=== PATIENT | male | born 1945 | race Caucasian/White ===

== ENCOUNTER 2016-07-24 11:11 | Inpatient (IN) ==
--- NOTE | 2016-07-24 11:25 | Emergency Department Note ---
Disposition Clinical Impression: Frail elderly, Fall, Blunt injury of chest, Abrasion, Malignancy, Facial injury , Tachycardia, Weakness, Abnormal EKG, Anemia, Lactic acidosis, Pleural effusion , COPD (chronic obstructive pulmonary disease), Gallbladder disease, Sinusitis Disposition: Admitted As Inpatient Referrals: Mady Aparicio MD [Primary Care Provider] - Forms: ED Satisfaction Letter General Adult HPI - General Chief complaint: ED Weakness Stated complaint: Weakness/low bp Time Seen by Provider: 07/24/16 11:23 Source: patient, family Limitations: no limitations - History of Present Illness HPI Narrative: 70-year-old male reports the emergency department multiple complaints. The patient has history of liver malignancy is on chemotherapy. He has home health he is here with multiple family members. They are concerned because the patient has had low blood pressures and has fallen a few times. There is a history of injury to the face, chest, and right upper extremity. The patient remembers the events but reports he is so weak he falls down. There is no history of seizure-like activity. The patient describes anterior chest pain and injury over the sternum. There is no history of coughing up blood or overt shortness of breath. There is no history of left arm and left jaw pain. No left upper or bilateral lower extremity pain. There is no history of difficulty moving the arms or legs independently, no unilateral weakness or numbness. No dysarthria or confusion. The patient denies neck or spinal pain. He has minor right arm pain. Scrapes and abrasions are reported. The patient is not anticoagulated. He reports bilateral rib pain. There is also concern for spreading malignancy, the family consulted with their oncologist reservation sales agent who recommended patient come to the ED and be evaluated for spurring tumors and other issues. The patient has a colostomy. He reportedly had some blackened stool a few days ago. None reported today. The patient is not known to be anticoagulated. There is no history of leg swelling or pain or coughing up blood. No history of fever. Pain Scale: 10 - Related Data Home Medications Medication Instructions Recorded Confirmed Atenolol [Tenormin] 0.5 tab PO DAILY 03/12/16 07/02/16 Lisinopril-HCTZ 20-12.5 [Prinzide 1 tab PO DAILY 03/12/16 07/02/16 20-12.5] Omeprazole [PriLOSEC] 40 mg PO DAILY 03/12/16 07/02/16 Previous Rx's Medication Instructions Recorded Capecitabine [Xeloda] 500 mg PO BID #56 tablet 03/18/16 Ondansetron [Zofran] 4 mg PO Q8HR PRN #90 tablet 04/07/16 Prochlorperazine Maleate 10 mg PO Q8HR PRN #90 tablet 04/07/16 [Compazine] OxyCODONE Immed Rel [Roxicodone 5 10 mg PO Q8HR PRN #90 tablet 07/02/16 MG] Alprazolam [Xanax 0.25 MG Tablet] 0.25 mg PO BID PRN #60 tablet 07/16/16 Allergies Allergy/AdvReac Type Severity Reaction Status Date / Time sulfamethoxazole AdvReac Rash Verified 07/24/16 11:19 trimethoprim AdvReac Rash Verified 07/24/16 11:19 All systems ED: reviewed and negative except as stated. Past Medical History - Past Medical History Medical history: Reports: cancer, COPD, hypertension, other Surgical history: Reports: cancer surgery, colectomy, other Psychiatric history: Reports: depression - Social History Smoking Status: Current every day smoker Smokeless Tobacco Status: No Alcohol use: Reports: occasionally Drug use: Reports: none Physical Exam - General Limitations: no limitations General appearance: alert, in no apparent distress - Head Head exam: other (Abrasions on the nose, no facial or skull deformity otherwise negative.Negative zuniga sign bilaterally. Mandible intact) - Eye Eye exam: Present: normal appearance, PERRL, EOMI, scleral icterus. Absent: conjunctival injection, miosis, mydriasis - ENT ENT exam: normal exam, normal oropharynx, mucous membranes moist, TM's normal bilaterally, normal external ear exam - Neck Neck exam: Present: normal inspection, full ROM, trachea midline. Absent: tenderness, meningismus - Chest Chest inspection: Present: symmetric chest wall rise, tenderness (Abrasions noted over the sternum, tenderness to the bilateral ribs and anterior chest. No crepitance or step-off.) - Respiratory Respiratory exam: Present: prolonged expiratory phase. Absent: respiratory distress, wheezes - Cardiovascular Cardiovascular exam: Present: normal rhythm, tachycardia - Abdominal Exam Abdominal exam: Present: soft, tenderness, normal bowel sounds, other ( Colostomy in place without evidence of black or bloody material in the bag.). Absent: guarding, rebound, rigidity, trauma, pulsatile mass - Extremities Exam Extremities exam: Present: full ROM, normal capillary refill, other (Abrasions right upper extremity. Full range of motion of bilateral upper extremities without evidence of joint or bony defect all 4 extremities are warm and well perfused without cyanosis or edema.). Absent: tenderness, pedal edema, joint swelling, calf tenderness - Expanded Lower Extremity Exam Hip/Pelvis exam: Present: full ROM. Absent: tenderness Upper leg exam: Present: full ROM. Absent: tenderness Knee exam: Present: full ROM. Absent: tenderness Lower leg exam: Present: full ROM. Absent: tenderness Ankle exam: Present: full ROM. Absent: tenderness Foot/toe exam: Present: full ROM. Absent: tenderness Neurovascular/Tendon exam: Present: normal capillary refill. Absent: motor deficit, sensory deficit, tendon deficit, extremity cold to touch, pallor - Back Exam Back exam: Present: normal inspection, full ROM. Absent: tenderness, CVA tenderness (R), CVA tenderness (L), vertebral tenderness - Neurological Exam Neurological exam: Present: alert, oriented X3, CN II-XII intact. Absent: motor sensory deficit - Psychiatric Psychiatric exam: Present: normal affect, normal mood - Skin Skin exam: Present: warm, dry, intact, normal color. Absent: rash, cyanosis, diaphoresis, erythema, pallor, mottled Course Vital Signs Temperature 98.5 F 07/24/16 11:16 Pulse Rate 109 07/24/16 11:16 Respiratory Rate 18 07/24/16 11:16 Blood Pressure 125/69 07/24/16 11:16 O2 Sat by Pulse Oximetry 98 07/24/16 11:16 Temperature 99 F 07/24/16 14:47 Pulse Rate 813 07/24/16 14:47 Respiratory Rate 18 07/24/16 14:47 Blood Pressure 118/71 07/24/16 14:47 O2 Sat by Pulse Oximetry 98 07/24/16 14:47 Oxygen Delivery Oxygen Delivery Room Air Medical Decision Making - MDM Narrative Medical decision making narrative: The patient is elderly, he has a known malignancy, he has had multiple falls, the patient appears to be stable at this time, he is scheduled to have more liver stents per the family, they state Dr. Raf Pratt was going to do more procedures this coming Tuesday. The patient has an elevated CRP, he was initially tachycardic on arrival, IV fluids were given. CT head shows sinusitis , CT chest shows some lymphadenopathy. CT abdomen shows some pericholecystic fluid with concerns for potential acute cholecystitis. I reviewed the case with the family who very very uncomfortable taking the patient home. I spoke with the oncologist on-call Dr. Odell who the family had talked with earlier in the day, the oncologist recommended the patient come to the ED. On review with the oncologist, he recommends hospital admission. I spoke with the hospitalist on-call who has accepted the patient to their care. I also spoke with Dr. Ruiz, general surgeon who will act as travel consultant. An ultrasound of the gallbladder has been ordered. The patient was given Unasyn and fluids. He is currently stable pending admission. Based on the patient's frail elderly status, weakness with multiple falls, abnormal abdominal CT, and associated with malignancy with recent liver stenting, I think could be appropriate to admit the patient to the hospital. He was initially tachycardic but this defervesced status post some fluids. Currently stable. - Lab Data Lab results reviewed: Yes I reviewed the patient's lab results. Result diagrams: 07/24/16 11:34 07/24/16 11:34 Lab Results 07/24/16 07/24/16 07/24/16 Range/Units 11:34 11:34 11:34 WBC 6.8 (4.3-11.1) K/mcL RBC 2.92 L (4.19-5.50) M/mcL Hgb 8.4 L (12.9-16.9) g/dL Hct 26.4 L (37.5-50.1) % MCV 90.4 (83.0-100.0) fL MCH 28.8 (28.0-33.3) pg MCHC 31.8 (31.6-35.5) g/dL RDW 15.7 H (11.5-14.5) % Plt Count 200 (140-400) K/mcL MPV 10.3 (9.4-12.4) fL Immature Gran % 5.1 H (0-4) % Seg Neutrophils % 51.2 % Lymphocytes % 14.8 % Monocytes % 28.3 % Eosinophils % 0.3 % Basophils % 0.3 % Neutrophils # 3.5 (1.6-8.9) K/mcL Lymphocytes # 1.0 (0.6-4.6) K/mcL Monocytes # 1.9 H (0.0-1.3) K/mcL Eosinophils # 0.0 (0.0-0.6) K/mcL Basophils # 0.0 (0.0-0.2) K/mcL Toxic Granulation Present A (Not Present) Platelet Estimate Normal (Normal) Microcytosis Present A (Not Present) PT (9.4-12.1) Seconds INR APTT (26.0-36.0) Seconds Sodium 135 L (136-145) mEq/L Potassium 3.8 (3.5-4.5) mEq/L Chloride 97 L (98-109) mEq/L Carbon Dioxide 30 H (19-29) mEq/L BUN 18 (8-26) mg/dL Creatinine 1.00 (0.72-1.25) mg/dL Est GFR ( Amer) > 60 (> 60) Est GFR (Non-Af Amer) > 60 (> 60) BUN/Creatinine Ratio 18 (6-26) Glucose 168 H (70-99) mg/dL Calculated Osmolality 286 (280-300) Lactic Acid (0.5-2.2) mmol/L Calcium 8.5 L (8.6-10.8) mg/dL Total Bilirubin (0.2-1.2) mg/dL Direct Bilirubin (0.0-0.5) mg/dL Indirect Bilirubin (0.0-1.2) mg/dL AST (5-34) Units/L ALT (0-55) Units/L Alkaline Phosphatase (38-126) Units/L Troponin I 0.01 (0-0.03) ng/mL C-Reactive Protein (Less than 5) mg/L Serum Total Protein (6.0-8.3) g/dL Albumin (3.5-5.0) g/dL Globulin (2.4-3.5) g/dL Albumin/Globulin Ratio (1.1-2.2) Lipase 19 (8-78) Units/L Urine Color (Yellow) Urine Clarity (Clear) Urine pH (5.0-8.0) pH Units Ur Specific [place] (1.010-1.025) Urine Protein (Neg-Trace) mg/dL Urine Glucose (UA) (Normal) mg/dL Urine Ketones (Negative) mg/dL Urine Blood (Negative) Urine Nitrite (Negative) Urine Bilirubin (Negative) Urine Urobilinogen (Normal) mg/dL Ur Leukocyte Esterase (Negative) Urine Microscopic RBC (0-3) per hpf Urine Microscopic WBC (0-3) per hpf Ur Squamous Epith Cells (None-Few) per lpf Urine Bacteria (None-Few) per hpf Hyaline Casts (None-Few) per lpf Ur Culture Indicated? (NO) 07/24/16 07/24/16 07/24/16 Range/Units 11:34 11:34 11:34 WBC (4.3-11.1) K/mcL RBC (4.19-5.50) M/mcL Hgb (12.9-16.9) g/dL Hct (37.5-50.1) % MCV (83.0-100.0) fL MCH (28.0-33.3) pg MCHC (31.6-35.5) g/dL RDW (11.5-14.5) % Plt Count (140-400) K/mcL MPV (9.4-12.4) fL Immature Gran % (0-4) % Seg Neutrophils % % Lymphocytes % % Monocytes % % Eosinophils % % Basophils % % Neutrophils # (1.6-8.9) K/mcL Lymphocytes # (0.6-4.6) K/mcL Monocytes # (0.0-1.3) K/mcL Eosinophils # (0.0-0.6) K/mcL Basophils # (0.0-0.2) K/mcL Toxic Granulation (Not Present) Platelet Estimate (Normal) Microcytosis (Not Present) PT 11.7 (9.4-12.1) Seconds INR 1.1 APTT 31.1 (26.0-36.0) Seconds Sodium (136-145) mEq/L Potassium (3.5-4.5) mEq/L Chloride (98-109) mEq/L Carbon Dioxide (19-29) mEq/L BUN (8-26) mg/dL Creatinine (0.72-1.25) mg/dL Est GFR ( Amer) (> 60) Est GFR (Non-Af Amer) (> 60) BUN/Creatinine Ratio (6-26) Glucose (70-99) mg/dL Calculated Osmolality (280-300) Lactic Acid 2.3 H (0.5-2.2) mmol/L Calcium (8.6-10.8) mg/dL Total Bilirubin 2.7 H (0.2-1.2) mg/dL Direct Bilirubin 1.9 H (0.0-0.5) mg/dL Indirect Bilirubin 0.8 (0.0-1.2) mg/dL AST 66 H (5-34) Units/L ALT 78 H (0-55) Units/L Alkaline Phosphatase 620 H (38-126) Units/L Troponin I (0-0.03) ng/mL C-Reactive Protein (Less than 5) mg/L Serum Total Protein 6.6 (6.0-8.3) g/dL Albumin 1.8 L (3.5-5.0) g/dL Globulin 4.8 H (2.4-3.5) g/dL Albumin/Globulin Ratio 0.4 L (1.1-2.2) Lipase (8-78) Units/L Urine Color (Yellow) Urine Clarity (Clear) Urine pH (5.0-8.0) pH Units Ur Specific [place] (1.010-1.025) Urine Protein (Neg-Trace) mg/dL Urine Glucose (UA) (Normal) mg/dL Urine Ketones (Negative) mg/dL Urine Blood (Negative) Urine Nitrite (Negative) Urine Bilirubin (Negative) Urine Urobilinogen (Normal) mg/dL Ur Leukocyte Esterase (Negative) Urine Microscopic RBC (0-3) per hpf Urine Microscopic WBC (0-3) per hpf Ur Squamous Epith Cells (None-Few) per lpf Urine Bacteria (None-Few) per hpf Hyaline Casts (None-Few) per lpf Ur Culture Indicated? (NO) 07/24/16 07/24/16 Range/Units 11:34 12:14 WBC (4.3-11.1) K/mcL RBC (4.19-5.50) M/mcL Hgb (12.9-16.9) g/dL Hct (37.5-50.1) % MCV (83.0-100.0) fL MCH (28.0-33.3) pg MCHC (31.6-35.5) g/dL RDW (11.5-14.5) % Plt Count (140-400) K/mcL MPV (9.4-12.4) fL Immature Gran % (0-4) % Seg Neutrophils % % Lymphocytes % % Monocytes % % Eosinophils % % Basophils % % Neutrophils # (1.6-8.9) K/mcL Lymphocytes # (0.6-4.6) K/mcL Monocytes # (0.0-1.3) K/mcL Eosinophils # (0.0-0.6) K/mcL Basophils # (0.0-0.2) K/mcL Toxic Granulation (Not Present) Platelet Estimate (Normal) Microcytosis (Not Present) PT (9.4-12.1) Seconds INR APTT (26.0-36.0) Seconds Sodium (136-145) mEq/L Potassium (3.5-4.5) mEq/L Chloride (98-109) mEq/L Carbon Dioxide (19-29) mEq/L BUN (8-26) mg/dL Creatinine (0.72-1.25) mg/dL Est GFR ( Amer) (> 60) Est GFR (Non-Af Amer) (> 60) BUN/Creatinine Ratio (6-26) Glucose (70-99) mg/dL Calculated Osmolality (280-300) Lactic Acid (0.5-2.2) mmol/L Calcium (8.6-10.8) mg/dL Total Bilirubin (0.2-1.2) mg/dL Direct Bilirubin (0.0-0.5) mg/dL Indirect Bilirubin (0.0-1.2) mg/dL AST (5-34) Units/L ALT (0-55) Units/L Alkaline Phosphatase (38-126) Units/L Troponin I (0-0.03) ng/mL C-Reactive Protein 109 H (Less than 5) mg/L Serum Total Protein (6.0-8.3) g/dL Albumin (3.5-5.0) g/dL Globulin (2.4-3.5) g/dL Albumin/Globulin Ratio (1.1-2.2) Lipase (8-78) Units/L Urine Color Dark Yellow (Yellow) Urine Clarity Cloudy A (Clear) Urine pH 6.0 (5.0-8.0) pH Units Ur Specific [place] 1.025 (1.010-1.025) Urine Protein 100 H (Neg-Trace) mg/dL Urine Glucose (UA) Normal (Normal) mg/dL Urine Ketones Negative (Negative) mg/dL Urine Blood Negative (Negative) Urine Nitrite Negative (Negative) Urine Bilirubin Moderate H (Negative) Urine Urobilinogen 4.0 H (Normal) mg/dL Ur Leukocyte Esterase Trace H (Negative) Urine Microscopic RBC 0-3 (0-3) per hpf Urine Microscopic WBC 0-3 (0-3) per hpf Ur Squamous Epith Cells Many H (None-Few) per lpf Urine Bacteria None Seen (None-Few) per hpf Hyaline Casts None Seen (None-Few) per lpf Ur Culture Indicated? YES A (NO) - Radiology Data Radiology results reviewed: Yes I reviewed the patient's radiology results.
[2016-07-24] MEDS ORDERED: 0.9 % Sodium Chloride 1,000 ML IVC ONE (11:27)
[2016-07-24 11:53] LABS: Basophils % 0.3 %; Eosinophils % 0.3 %; Hematocrit 26.4 % (37.5-50.1); Hemoglobin 8.4 g/dL (12.9-16.9); Immature Granulocytes % 5.1 % (0-4); Lymphocytes % 14.8 %; Mean Corpuscular HGB Conc 31.8 g/dL (31.6-35.5); Mean Corpuscular Hemoglobin 28.8 pg (28.0-33.3); Mean Corpuscular Volume 90.4 fL (83.0-100.0); Mean Platelet Volume 10.3 fL (9.4-12.4); Monocytes # 1.9 K/mcL (0.0-1.3); Monocytes % 28.3 %; Neutrophils # 3.5 K/mcL (1.6-8.9); Platelet Count 200 K/mcL (140-400); Red Blood Count 2.92 M/mcL (4.19-5.50); Red Cell Distribution Width 15.7 % (11.5-14.5); Segmented Neutrophils % 51.2 %
[2016-07-24] MEDS ORDERED: Tdap (Boostrix) Vaccine 0.5 ML SYRINGE IM ONE (11:53)
[2016-07-24 11:58] LABS: INR 1.1; Prothrombin Time 11.7 Seconds (9.4-12.1)
[2016-07-24 12:01] LABS: Activated Partial Thrombo Time 31.1 Seconds (26.0-36.0)
[2016-07-24 12:07] LABS: Microcytosis Present (Not Present)
[2016-07-24 12:08] LABS: Albumin/Globulin Ratio 0.4 (1.1-2.2); Bilirubin,Direct 1.9 mg/dL (0.0-0.5); Bilirubin,Indirect 0.8 mg/dL (0.0-1.2); Bilirubin,Total 2.7 mg/dL (0.2-1.2); Globulin 4.8 g/dL (2.4-3.5); Platelet Estimate Normal (Normal); Total Protein 6.6 g/dL (6.0-8.3); Toxic Granulation Present (Not Present)
[2016-07-24 12:09] LABS: BUN/Creatinine Ratio 18 (6-26); Blood Urea Nitrogen 18 mg/dL (8-26); Calcium 8.5 mg/dL (8.6-10.8); Carbon Dioxide 30 mEq/L (19-29); Chloride 97 mEq/L (98-109); Glucose 168 mg/dL (70-99); Osmolality,Calculated 286 (280-300); Potassium 3.8 mEq/L (3.5-4.5); Sodium 135 mEq/L (136-145); eGFR For African Americans > 60 (> 60); eGFR For Non-African Americans > 60 (> 60)
[2016-07-24 12:10] LABS: Albumin 1.8 g/dL (3.5-5.0)
[2016-07-24 12:31] LABS: Bilirubin,Urine Moderate (Negative); Blood,Urine Negative (Negative); Clarity,Urine Cloudy (Clear); Glucose,Urine (UA) Normal (Normal); Ketones,Urine Negative (Negative); Leukocyte Esterase,Urine Trace (Negative); Nitrite,Urine Negative (Negative); Protein,Urine 100 mg/dL (Neg-Trace); Specific Gravity,Urine 1.025 (1.010-1.025)
[2016-07-24 12:33] LABS: Bacteria,Urine None Seen per hpf (None-Few); Hyaline Casts,Urine None Seen per lpf (None-Few); Squamous Epithelial Cell,Urine Many per lpf (None-Few); WBC,Urine 0-3 per hpf (0-3)
[2016-07-24 12:47] LABS: RBC,Urine 0-3 per hpf (0-3)
[2016-07-24 12:48] LABS: Color,Urine Dark Yellow (Yellow)
[2016-07-24] MEDS ORDERED: Ampicillin/Sulbactam 3,000 MG in 0.9 % Sodium Chloride Mini Bag 100 ML IVPB ONE (14:01)
[2016-07-24 14:25] LABS: Lipase 19 Units/L (8-78)
[2016-07-24] MEDS ORDERED: Naloxone 0.4 MG/ML INJ IVP PRN (17:18)
[2016-07-24] MEDS ORDERED: *HR* Morphine 2 MG/ML SYRINGE IVP PRN (17:18)
[2016-07-24] MEDS ORDERED: *HR* OxyCODONE Immed Rel 5 MG TABLET PO PRN (17:23)
[2016-07-24] MEDS ORDERED: ALPRAZolam 0.25 MG TABLET PO PRN (17:23)
--- NOTE | 2016-07-24 17:51 | Internal Med History&Physical ---
Date of Encounter: 07/24/16 Time of Encounter: 17:25 Assessment and Plan (1) Acute cholecystitis Current visit: Yes Status: Suspected Patient presenting with lightheadedness and dizziness and CT findings suggestive of acute cholecystitis. Will place patient in the hospital for observation for further workup. Keep nothing by mouth for now. IV fluids. IV antibiotics. Pain control. Consult surgery. (2) Anemia Current visit: Yes Status: Chronic Hemoglobin 8.4 today. It was 8.7 on 07/16/16. We will monitor blood counts. Denies any active melanotic stools. GI will be consulted. Qualifiers: Anemia type: other cause Other causes of anemia: chronic disease, neoplastic Qualified Code(s): D63.0 - Anemia in neoplastic disease (3) Colon cancer metastasized to liver Current visit: Yes Status: Chronic Patient with colon cancer metastasis to liver status post biliary stents. Patient was scheduled to undergo permanent stent exchange on Tuesday. We will consult GI for their recommendations. (4) Fall Current visit: Yes Status: Acute Due to dizziness and lightheadedness and dehydration. Will hydrate intravenously. Check orthostatic blood pressure. Physical therapy. Qualifiers: Encounter type: initial encounter Qualified Code(s): W19.XXXA - Unspecified fall, initial encounter (5) Blunt injury of chest Current visit: Yes Status: Acute No fractures noted on CT. Will treat symptomatically for pain control. Also give incentive spirometry for atelectasis. Qualifiers: Encounter type: initial encounter Qualified Code(s): S29.8XXA - Other specified injuries of thorax, initial encounter (6) COPD (chronic obstructive pulmonary disease) Current visit: No Status: Chronic We will use bronchodilator nebs as needed and O2 supplementation as needed. Patient is currently in acute exacerbation. Qualifiers: COPD type: emphysema Emphysema type: other Qualified Code(s): J43.8 - Other emphysema (7) DVT prophylaxis Current visit: Yes Status: Acute With SCDs. We will hold off on medical anticoagulation due to possible GI bleed. Internal Medicine - H&P: HPI Chief complaint: Weakness, dizziness, fall and low blood pressure Admitted From: Emergency Dept Plans for Post Hospital Care: Home History of present illness: Mr. 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 He had called his oncologist who advised him to come to the ER. He denies any nausea or diarrhea. He was seen by oncology on the of this month and at that time he had reported some dark colored stools. He says this has since cleared up. Patient is status post colectomy and has colostomy bag in place. He denies any palpitations. Denies any fever or chills or night sweats. No cough or shortness of breath. He does report that he has not been drinking enough water and feels dehydrated. Past Med Surg Social Fam HX - Past Medical History Attestation: Yes The following information was validated with the patient. Source: patient Medical history: cancer, COPD, hypertension, other (Colon cancer with metastases to liver) Psychiatric history: depression - Past Surgical History Surgical History: cancer surgery, colectomy, other - Social History Smoking Status: Current every day smoker Smokeless Tobacco Status: No Alcohol use: occasionally Drug use: none Internal Medicine - H&P: Meds Atenolol [Tenormin] 25 mg PO DAILY 03/12/16 [History] Lisinopril-HCTZ 20-12.5 [Prinzide 20-12.5] 1 tab PO DAILY 03/12/16 [History] Omeprazole [PriLOSEC] 40 mg PO DAILY 03/12/16 [History] Ondansetron [Zofran] 4 mg PO Q8HR PRN #90 tablet 04/07/16 [Rx] Prochlorperazine Maleate [Compazine] 10 mg PO Q8HR PRN #90 tablet 04/07/16 [Rx] OxyCODONE Immed Rel [Roxicodone 5 MG] 10 mg PO Q8HR PRN #90 tablet 07/02/16 [Rx] Alprazolam [Xanax 0.25 MG Tablet] 0.25 mg PO BID PRN #60 tablet 07/16/16 [Rx] Allergies sulfamethoxazole Allergy (Verified 07/24/16 15:57) Rash trimethoprim Allergy (Verified 07/24/16 15:57) Rash All Systems PM: A 10-system review of systems was performed and is negative for pertinent findings except as documented above in the HPI. - Constitutional Constitutional: lethargy, malaise - EENT Eyes: no change in vision, no discharge, no pain, no photophobia Ears: no ear discharge, no ear pain, no tinnitus Nose, mouth and throat: no dysphagia, no nasal discharge, no neck pain, no sore throat - Cardiovascular Cardiovascular ROS IM: no chest pain, no diaphoresis, no dyspnea, no lightheadedness, no palpitations, no syncope - Respiratory Respiratory: no cough, no dyspnea, no wheezing, no excessive phlegm production - Gastrointestinal Gastrointestinal: no abdominal pain, no diarrhea, no hematemesis, no hematochezia, no melena, no nausea, no vomiting - Musculoskeletal Musculoskeletal ROS IM: no numbness, no tingling - Integumentary Integumentary IM: jaundice, no rash, no unusual bruising - Neurological Neurological ROS: no confusion, no convulsions, no focal weakness, no numbness, no tingling, no tremor(s) - Hematologic/Lymphatic Hematologic/Lymphatic: no easy bruising - Constitutional Vitals: Temp Pulse Resp BP Pulse Ox 98.9 F 84 16 124/82 97 07/24/16 17:01 07/24/16 15:54 07/24/16 17:01 07/24/16 17:01 07/24/16 15:54 General appearance: Present: cooperative, mild distress, A&O X 3, answers questions appropriately - Head Head exam: Present: atraumatic, normocephalic - Eye Eye exam: Present: EOMI, PERRL, scleral icterus, conjuntiva pink, sclera anicteric - Neck Neck exam general surgery: Present: supple, trachea midline. Absent: lymphadenopathy - Respiratory Respiratory exam: Present: CTAB. Absent: accessory muscle use, rales, rhonchi, wheezes - Cardiovascular Cardiovascular exam: Present: RRR, +S1, +S2. Absent: diastolic murmur, gallop, rubs, systolic murmur - GI/Abdominal GI/Abdominal exam: Present: normal bowel sounds, soft, no peritoneal signs. Absent: distended, tenderness Additional comments: Colostomy bag in place - Extremities Exam Extremities exam: Present: warm, radial pulses palpable and symetrical. Absent : calf tenderness, cyanotic, pedal edema - Neurological Exam Neurological exam: Present: alert, CN II-XII intact, oriented X3, no focal deficits. Absent: facial droop, speech deficit - Psychiatric Psychiatric exam: Present: flat affect - Skin Skin exam: Present: dry, intact Internal Med - H&P Results - Labs CBC & Chem 7: 07/24/16 11:34 07/24/16 11:34 - Impressions Impressions Chest X-Ray 07/24/16 11:25 IMPRESSION: 1. No acute cardiopulmonary process identified. 2. COPD. D/ / 07/24/2016 12:14:59 Wesley Laws MD / [email or web address] Interpreting Provider: Wesley Laws MD Head CT 07/24/16 11:41 IMPRESSION: No acute intracranial abnormality. Right maxillary and left sphenoid sinusitis. D/ / Bobby Alexis MD / Bobby Alexis MD Interpreting Provider: Bobby Alexis MD Abdomen/Pelvis CT 07/24/16 11:42 IMPRESSION: Gallbladder distension and wall thickening with possible pericholecystic fluid concerning for acute cholecystitis. Interval placement of biliary stents. Degree of intrahepatic biliary ductal dilation is similar to the previous exam. Right hepatic lobe mass mildly increased in size. Small volume ascites increased as well. Central hepatic mass poorly delineated. Abnormal soft tissue fills multiple central bile ducts. Stable left adrenal nodule. Circumferential bladder wall thickening, unchanged. D/ / Yaniv Jiang MD / Yaniv Jiang MD Interpreting Provider: Yaniv Jiang MD Chest CT 07/24/16 11:42 IMPRESSION: Slight increase in size of lymph node anterior to the pericardium, either reactive or metastatic Bandlike opacities at the lung bases, likely subsegmental atelectasis. There is trace pleural fluid Mild emphysema D/ / Paul Higginbotham MD / Paul Higginbotham MD Interpreting Provider: Paul Higginbotham MD Abdomen Ultrasound 07/24/16 14:26 IMPRESSION: Gallbladder sludge/nonshadowing stones with negative Wagner sign. There is mild gallbladder wall thickening and trace pericholecystic/perihepatic fluid. These findings may be reactive. D/ / Yaniv Jiang MD / Yaniv Jiang MD Interpreting Provider: Yaniv Jiang MD - Attending Attestation This document has been at least partially created by [employer] voice recognition technology by Dr. Ragsdale. Errors in grammar, wording or other phrases may exist. If errors are found after the documentation is signed, they will be addressed individually in the addendum section of this document when appropriate.
[2016-07-24] MEDS ORDERED: *HR* Heparin 5,000 UNIT/ML VIAL SQ SCH (18:00)
[2016-07-24] MEDS ORDERED: Ipratropium/Albuterol Neb 3 ML IH PRN (18:02)
--- NOTE | 2016-07-24 18:16 | General Surgery Consult Note ---
<Floyd Ulloa - Last Filed: 07/24/16 18:10> Date of Encounter: 07/24/16 Time of Encounter: 18:10 Assessment and Plan (1) Acute cholecystitis Current Visit: Yes Status: Suspected Pt. initially presented for fall on right side of chest d/t lightheadedness He has a hx of colon cx with liver metastasis s/p biliary stents. Patient was scheduled to undergo permanent stent exchange on Tuesday. RUQ U/S revealed gallbladder sludge/nonshadowing stones with negative Wagner sign. There is mild gallbladder wall thickening and trace pericholecystic/ perihepatic fluid. These findings may be reactive vs. 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 Schultz is his oncologist (3) Fall Current Visit: Yes Status: Acute CT head negative right sided abdominal pain s/p fall Qualifiers: Encounter type: initial encounter Qualified Code(s): W19.XXXA - Unspecified fall, initial encounter History of Present Illness Consult date: 07/24/16 Reason for consult: other (abnormal gallbladder findings on CT) Requesting physician: Fred Stringer History of present illness: Mr. 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 He had called his oncologist who advised him to come to the ER. He denies any nausea or diarrhea. He was seen by oncology on the 10th of this month and at that time he had reported some dark colored stools. He says this has since cleared up. Patient is status post colectomy and has colostomy bag in place. Abd/Pel CT revealed gallbladder distention and wall thickening with possible pericholecystic fluid concerning for acute cholecystitis. U/S revealed gallbladder sludge/nonshadowing stones with negative Wagner sign. There is mild gallbladder wall thickening and trace pericholecystic/perihepatic fluid. He denies any abdominal pain at this time or any nausea/vomiting. There is some tenderness in the RUQ but wagner sign is absent. Past Med Surg Social Fam HX - Past Medical History Medical history: cancer, COPD, hypertension, other (Colon cancer with metastases to liver) Psychiatric history: depression - Past Surgical History Surgical History: cancer surgery, colectomy, other - Social History Smoking Status: Current every day smoker Smokeless Tobacco Status: No Alcohol use: occasionally Drug use: none Medications and Allergies Atenolol [Tenormin] 25 mg PO DAILY 03/12/16 [History] Lisinopril-HCTZ 20-12.5 [Prinzide 20-12.5] 1 tab PO DAILY 03/12/16 [History] Omeprazole [PriLOSEC] 40 mg PO DAILY 03/12/16 [History] Ondansetron [Zofran] 4 mg PO Q8HR PRN #90 tablet 04/07/16 [Rx] Prochlorperazine Maleate [Compazine] 10 mg PO Q8HR PRN #90 tablet 04/07/16 [Rx] OxyCODONE Immed Rel [Roxicodone 5 MG] 10 mg PO Q8HR PRN #90 tablet 07/02/16 [Rx] Alprazolam [Xanax 0.25 MG Tablet] 0.25 mg PO BID PRN #60 tablet 07/16/16 [Rx] Allergies sulfamethoxazole Allergy (Verified 07/24/16 15:57) Rash trimethoprim Allergy (Verified 07/24/16 15:57) Rash Review of Systems All systems PM: reviewed and no additional remarkable complaints except as stated All systems PM: A 10-system review of systems was performed and is negative for pertinent findings except as documented above in the HPI. - Constitutional as per HPI - Cardiovascular no chest pain - Gastrointestinal no abdominal pain, no constipation, no diarrhea General Surgery Exam Initial Vital Signs Temp Pulse Resp BP Pulse Ox 98.5 F 109 18 125/69 98 07/24/16 11:16 18 11:16 07/24/16 11:16 07/24/16 11:16 07/24/16 11:16 - General physical appearance no distress, cachectic, chronically ill - Eyes icteric - Neck trachea midline - Respiratory negative: clear to auscultation wheezing: bilateral - Cardiovascular Cardiovascular exam: Present: RRR, no murmurs/rubs/gallops - Abdomen Abdomen general surgery: Present: bowel sounds present, tender, guarding ( possible involuntary guarding, but there is no abdominal pain.). Absent: rebound Abdominal Tenderness: Present: RUQ - Integumentary Integumentary general surgery: Present: warm and dry - Neurologic Present: CN 2-12 grossly intact, normal sensation - Psychiatric Psychiatric general surgery: Present: A&Ox3 Exam Initial Vital Signs Temp Pulse Resp BP Pulse Ox 98.5 F 109 18 125/69 98 07/24/16 11:16 07/24/16 11:16 07/24/16 11:16 07/24/16 11:16 07/24/16 11:16 Results - Labs 07/24/16 11:34 07/24/16 11:34 Abnormal lab results RBC 2.92 M/mcL (4.19-5.50) L 07/24/16 11:34 Hgb 8.4 g/dL (12.9-16.9) L 07/24/16 11:34 Hct 26.4 % (37.5-50.1) L 07/24/16 11:34 RDW 15.7 % (11.5-14.5) H 07/24/16 11:34 Immature Gran % 5.1 % (0-4) H 07/24/16 11:34 Monocytes # 1.9 K/mcL (0.0-1.3) H 07/24/16 11:34 Toxic Granulation Present (Not Present) A 07/24/16 11:34 Microcytosis Present (Not Present) A 07/24/16 11:34 Sodium 135 mEq/L (136-145) L 07/24/16 11:34 Chloride 97 mEq/L (98-109) L 07/24/16 11:34 Carbon Dioxide 30 mEq/L (19-29) H 07/24/16 11:34 Glucose 168 mg/dL (70-99) H 07/24/16 11:34 Lactic Acid 2.3 mmol/L (0.5-2.2) H 07/24/16 11:34 Calcium 8.5 mg/dL (8.6-10.8) L 07/24/16 11:34 Total Bilirubin 2.7 mg/dL (0.2-1.2) H 07/24/16 11:34 Direct Bilirubin 1.9 mg/dL (0.0-0.5) H 07/24/16 11:34 AST 66 Units/L (5-34) H 07/24/16 11:34 ALT 78 Units/L (0-55) H 07/24/16 11:34 Alkaline Phosphatase 620 Units/L (38-126) H 07/24/16 11:34 C-Reactive Protein 109 mg/L (Less than 5) H 07/24/16 11:34 Albumin 1.8 g/dL (3.5-5.0) L 07/24/16 11:34 Globulin 4.8 g/dL (2.4-3.5) H 07/24/16 11:34 Albumin/Globulin Ratio 0.4 (1.1-2.2) L 07/24/16 11:34 Urine Clarity Cloudy (Clear) A 07/24/16 12:14 Urine Protein 100 mg/dL (Neg-Trace) H 07/24/16 12:14 Urine Bilirubin Moderate (Negative) H 07/24/16 12:14 Urine Urobilinogen 4.0 mg/dL (Normal) H 07/24/16 12:14 Ur Leukocyte Esterase Trace (Negative) H 07/24/16 12:14 Ur Squamous Epith Cells Many per lpf (None-Few) H 07/24/16 12:14 Ur Culture Indicated? YES (NO) A 07/24/16 12:14 All other labs normal. Consult Discharge Plan - Plan Referrals: Mady Aparicio MD [Primary Care Provider] - <Isra Ruiz - Last Filed: 07/25/16 13:20> Date of Encounter: 07/24/16 Review of Systems All systems PM: A 10-system review of systems was performed and is negative for pertinent findings except as documented above in the HPI. General Surgery Exam Initial Vital Signs Temp Pulse Resp BP Pulse Ox 98.5 F 109 18 125/69 98 07/24/16 11:16 07/24/16 11:16 07/24/16 11:16 07/24/16 11:16 07/24/16 11:16 Exam Initial Vital Signs Temp Pulse Resp BP Pulse Ox 98.5 F 109 18 125/69 98 07/24/16 11:16 07/24/16 11:16 07/24/16 11:16 07/24/16 11:16 07/24/16 11:16 Results - Labs 07/25/16 06:00 07/25/16 06:15 Abnormal lab results RBC 2.66 M/mcL (4.19-5.50) L 07/25/16 06:00 Hgb 7.5 g/dL (12.9-16.9) L 07/25/16 06:00 Hct 24.1 % (37.5-50.1) L 07/25/16 06:00 MCHC 31.1 g/dL (31.6-35.5) L 07/25/16 06:00 RDW 15.8 % (11.5-14.5) H 07/25/16 06:00 Immature Gran % 5.1 % (0-4) H 07/24/16 11:34 Reactive Lymphocytes Present (Not Present) A 07/25/16 06:00 Toxic Granulation Present (Not Present) A 07/24/16 11:34 Large Platelets Present (Not Present) A 07/25/16 06:00 Polychromasia 1+ (Not Present) A 07/25/16 06:00 Anisocytosis 1+ (Not Present) A 07/25/16 06:00 Microcytosis Present (Not Present) A 07/24/16 11:34 Lactic Acid 2.3 mmol/L (0.5-2.2) H 07/24/16 11:34 Calcium 8.0 mg/dL (8.6-10.8) L 07/25/16 06:15 Total Bilirubin 3.5 mg/dL (0.2-1.2) H 07/25/16 06:15 Direct Bilirubin 1.9 mg/dL (0.0-0.5) H 07/24/16 11:34 AST 77 Units/L (5-34) H 07/25/16 06:15 ALT 76 Units/L (0-55) H 07/25/16 06:15 Alkaline Phosphatase 606 Units/L (38-126) H 07/25/16 06:15 C-Reactive Protein 109 mg/L (Less than 5) H 07/24/16 11:34 Serum Total Protein 5.8 g/dL (6.0-8.3) L 07/25/16 06:15 Albumin 1.5 g/dL (3.5-5.0) L 07/25/16 06:15 Globulin 4.3 g/dL (2.4-3.5) H 07/25/16 06:15 Albumin/Globulin Ratio 0.3 (1.1-2.2) L 07/25/16 06:15 Urine Clarity Cloudy (Clear) A 07/24/16 12:14 Urine Protein 100 mg/dL (Neg-Trace) H 07/24/16 12:14 Urine Bilirubin Moderate (Negative) H 07/24/16 12:14 Urine Urobilinogen 4.0 mg/dL (Normal) H 07/24/16 12:14 Ur Leukocyte Esterase Trace (Negative) H 07/24/16 12:14 Ur Squamous Epith Cells Many per lpf (None-Few) H 07/24/16 12:14 Ur Culture Indicated? YES (NO) A 07/24/16 12:14 Diabetes panel 07/25/16 Range/Units 06:15 Sodium 138 (136-145) mEq/L Potassium 3.5 (3.5-4.5) mEq/L Chloride 103 (98-109) mEq/L Carbon Dioxide 28 (19-29) mEq/L BUN 14 (8-26) mg/dL Creatinine 0.83 (0.72-1.25) mg/dL Glucose 75 (70-99) mg/dL Calcium 8.0 L (8.6-10.8) mg/dL AST 77 H (5-34) Units/L ALT 76 H (0-55) Units/L Alkaline Phosphatase 606 H (38-126) Units/L Albumin 1.5 L (3.5-5.0) g/dL Calcium panel 07/25/16 Range/Units 06:15 Calcium 8.0 L (8.6-10.8) mg/dL Albumin 1.5 L (3.5-5.0) g/dL Pituitary panel 07/25/16 Range/Units 06:15 Sodium 138 (136-145) mEq/L Potassium 3.5 (3.5-4.5) mEq/L Chloride 103 (98-109) mEq/L Carbon Dioxide 28 (19-29) mEq/L BUN 14 (8-26) mg/dL Creatinine 0.83 (0.72-1.25) mg/dL Glucose 75 (70-99) mg/dL Calcium 8.0 L (8.6-10.8) mg/dL Adrenal panel 07/25/16 Range/Units 06:15 Sodium 138 (136-145) mEq/L Potassium 3.5 (3.5-4.5) mEq/L Chloride 103 (98-109) mEq/L Carbon Dioxide 28 (19-29) mEq/L BUN 14 (8-26) mg/dL Creatinine 0.83 (0.72-1.25) mg/dL Glucose 75 (70-99) mg/dL Calcium 8.0 L (8.6-10.8) mg/dL Total Bilirubin 3.5 H (0.2-1.2) mg/dL AST 77 H (5-34) Units/L ALT 76 H (0-55) Units/L Alkaline Phosphatase 606 H (38-126) Units/L Albumin 1.5 L (3.5-5.0) g/dL All other labs normal. - Attending Attestation I examined this patient and my medical decision-making was reviewed with the WEIGHER ALLOY/PA/Advanced Practice Nurse/Resident Physician. I agree with the documented findings, disposition and treatment plan as described except to the extent set forth below. The patient has a complex history of rectal carcinoma metastatic to liver. He is recently had biliary stent. He presents with some right sided abdominal pain after a fall. CAT scan may be suggestive of acute cholecystitis. He does not clinically fit the picture of acute cholecystitis and I would not make this presumptive diagnosis. We will continue to follow along with you for any clinical signs of cholecystitis and throughout the patient's course of treatment. Continue supportive care. Isra Ruiz MD FACS
[2016-07-24] MEDS: 0.9 % Sodium Chloride 1,000 ML IVC SCH (19:44)
[2016-07-24] MEDS: Ampicillin/Sulbactam 3,000 MG in 0.9 % Sodium Chloride Mini Bag 100 ML IVPB SCH (23:46)
[2016-07-25] MEDS: *HR* Morphine 2 MG/ML SYRINGE IVP PRN ×5 (00:46→18:26)
[2016-07-25] MEDS: Pantoprazole 40 MG VIAL IVP SCH ×2 (05:29→18:28)
[2016-07-25] MEDS: Ampicillin/Sulbactam 3,000 MG in 0.9 % Sodium Chloride Mini Bag 100 ML IVPB SCH ×3 (05:33→18:26)
[2016-07-25] MEDS: 0.9 % Sodium Chloride 1,000 ML IVC SCH (05:34)
[2016-07-25 06:13] LABS: Hematocrit 24.1 % (37.5-50.1); Hemoglobin 7.5 g/dL (12.9-16.9); Mean Corpuscular HGB Conc 31.1 g/dL (31.6-35.5); Mean Corpuscular Hemoglobin 28.2 pg (28.0-33.3); Mean Corpuscular Volume 90.6 fL (83.0-100.0); Mean Platelet Volume 9.8 fL (9.4-12.4); Platelet Count 185 K/mcL (140-400); Red Blood Count 2.66 M/mcL (4.19-5.50); Red Cell Distribution Width 15.8 % (11.5-14.5)
[2016-07-25] MEDS: D5% in 0.9% NACL 1,000 ML IVC SCH ×2 (06:17→16:09)
[2016-07-25 06:48] LABS: Alanine Aminotransferase 76 Units/L (0-55); Albumin/Globulin Ratio 0.3 (1.1-2.2); Alkaline Phosphatase 606 Units/L (38-126); Aspartate Amino Transferase 77 Units/L (5-34); BUN/Creatinine Ratio 17 (6-26); Bilirubin,Total 3.5 mg/dL (0.2-1.2); Blood Urea Nitrogen 14 mg/dL (8-26); Carbon Dioxide 28 mEq/L (19-29); Chloride 103 mEq/L (98-109); Globulin 4.3 g/dL (2.4-3.5); Glucose 75 mg/dL (70-99); Osmolality,Calculated 285 (280-300); Potassium 3.5 mEq/L (3.5-4.5); Total Protein 5.8 g/dL (6.0-8.3); eGFR For African Americans > 60 (> 60); eGFR For Non-African Americans > 60 (> 60)
[2016-07-25 06:49] LABS: Large Platelets Present (Not Present); Neutrophils # 3.8 K/mcL (1.6-8.9); Platelet Estimate Normal (Normal); Reactive Lymphocytes Present (Not Present)
[2016-07-25 06:50] LABS: Anisocytosis 1+ (Not Present)
[2016-07-25 06:51] LABS: Polychromasia 1+ (Not Present)
[2016-07-25 06:52] LABS: Albumin 1.5 g/dL (3.5-5.0)
[2016-07-25 06:53] LABS: Sodium 138 mEq/L (136-145)
--- NOTE | 2016-07-25 10:43 | Oncology Inp Consult Note ---
Date of Encounter: 07/25/16 Time of Encounter: 10:42 - Data of Consult Patient: known to practice within the last 3 years Consult date: 07/25/16 Requesting Physician: Batsheva Trent Primary Care Provider: Mady Aparicio MD - Consult Narrative Reason for consult: Metastatic colon cancer History of present illness: Mr. Izquierdo is a 70 year old male patient of the cancer center who has established oncologic care for metastatic colorectal cancer. He is followed by my partner Dr. Garcia and was last seen in the office . I have summarized patient's heme/onc background below based on Dr. Garcia 's most recent office report: Metastatic moderately differentiated adenocarcinoma of the sigmoid colon with liver lesions, S/P PET here prior to C6 CHEMO xelox with panitumumab, MEAGHAN wild type (started 08/02/14, first line) He had undergone a chest x-ray followed by a CT chest, which showed bilateral tree-in-bud nodularity compatible with atypical infection/inflammation, s/p antibiotics. Borderline mediastinal hilar lymphadenopathy were noted possibly reactive in nature. -CT chest had also shown liver lesions hence a CT scan of the abdomen and pelvis was obtained, which showed a large mass in the distal descending colon representing colon cancer. -Left adrenal gland mass around 2 cm -Descending colon mass with some patency of lumen. -Patient had exploratory laparotomy with sigmoid colectomy with end descending colostomy, Mariela pouch, en bloc resection of small bowel (with adherence), liver biopsies (3 lesions felt)-- -Microcytic anemia, also noted during hospitalization hemoglobin was 9.3, MCV was 72, ferritin was at 37. Path showed moderately differentiated adenocarcinoma invading serosa ,0/14 LN positive, biopsy of liver lesion positive. [id number] stage MIKA...meaghan unmutated S/P oxaliplatin on day 1 and xeloda 500mg PO BID Days 1-14 with 7 days off for every 21 day cycle CYCLE 1 on 08/02/14. PET after 2 months of treatment-decrease uptake in multiple liver lesions 03/07/2015, he had a CT scan of the chest showed no evidence of metastatic disease. He also had a CT scan of the abdomen and pelvis which indicated no obvious new liver lesions the previous noted liver lesions are calcified. There was a 2.1 x 1.2 mm hyperdense structure at the origin of the dilated left hepatic biliary ducts that could correlate to one of the metastatic lesion seen on the prior PET/CT. There were no new liver lesions. There was persistent left hydroureter and hydronephrosis. He took his last Rx around 07/22, and did not follow up Seen by PCP 02/21 and labs showed elevated LFTs. CEA was increased at 9.3 He returns for f/u with concern of progression of cancer CT CAP--liver lesions 2 inferior (new lesions noted). Progressive increase in the central lesion Bilirubin was upto 10--he had ERCP and stent placed. Path necrotic debri-benign vs malignant on 03/24 Rpt bilirubin 3.2 03/24 Uses oxygen at home He was scheduled for a stent change in . Patient is currently hospitalized for progressive weakness with failure to thrive at home resulting multiple recurrent falls and mechanical chest wall trauma. In May, patient had been noted to be hypotensive and was advised by Dr. Garcia to hold his blood pressure medications. Unfortunately, symptoms did not improve and he presented to the hospital for further evaluation. Workup and initial presentation revealed anemia with normal CBC otherwise. CT chest, abdomen, pelvis possible slight increase in size of lymph node anterior to the pericardium considered indeterminate, mildly increased size of right hepatic lobe mass. Otherwise, no clear evidence of progression of her underlying malignancy. Changes compatible with biliary decompression with stents. Intrahepatic biliary dilatation unchanged versus previous. Gallbladder distention and wall thickening with possible pericholecystic fluid raising concern about acute cholecystitis. Surgery has been consulted for recommendations regarding suspected cholecystitis. Oncology is consulted re: Patient's underlying metastatic colorectal cancer I saw and examined the patient at bedside and reviewed his chart for details of ongoing Hospital team which is much appreciated. He reports feeling considerably better compared to initial presentation. He is not having any acute symptoms referable to his underlying malignancy. Rest of past medical, surgical, family, social history detailed below and verified with patient today. Review of systems: 12 point review of systems performed with patient and positive findings noted in history of present illness. All other systems are negative: Physical exam: Selected Entries 07/25/16 06:44 Temperature 98.1 F Temperature Source Oral Pulse Rate 83 Respiratory Rate 18 Blood Pressure 133/80 Blood Pressure Position HOB Elevated O2 Sat by Pulse Oximetry 95 GENERAL: Alert and oriented, [default value] appearing. Mental Status: Affect appropriate for circumstances HEENT: Sclerae anicteric. No mucositis or thrush. No other oral or pharyngeal lesions or erythema. Skin: No rashes or petechiae. No evidence of skin malignancy Lymph nodes: No cervical, supraclavicular, axillary, or inguinal adenopathy. Lungs: Clear to auscultation bilaterally. Clear to percussion bilaterally. Cardiovascular: Regular rate and rhythm. No gallops, murmurs, or rubs. Abdomen: Soft, nontender; No organomegaly or masses palpable. Extremities: No edema. No calf swelling or tenderness. No joint deformity. Neurologic: Alert, normal gait; no focal weakness or sensory abnormalities. Results: Laboratory Last Values WBC 6.8 K/mcL (4.3-11.1) 07/25/16 06:00 RBC 2.66 M/mcL (4.19-5.50) L 07/25/16 06:00 Hgb 7.5 g/dL (12.9-16.9) L 07/25/16 06:00 Hct 24.1 % (37.5-50.1) L 07/25/16 06:00 MCV 90.6 fL (83.0-100.0) 07/25/16 06:00 MCH 28.2 pg (28.0-33.3) 07/25/16 06:00 MCHC 31.1 g/dL (31.6-35.5) L 07/25/16 06:00 RDW 15.8 % (11.5-14.5) H 07/25/16 06:00 Plt Count 185 K/mcL (140-400) 07/25/16 06:00 MPV 9.8 fL (9.4-12.4) 07/25/16 06:00 Immature Gran % 5.1 % (0-4) H 07/24/16 11:34 Seg Neutrophils % 54.0 % 07/25/16 06:00 Band Neutrophils % 2.0 % (0-4) 07/25/16 06:00 Lymphocytes % 30.0 % 07/25/16 06:00 Monocytes % 14.0 % 07/25/16 06:00 Eosinophils % 0.3 % 07/24/16 11:34 Basophils % 0.3 % 07/24/16 11:34 Neutrophils # 3.8 K/mcL (1.6-8.9) 07/25/16 06:00 Lymphocytes # 2.0 K/mcL (0.6-4.6) 07/25/16 06:00 Monocytes # 1.0 K/mcL (0.0-1.3) 07/25/16 06:00 Eosinophils # 0.0 K/mcL (0.0-0.6) 07/24/16 11:34 Basophils # 0.0 K/mcL (0.0-0.2) 07/24/16 11:34 Reactive Lymphocytes Present (Not Present) A 07/25/16 06:00 Toxic Granulation Present (Not Present) A 07/24/16 11:34 Platelet Estimate Normal (Normal) 07/25/16 06:00 Large Platelets Present (Not Present) A 07/25/16 06:00 Polychromasia 1+ (Not Present) A 07/25/16 06:00 Anisocytosis 1+ (Not Present) A 07/25/16 06:00 Microcytosis Present (Not Present) A 07/24/16 11:34 PT 11.7 Seconds (9.4-12.1) 07/24/16 11:34 INR 1.1 07/24/16 11:34 APTT 31.1 Seconds (26.0-36.0) 07/24/16 11:34 Sodium 138 mEq/L (136-145) 07/25/16 06:15 Potassium 3.5 mEq/L (3.5-4.5) 07/25/16 06:15 Chloride 103 mEq/L (98-109) 07/25/16 06:15 Carbon Dioxide 28 mEq/L (19-29) 07/25/16 06:15 BUN 14 mg/dL (8-26) 07/25/16 06:15 Creatinine 0.83 mg/dL (0.72-1.25) 07/25/16 06:15 Est GFR ( Amer) > 60 (> 60) 07/25/16 06:15 Est GFR (Non-Af Amer) > 60 (> 60) 07/25/16 06:15 BUN/Creatinine Ratio 17 (6-26) 07/25/16 06:15 Glucose 75 mg/dL (70-99) 07/25/16 06:15 POC Glucose 79 (58-89) 07/25/16 05:39 Calculated Osmolality 285 (280-300) 07/25/16 06:15 Lactic Acid 2.3 mmol/L (0.5-2.2) H 07/24/16 11:34 Calcium 8.0 mg/dL (8.6-10.8) L 07/25/16 06:15 Total Bilirubin 3.5 mg/dL (0.2-1.2) H 07/25/16 06:15 Direct Bilirubin 1.9 mg/dL (0.0-0.5) H 07/24/16 11:34 Indirect Bilirubin 0.8 mg/dL (0.0-1.2) 07/24/16 11:34 AST 77 Units/L (5-34) H 07/25/16 06:15 ALT 76 Units/L (0-55) H 07/25/16 06:15 Alkaline Phosphatase 606 Units/L (38-126) H 07/25/16 06:15 Troponin I 0.01 ng/mL (0-0.03) 07/24/16 11:34 C-Reactive Protein 109 mg/L (Less than 5) H 07/24/16 11:34 Serum Total Protein 5.8 g/dL (6.0-8.3) L 07/25/16 06:15 Albumin 1.5 g/dL (3.5-5.0) L 07/25/16 06:15 Globulin 4.3 g/dL (2.4-3.5) H 07/25/16 06:15 Albumin/Globulin Ratio 0.3 (1.1-2.2) L 07/25/16 06:15 Lipase 19 Units/L (8-78) 07/24/16 11:34 Urine Color Dark Yellow (Yellow) 07/24/16 12:14 Urine Clarity Cloudy (Clear) A 07/24/16 12:14 Urine pH 6.0 pH Units (5.0-8.0) 07/24/16 12:14 Ur Specific [place] 1.025 (1.010-1.025) 07/24/16 12:14 Urine Protein 100 mg/dL (Neg-Trace) H 07/24/16 12:14 Urine Glucose (UA) Normal mg/dL (Normal) 07/24/16 12:14 Urine Ketones Negative mg/dL (Negative) 07/24/16 12:14 Urine Blood Negative (Negative) 07/24/16 12:14 Urine Nitrite Negative (Negative) 07/24/16 12:14 Urine Bilirubin Moderate (Negative) H 07/24/16 12:14 Urine Urobilinogen 4.0 mg/dL (Normal) H 07/24/16 12:14 Ur Leukocyte Esterase Trace (Negative) H 07/24/16 12:14 Urine Microscopic RBC 0-3 per hpf (0-3) 07/24/16 12:14 Urine Microscopic WBC 0-3 per hpf (0-3) 07/24/16 12:14 Ur Squamous Epith Cells Many per lpf (None-Few) H 07/24/16 12:14 Urine Bacteria None Seen per hpf (None-Few) 07/24/16 12:14 Hyaline Casts None Seen per lpf (None-Few) 07/24/16 12:14 Ur Culture Indicated? YES (NO) A 07/24/16 12:14 Radiographic studies: I personally reviewed and interpreted patient's most recent imaging studies dated 07/24/16. I discussed the findings with the patient today. Chest X-Ray 07/24/16 11:25 IMPRESSION: 1. No acute cardiopulmonary process identified. 2. COPD. D/ / 07/24/2016 12:14:59 Wesley Laws MD / celia Interpreting Provider: Wesley Laws MD Head CT 07/24/16 11:41 IMPRESSION: No acute intracranial abnormality. Right maxillary and left sphenoid sinusitis. D/ / Bobby Alexis MD / Bobby Alexis MD Interpreting Provider: Bobby Alexis MD Abdomen/Pelvis CT 07/24/16 11:42 IMPRESSION: Gallbladder distension and wall thickening with possible pericholecystic fluid concerning for acute cholecystitis. Interval placement of biliary stents. Degree of intrahepatic biliary ductal dilation is similar to the previous exam. Right hepatic lobe mass mildly increased in size. Small volume ascites increased as well. Central hepatic mass poorly delineated. Abnormal soft tissue fills multiple central bile ducts. Stable left adrenal nodule. Circumferential bladder wall thickening, unchanged. D/ / Yaniv Jiang MD / Yaniv Jiang MD Interpreting Provider: Yaniv Jiang MD Chest CT 07/24/16 11:42 IMPRESSION: Slight increase in size of lymph node anterior to the pericardium, either reactive or metastatic Bandlike opacities at the lung bases, likely subsegmental atelectasis. There is trace pleural fluid Mild emphysema D/ / Paul Higginbotham MD / Paul Higginbotham MD Interpreting Provider: Paul Higginbotham MD Abdomen Ultrasound 07/24/16 14:26 IMPRESSION: Gallbladder sludge/nonshadowing stones with negative Wagner sign. There is mild gallbladder wall thickening and trace pericholecystic/perihepatic fluid. These findings may be reactive. D/ / Yaniv Jiang MD / Yaniv Jiang MD Interpreting Provider: Yaniv Jiang MD Impression/recommendations: Metastatic colon cancer: He is currently receiving palliative systemic therapy recommendations FOLFOX regimen and his last treatment was 07/09/16. Most recent imaging on tamoxifen markers do not show any unequivocal evidence of disease progression and it is not clear that his current presentation is on the basis of his underlying colon cancer progressing. We recommend supportive management for his symptoms as you are doing since he appears to be significant steady, incremental improvements. Upon discharge, he will return to his established care with Dr. Garcia for ongoing management of his colon cancer. It is possible that some of this progressive weakness may be chemoradiotherapy effect of chemotherapy although there has also been recent issues. Failure to thrive at home: There is concern about acute cholecystitis on the basis of distended gallbladder and possible pericholecystic fluid on imaging. Appreciate input from surgery. I agree that his current presentation is not typical of acute cholecystitis. In any event, will continue supportive management as you are doing. It is also possible that his indwelling temporary biliary stent may be contributing to his presentation by some reactive mechanism as infectious or otherwise. It is curious that he still has diffuse biliary dilatation despite stent decompression. Recommend to consult GI for evaluation of his biliary stent since he was supposed to have stent exchange with a permanent stent prior to his hospitalization anyways. Fortunately, he appears to be making steady, incremental improvement with ongoing supportive measures by the hospital team which is much appreciated. We will follow along. Unexplained anemia: On reviewing his records, his height is steady decline in his hemoglobin over the course of the last 3 months which is likely multifactorial in etiology with contribution from underlying malignancy, myelosuppressive chemotherapy. Recommend anemia workup to exclude possible additional contribution from hematinic deficiencies etc. Please send: Iron panel, ferritin level, folate, B12, LDH, TSH, T4 at a minimum. Given the significant decline in his hemoglobin, it may also be reasonable to give him 2 units of packed red cells to get his hemoglobin to 10g/dl which may also help his fatigue symptoms. We'll follow the patient along side you during this hospitalization but please do not hesitate to call regarding interval hematologic questions as they arise. Thank you for your excellent ongoing care for allowing us to see him while in- house. This report was created using voice recognition software and may contain errors. It was signed but not edited to expedite communication. Past Med Surg Social Fam HX - Past Medical History Medical history: cancer, COPD, hypertension Psychiatric history: depression - Past Surgical History Surgical History: cancer surgery, colectomy - Social History Smoking Status: Current every day smoker Smokeless Tobacco Status: No Alcohol use: occasionally Drug use: none Medications and Allergies Atenolol [Tenormin] 25 mg PO DAILY 03/12/16 [History] Lisinopril-HCTZ 20-12.5 [Prinzide 20-12.5] 1 tab PO DAILY 03/12/16 [History] Omeprazole [PriLOSEC] 40 mg PO DAILY 03/12/16 [History] Ondansetron [Zofran] 4 mg PO Q8HR PRN #90 tablet 04/07/16 [Rx] Prochlorperazine Maleate [Compazine] 10 mg PO Q8HR PRN #90 tablet 04/07/16 [Rx] OxyCODONE Immed Rel [Roxicodone 5 MG] 10 mg PO Q8HR PRN #90 tablet 07/02/16 [Rx] Alprazolam [Xanax 0.25 MG Tablet] 0.25 mg PO BID PRN #60 tablet 07/16/16 [Rx] Allergies sulfamethoxazole Allergy (Verified 07/24/16 15:57) Rash trimethoprim Allergy (Verified 07/24/16 15:57) Rash Oncology - Exam - Constitutional Vitals: Temp Pulse Resp BP Pulse Ox 98.1 F 83 18 133/80 95 07/25/16 06:44 07/25/16 06:44 07/25/16 06:44 07/25/16 06:44 07/25/16 06:44 Oncology - Results - Labs Labs: Short CBC 07/25/16 Range/Units 06:00 WBC 6.8 (4.3-11.1) K/mcL Hgb 7.5 L (12.9-16.9) g/dL Hct 24.1 L (37.5-50.1) % Plt Count 185 (140-400) K/mcL Neutrophils # 3.8 (1.6-8.9) K/mcL BMP 07/25/16 06:15 Sodium 138 Potassium 3.5 Chloride 103 Carbon Dioxide 28 BUN 14 Creatinine 0.83 Glucose 75 Calcium 8.0 L Liver Function 07/25/16 Range/Units 06:15 Total Bilirubin 3.5 H (0.2-1.2) mg/dL AST 77 H (5-34) Units/L ALT 76 H (0-55) Units/L Alkaline Phosphatase 606 H (38-126) Units/L Albumin 1.5 L (3.5-5.0) g/dL Consult Discharge Plan - Plan Referrals: Mady Aparicio MD [Primary Care Provider] -
--- NOTE | 2016-07-25 12:57 | Electrocardiograph Report ---
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
--- NOTE | 2016-07-25 14:44 | General Surgery Progress Note ---
Date of Encounter: 07/25/16 Time of Encounter: 14:42 - Assessment and Plan (1) Acute cholecystitis Current Visit: Yes Status: Suspected Pt. initially presented for fall on right side of chest d/t lightheadedness He has a hx of colon cx with liver metastasis s/p biliary stents. Patient was scheduled to undergo permanent stent exchange on Tuesday. RUQ U/S revealed gallbladder sludge/nonshadowing stones with negative Wagner sign. There is mild gallbladder wall thickening and trace pericholecystic/ perihepatic fluid. These findings may be reactive vs. acute cholecystitis clinically patient is not having any nausea or vomiting, and right upper quadrant pain may be due to his recent fall onto his right side. We do not recommend any surgical interventions at this time. Spoke with his oncologist this morning who recommended a consultation to G.I. Will follow along clinically. WBC 6.8 AST/ALT remains slightly elevated Alk Phos: 606 Total bili: 3.5 Clear liquids IVF antiemetics abx: ampicllin pain control GI/DVT prophylaxis (2) Colon cancer metastasized to liver Current Visit: Yes Status: Chronic Hx of Metastatic moderately differentiated adenocarcinoma of the sigmoid colon with liver lesions On FOLFOX panitumumab retreatment C1 05/07/16 Dr. Schultz is his oncologist (3) Fall Current Visit: Yes Status: Acute CT head negative right sided abdominal pain s/p fall Qualifiers: Encounter type: initial encounter Qualified Code(s): W19.XXXA - Unspecified fall, initial encounter Subjective Patient reports: still having pain, afebrile Narrative: Patient seen and examined. States abdominal pain still there but decreased. Most notably in the epigastric and right upper quadrant. He did recently have a fall and the right side of his abdomen is tender and sore from the fall. He denies any nausea or vomiting. Objective Vital Signs - Last 8 Hours Temp Pulse Resp BP Pulse Ox 07/25/16 11:39 98.6 F 90 16 133/67 97 07/25/16 06:44 98.1 F 83 18 133/80 95 Intake and Output 07/24/16 07/25/16 07/25/16 23:59 07:59 15:59 Intake Total 0 / 0 1200 / 1200 1000 / 1000 Output Total 0 / 0 225 / 225 0 / 0 Balance 0 / 0 975 / 975 1000 / 1000 Intake: IV Fluids 1200 / 1200 0.9 % Sodium Chloride 1, 1000 / 1000 000 ML @ 100 mls/hr IVC . Q10H JOSELYN Rx#:[id number] Unasyn 3,000 MG In 0.9 % 200 / 200 Sodium Chloride (Mini-Bag +) 100 ML @ 200 mls/hr IVPB Q6HR JOSELYN Rx#: [id number] Oral 0 / 0 0 / 0 1000 / 1000 Output: Urine 0 / 0 225 / 225 0 / 0 Stool 0 / 0 Other: Meal NPO NPO Percent of Meal Consumed 0% Weight 48.9 kg Blood Glucose* 79 Patient Weight 07/25/16 23:59 Weight 48.9 kg - Additional Exam - General physical appearance no distress, cachectic, chronically ill - Eyes icteric - Neck trachea midline - Respiratory negative: clear to auscultation wheezing: bilateral - Cardiovascular Cardiovascular exam: Present: RRR, no murmurs/rubs/gallops - Abdomen Abdomen general surgery: Present: bowel sounds present, tender, voluntary guarding Absent: rebound Abdominal Tenderness: Present: RUQ - Integumentary Integumentary general surgery: Present: warm and dry - Neurologic Present: CN 2-12 grossly intact, normal sensation - Psychiatric Psychiatric general surgery: Present: A&Ox3 - Labs 07/26/16 05:20 07/26/16 05:20 Diabetes panel 07/25/16 Range/Units 06:15 Sodium 138 (136-145) mEq/L Potassium 3.5 (3.5-4.5) mEq/L Chloride 103 (98-109) mEq/L Carbon Dioxide 28 (19-29) mEq/L BUN 14 (8-26) mg/dL Creatinine 0.83 (0.72-1.25) mg/dL Glucose 75 (70-99) mg/dL Calcium 8.0 L (8.6-10.8) mg/dL AST 77 H (5-34) Units/L ALT 76 H (0-55) Units/L Alkaline Phosphatase 606 H (38-126) Units/L Albumin 1.5 L (3.5-5.0) g/dL Calcium panel 07/25/16 Range/Units 06:15 Calcium 8.0 L (8.6-10.8) mg/dL Albumin 1.5 L (3.5-5.0) g/dL Pituitary panel 07/25/16 Range/Units 06:15 Sodium 138 (136-145) mEq/L Potassium 3.5 (3.5-4.5) mEq/L Chloride 103 (98-109) mEq/L Carbon Dioxide 28 (19-29) mEq/L BUN 14 (8-26) mg/dL Creatinine 0.83 (0.72-1.25) mg/dL Glucose 75 (70-99) mg/dL Calcium 8.0 L (8.6-10.8) mg/dL Adrenal panel 07/25/16 Range/Units 06:15 Sodium 138 (136-145) mEq/L Potassium 3.5 (3.5-4.5) mEq/L Chloride 103 (98-109) mEq/L Carbon Dioxide 28 (19-29) mEq/L BUN 14 (8-26) mg/dL Creatinine 0.83 (0.72-1.25) mg/dL Glucose 75 (70-99) mg/dL Calcium 8.0 L (8.6-10.8) mg/dL Total Bilirubin 3.5 H (0.2-1.2) mg/dL AST 77 H (5-34) Units/L ALT 76 H (0-55) Units/L Alkaline Phosphatase 606 H (38-126) Units/L Albumin 1.5 L (3.5-5.0) g/dL - VTE Documentation of Mechanical Device: Graduated compression elastic hosiery Consult Discharge Plan - Plan Referrals: Mady Aparicio MD [Primary Care Provider] - - Attending Attestation I examined this patient and my medical decision-making was reviewed with the CT MANAGER/PA/Advanced Practice Nurse/Resident Physician. I agree with the documented findings, disposition and treatment plan as described except to the extent set forth below. The patient is seen with the resident on morning rounds. his white blood cell count is normal. I believe that the inflammation around his gallbladder may be related to his biliary stent, metastatic disease, trauma. clinically he does not appear to have acute cholecystitis. Isra Ruiz MD FACS
--- NOTE | 2016-07-25 18:23 | Internal Med Progress Note ---
Date of Encounter: 07/25/16 Time of Encounter: 10:30 - Assessment and plan (1) Fall Current Visit: Yes Status: Acute Assessment and plan: Patient presented to alleviate because of generalized weakness by a Alexander causing him bilateral rib pain. CT head was negative for any acute process. CT of the chest showed slight increase in size of lymph node. Mild emphysema. Continue pain control with morphine. Qualifiers: Encounter type: initial encounter Qualified Code(s): W19.XXXA - Unspecified fall, initial encounter (2) RUQ abdominal pain Current Visit: Yes Status: Acute Assessment and plan: could be secondary to recent fall, biliary tract obstruction due to malignancy vs cholecystitis. Right upper quadrant ultrasound showed gallbladder sludge/non-shadowing stones with negative Wagner sign. There is mild gallbladder wall thickening, trace pericholecystic/perihepatic fluid. CT abdomen and pelvis revealed gallbladder distention and wall thickening with possible pericholecystic fluid, biliary stents present, intrahepatic biliary ductal dilation, right hepatic lobe mass increased in size, small volume ascites , central hepatic mass. Total bilirubin is trending up to 3.5. Appreciate surgical sevice input. Dr. Carbone consulted for possible ERCP. Continue Unasyn, IV fluids, pain control with morphine (received 10 mg morphine so far), PPI twice a day. (3) Obstructive jaundice due to malignant neoplasm Current Visit: Yes Status: Acute Assessment and plan: Patient diagnosed with hyperbilirubinemia up to 10 in March 2016. He underwent ERCP showing a mass in his common bile duct and had stent placed. repeat bilirrubin in June was normal. Dr. Carbone consulted. As above. (4) Gallbladder disease Current Visit: Yes Status: Acute Assessment and plan: Plan as above. (5) Lactic acidosis Current Visit: Yes Status: Acute Assessment and plan: Secondary to liver metastases. Close monitor. (6) Anemia Current Visit: Yes Status: Chronic Assessment and plan: Chronic. close monitor. No bleeding. Qualifiers: Anemia type: other cause Other causes of anemia: chronic disease, neoplastic Qualified Code(s): D63.0 - Anemia in neoplastic disease (7) Colon cancer metastasized to liver Current Visit: Yes Status: Chronic Assessment and plan: Oncology service is following. Continue pain control with morphine. (8) COPD (chronic obstructive pulmonary disease) Current Visit: No Status: Chronic Assessment and plan: Continue albuterol Atrovent nebs. No active exacerbation. Qualifiers: COPD type: emphysema Emphysema type: centrilobular Qualified Code(s): J43.2 - Centrilobular emphysema - Subjective Interval history: Patient reports right upper quadrant abdominal pain that is mildly better compared to admission. No nausea. No vomiting. - Constitutional Vitals: Temp Pulse Resp BP Pulse Ox 98.6 F 75 16 132/97 97 07/25/16 15:05 07/25/16 15:05 07/25/16 15:05 07/25/16 15:05 07/25/16 15:05 General appearance: Present: cooperative, mild distress, A&O X 3, answers questions appropriately - Eye Eye exam: Present: PERRL, scleral icterus - Neck Neck exam general surgery: Present: supple, trachea midline. Absent: lymphadenopathy - Respiratory Respiratory exam: Present: CTAB - Cardiovascular Cardiovascular exam: Present: RRR - GI/Abdominal GI/Abdominal exam: Present: soft, tenderness (RUQ). Absent: distended - Extremities Exam Extremities exam: Present: pedal edema - Back Exam Back exam: Absent: CVA tenderness (L), CVA tenderness (R) - Neurological Exam Neurological exam: Present: alert, oriented X3. Absent: facial droop, speech deficit - Skin Skin exam: Absent: normal color (jaundice) Internal Medicine: Result - Labs CBC & Chem 7: 07/25/16 06:00 07/25/16 06:15 Labs: Short CBC 07/25/16 Range/Units 06:00 WBC 6.8 (4.3-11.1) K/mcL Hgb 7.5 L (12.9-16.9) g/dL Hct 24.1 L (37.5-50.1) % Plt Count 185 (140-400) K/mcL Neutrophils # 3.8 (1.6-8.9) K/mcL BMP 07/25/16 06:15 Sodium 138 Potassium 3.5 Chloride 103 Carbon Dioxide 28 BUN 14 Creatinine 0.83 Glucose 75 Calcium 8.0 L Liver Function 07/25/16 Range/Units 06:15 Total Bilirubin 3.5 H (0.2-1.2) mg/dL AST 77 H (5-34) Units/L ALT 76 H (0-55) Units/L Alkaline Phosphatase 606 H (38-126) Units/L Albumin 1.5 L (3.5-5.0) g/dL - ABG Interpretation ABG results: PT/INR, D-dimer PT 11.7 Seconds (9.4-12.1) 07/24/16 11:34 - VTE Documentation of Mechanical Device: Graduated compression elastic hosiery Consult Discharge Plan - Plan Referrals: Mady Aparicio MD [Primary Care Provider] -
[2016-07-26] MEDS: *HR* Morphine 2 MG/ML SYRINGE IVP PRN ×5 (00:01→23:19)
[2016-07-26] MEDS: Ampicillin/Sulbactam 3,000 MG in 0.9 % Sodium Chloride Mini Bag 100 ML IVPB SCH ×4 (00:02→18:05)
[2016-07-26] MEDS: D5% in 0.9% NACL 1,000 ML IVC SCH (03:17)
[2016-07-26 05:33] LABS: Hematocrit 24.1 % (37.5-50.1); Hemoglobin 7.5 g/dL (12.9-16.9); Lymphocytes # 1.4 K/mcL (0.6-4.6); Mean Corpuscular HGB Conc 31.1 g/dL (31.6-35.5); Mean Corpuscular Hemoglobin 28.2 pg (28.0-33.3); Mean Corpuscular Volume 90.6 fL (83.0-100.0); Nucleated Red Blood Cells 0.3 /100 WBC (0); Platelet Count 200 K/mcL (140-400); Red Blood Count 2.66 M/mcL (4.19-5.50); Red Cell Distribution Width 16.2 % (11.5-14.5)
[2016-07-26 05:48] LABS: Alanine Aminotransferase 84 Units/L (0-55); Albumin/Globulin Ratio 0.3 (1.1-2.2); Alkaline Phosphatase 609 Units/L (38-126); Aspartate Amino Transferase 86 Units/L (5-34); BUN/Creatinine Ratio 13 (6-26); Bilirubin,Indirect 0.7 mg/dL (0.0-1.2); Blood Urea Nitrogen 11 mg/dL (8-26); Calcium 7.6 mg/dL (8.6-10.8); Carbon Dioxide 27 mEq/L (19-29); Chloride 103 mEq/L (98-109); Globulin 4.3 g/dL (2.4-3.5); Glucose 136 mg/dL (70-99); Magnesium 1.2 mg/dL (1.6-2.6); Osmolality,Calculated 283 (280-300); Phosphorous 1.9 mg/dL (2.3-4.7); Potassium 3.2 mEq/L (3.5-4.5); Sodium 136 mEq/L (136-145); Total Protein 5.7 g/dL (6.0-8.3); eGFR For African Americans > 60 (> 60); eGFR For Non-African Americans > 60 (> 60)
[2016-07-26 05:50] LABS: Albumin 1.4 g/dL (3.5-5.0); Bilirubin,Direct 3.2 mg/dL (0.0-0.5); Bilirubin,Total 3.9 mg/dL (0.2-1.2)
[2016-07-26] MEDS: Pantoprazole 40 MG VIAL IVP SCH (06:03)
[2016-07-26 06:36] LABS: Monocytes # 1.4 K/mcL (0.0-1.3); Platelet Estimate Normal (Normal)
[2016-07-26 06:37] LABS: Anisocytosis 1+ (Not Present)
--- NOTE | 2016-07-26 09:45 | General Surgery Progress Note ---
Date of Encounter: 07/26/16 Time of Encounter: 09:42 - Assessment and Plan (1) Acute cholecystitis Current Visit: Yes Status: Suspected Pt. initially presented for fall on right side of chest/abdomen d/t lightheadedness He has a hx of colon cx with liver metastasis s/p biliary stents. Patient was scheduled to undergo permanent stent exchange on Tuesday. RUQ U/S revealed gallbladder sludge/nonshadowing stones with negative Wagner sign. There is mild gallbladder wall thickening and trace pericholecystic/ perihepatic fluid. These findings may be reactive vs. acute cholecystitis clinically patient is not having any nausea or vomiting, and right upper quadrant pain may be due to his recent fall onto his right side. We do not recommend any surgical interventions at this time. Spoke with his oncologist this morning who recommended a consultation to [email or web address]. Will follow along clinically. 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 Schultz is his oncologist (3) Fall Current Visit: Yes Status: Acute CT head negative right sided abdominal pain s/p fall Qualifiers: Encounter type: initial encounter Qualified Code(s): W19.XXXA - Unspecified fall, initial encounter Subjective Patient reports: feels better, still having pain, pain is less, no bowel movement Narrative: Patient seen and examined. Still having right sided abdominal pain, but is decreased since admission. Not having a BM yet. Will advance to full liquids. Pt. is asking to go home. ONC/GI consulted. Objective Vital Signs - Last 8 Hours Temp Pulse Resp BP Pulse Ox 07/26/16 07:14 98.3 F 85 16 153/76 97 07/26/16 04:56 97.4 F L 79 16 156/85 97 Intake and Output 07/25/16 07/26/16 07/26/16 23:59 07:59 15:59 Intake Total 1100 / 1100 1100 / 1100 0 / 0 Output Total 100 / 100 200 / 200 0 / 0 Balance 1000 / 1000 900 / 900 0 / 0 Intake: IV Fluids 1100 / 1100 1100 / 1100 D5% And 0.9% Nacl 1000 Ml 1000 / 1000 1000 / 1000 1,000 ML @ 100 mls/hr IVC .Q10H JOSELYN Rx#: [id number] Unasyn 3,000 MG In 0.9 % 100 / 100 100 / 100 Sodium Chloride (Mini-Bag +) 100 ML @ 200 mls/hr IVPB Q6HR JOSELYN Rx#: [id number] Oral 0 / 0 0 / 0 0 / 0 Output: Urine 100 / 100 200 / 200 0 / 0 Stool 0 / 0 Other: # Voids 1 - Additional Exam - General physical appearance no distress, cachectic, chronically ill - Eyes icteric - Neck trachea midline - Respiratory negative: clear to auscultation wheezing: bilateral - Cardiovascular Cardiovascular exam: Present: RRR, no murmurs/rubs/gallops - Abdomen Abdomen general surgery: Present: bowel sounds present, tender, voluntary guarding Absent: rebound Abdominal Tenderness: Present: RUQ - Integumentary Integumentary general surgery: Present: warm and dry - Neurologic Present: CN 2-12 grossly intact, normal sensation - Psychiatric Psychiatric general surgery: Present: A&Ox3 - Labs 07/26/16 05:20 07/26/16 05:20 Diabetes panel 07/26/16 Range/Units 05:20 Sodium 136 (136-145) mEq/L Potassium 3.2 L (3.5-4.5) mEq/L Chloride 103 (98-109) mEq/L Carbon Dioxide 27 (19-29) mEq/L BUN 11 (8-26) mg/dL Creatinine 0.85 (0.72-1.25) mg/dL Glucose 136 H (70-99) mg/dL Calcium 7.6 L (8.6-10.8) mg/dL AST 86 H (5-34) Units/L ALT 84 H (0-55) Units/L Alkaline Phosphatase 609 H (38-126) Units/L Albumin 1.4 L (3.5-5.0) g/dL Calcium panel 07/26/16 Range/Units 05:20 Calcium 7.6 L (8.6-10.8) mg/dL Phosphorus 1.9 L (2.3-4.7) mg/dL Albumin 1.4 L (3.5-5.0) g/dL Pituitary panel 07/26/16 Range/Units 05:20 Sodium 136 (136-145) mEq/L Potassium 3.2 L (3.5-4.5) mEq/L Chloride 103 (98-109) mEq/L Carbon Dioxide 27 (19-29) mEq/L BUN 11 (8-26) mg/dL Creatinine 0.85 (0.72-1.25) mg/dL Glucose 136 H (70-99) mg/dL Calcium 7.6 L (8.6-10.8) mg/dL Adrenal panel 07/26/16 Range/Units 05:20 Sodium 136 (136-145) mEq/L Potassium 3.2 L (3.5-4.5) mEq/L Chloride 103 (98-109) mEq/L Carbon Dioxide 27 (19-29) mEq/L BUN 11 (8-26) mg/dL Creatinine 0.85 (0.72-1.25) mg/dL Glucose 136 H (70-99) mg/dL Calcium 7.6 L (8.6-10.8) mg/dL Total Bilirubin 3.9 H (0.2-1.2) mg/dL AST 86 H (5-34) Units/L ALT 84 H (0-55) Units/L Alkaline Phosphatase 609 H (38-126) Units/L Albumin 1.4 L (3.5-5.0) g/dL - VTE Documentation of Mechanical Device: Graduated compression elastic hosiery Consult Discharge Plan - Plan Referrals: Mady Aparicio MD [Primary Care Provider] - - Attending Attestation I examined this patient and my medical decision-making was reviewed with the HOTEL [employer] MOTEL CLEANING SUPERVISOR/PA/Advanced Practice Nurse/Resident Physician. I agree with the documented findings, disposition and treatment plan as described except to the extent set forth below. The patient is seen and evaluated on morning rounds with the resident. He continues to improve. A gastroenterology consultation is pending to evaluate the stent. I do not believe that he has clinical acute cholecystitis and I believe that the CAT scan findings are multi-factorial. I will continue to follow along and work with gastroenterology on the ERCP findings.
[2016-07-26] MEDS ORDERED: Potassium Phosphate 44 MEQ in 0.9 % Sodium Chloride 250 ML IVPB ONE (11:20)
[2016-07-26] MEDS ORDERED: Magnesium Sulfate 2 GM in D5% in Water 100 ML IVPB ONE (11:21)
--- NOTE | 2016-07-26 11:32 | Internal Med Progress Note ---
Date of Encounter: 07/26/16 Time of Encounter: 11:28 - Assessment and plan (1) Fall Current Visit: Yes Status: Acute Assessment and plan: Patient developed generalized weakness at home that cause him to fall and have bilateral rib pain. CT head was negative for any acute process. CT of the chest showed slight increase in size of lymph node. Mild emphysema. Patient had 4 mg of Morphine this morning so far. Continue pain control with morphine. Qualifiers: Encounter type: initial encounter Qualified Code(s): W19.XXXA - Unspecified fall, initial encounter (2) RUQ abdominal pain Current Visit: Yes Status: Acute Assessment and plan: could be secondary to recent fall, biliary tract obstruction due to malignancy vs cholecystitis. Right upper quadrant ultrasound showed gallbladder sludge/non-shadowing stones with negative Wagner sign. There is mild gallbladder wall thickening, trace pericholecystic/perihepatic fluid. CT abdomen and pelvis revealed gallbladder distention and wall thickening with possible pericholecystic fluid, biliary stents present, intrahepatic biliary ductal dilation, right hepatic lobe mass increased in size, small volume ascites , central hepatic mass. Total bilirubin is trending up to 3.9. Appreciate surgical sevice input. pt reports pain is better control with morphine but still unchanged. change IV fluids to NS at 75 ml/hr. full liquid fat free diet. Dr. Carbone consulted, Plan for ERCP tomorrow. Continue Unasyn, pain control with morphineand PPI daily. (3) Obstructive jaundice due to malignant neoplasm Current Visit: Yes Status: Acute Assessment and plan: Patient diagnosed with hyperbilirubinemia up to 10 in March 2016. He underwent ERCP showing a mass in his common bile duct and had stent placed. repeat bilirrubin in June was normal. plan as above (4) Gallbladder disease Current Visit: Yes Status: Acute Assessment and plan: could be acute cholecystitis. no surgical intervention at this time. Plan as above. (5) Lactic acidosis Current Visit: Yes Status: Acute Assessment and plan: resolved. Secondary to liver metastases and dehydration. Close monitor. (6) Anemia Current Visit: Yes Status: Chronic Assessment and plan: Chronic anemia. multifactorial from metastatic cancer. in july 09, hgb was 10. Now hgb is 7.5. No bleeding. close monitor. Qualifiers: Anemia type: other cause Other causes of anemia: chronic disease, neoplastic Qualified Code(s): D63.0 - Anemia in neoplastic disease (7) Colon cancer metastasized to liver Current Visit: Yes Status: Chronic Assessment and plan: Oncology service is following. Continue pain control with morphine. (8) COPD (chronic obstructive pulmonary disease) Current Visit: No Status: Chronic Assessment and plan: Continue albuterol Atrovent nebs. No active exacerbation. Qualifiers: COPD type: emphysema Emphysema type: centrilobular Qualified Code(s): J43.2 - Centrilobular emphysema - Subjective Interval history: Patient reports RUQ pain is unchanged but medications relieve his pain. - Constitutional Vitals: Temp Pulse Resp BP Pulse Ox 98.6 F 86 16 160/88 97 07/26/16 10:55 07/26/16 10:55 07/26/16 10:55 07/26/16 10:55 07/26/16 10:55 General appearance: Present: cooperative, A&O X 3, pleasant, no acute distress, answers questions appropriately - Eye Eye exam: Present: PERRL, scleral icterus - ENT ENT exam: Present: mucous membranes moist - Neck Neck exam general surgery: Present: supple, trachea midline. Absent: lymphadenopathy - Respiratory Respiratory exam: Present: rhonchi - Cardiovascular Cardiovascular exam: Present: RRR - GI/Abdominal GI/Abdominal exam: Present: normal bowel sounds, soft, tenderness (RUQ). Absent : distended - Extremities Exam Extremities exam: Present: pedal edema - Back Exam Back exam: Absent: CVA tenderness (L), CVA tenderness (R) - Neurological Exam Neurological exam: Present: alert, oriented X3. Absent: facial droop, speech deficit - Skin Skin exam: Absent: rash Internal Medicine: Result - Labs CBC & Chem 7: 07/26/16 05:20 07/26/16 05:20 Labs: Short CBC 07/26/16 Range/Units 05:20 WBC 7.8 (4.3-11.1) K/mcL Hgb 7.5 L (12.9-16.9) g/dL Hct 24.1 L (37.5-50.1) % Plt Count 200 (140-400) K/mcL Neutrophils # 5.0 (1.6-8.9) K/mcL BMP 07/26/16 05:20 Sodium 136 Potassium 3.2 L Chloride 103 Carbon Dioxide 27 BUN 11 Creatinine 0.85 Glucose 136 H Calcium 7.6 L Liver Function 07/26/16 Range/Units 05:20 Total Bilirubin 3.9 H (0.2-1.2) mg/dL Direct Bilirubin 3.2 H (0.0-0.5) mg/dL AST 86 H (5-34) Units/L ALT 84 H (0-55) Units/L Alkaline Phosphatase 609 H (38-126) Units/L Albumin 1.4 L (3.5-5.0) g/dL - ABG Interpretation ABG results: PT/INR, D-dimer PT 11.7 Seconds (9.4-12.1) 07/24/16 11:34 - VTE Documentation of Mechanical Device: Graduated compression elastic hosiery Consult Discharge Plan - Plan Referrals: Mady Aparicio MD [Primary Care Provider] -
--- NOTE | 2016-07-26 11:57 | Gastroenterology Consult Note ---
<MillerRussell monge Juan - Last Filed: 07/26/16 11:54> Date of Encounter: 07/26/16 Time of Encounter: 10:45 - Assessment and plan (1) Melena Current Visit: Yes Status: Acute Assessment and plan: Hgb in Jun 2015 was 13.6, on 05/07/16 Hgb was 13, then gradually went down to 8.4 on admission 07/24/16. (2) Colon cancer metastasized to liver Current Visit: Yes Status: Chronic Assessment and plan: Bili, AST, and ALT elevated. Plan for ERCP tomorrow with replacement of temporary stent with metal stent. NPO after midnight. (3) Acute cholecystitis Current Visit: Yes Status: Suspected Assessment and plan: Surgical team does not recommend surgery at this time. (4) Obstructive jaundice due to malignant neoplasm Current Visit: Yes Status: Acute Assessment and plan: Plan for ERCP tomorrow to possible replace temporary stent with metal stent. - Time Spent With Patient Total time spent is greater than 50% in coordination of care (as documented) at patient's floor/unit and/or counseling patient: GI History of Present Illness - Data of Consult Patient: known to practice within the last 3 years Consult date: 07/26/16 Requesting Physician: Batsheva Trent - Consult Narrative Reason for consult: biliary obstruction History of present illness: Mr. Izquierdo is a 70 year old male with PMHx of colon cancer with liver metastases, a previous ERCP with stent placement, COPD, and HTN who presented to the ED with c/o generalized weakness and a fall with bilateral rib pain with lightheadedness on standing or bending over. He denies nausea or diarrhea. He was seen by Dr. Carbone on 07/19/16 and the patient reported recent episode of melena , but denied and black stools at the time of office visit. RUQ U/S revealed gallbladder sludge/nonshadowing stones with negative Wagner sign. Previous ERCP in March showed the middle third of the main bile duct just above the take off of cystic duct was completely obstructed by a possible mass, an 8 mm sphincterotomy was performed. Dilation of the upper third of the main bile duct was successful. Sweeps done with 8.5 mm balloon and some sludge possible tissue like material was pulled from the bile duct. One temporary plastic stent was placed in the CBD. Concerned that plastic stent is clogged. Hgb in Jun 2015 was 13.6, on 05/07/16 Hgb was 13, then gradually went down to 8.4 on admission 07/24/16. This AM Hgb 7.5. Procedures: ERCP 03/24/2016 NSAIDs: None Anticoagulation: None Past Med Surg Social Fam HX - Past Medical History Medical history: cancer, COPD, hypertension Psychiatric history: depression - Past Surgical History Surgical History: cancer surgery, colectomy - Social History Smoking Status: Current every day smoker Smokeless Tobacco Status: No Alcohol use: occasionally Drug use: none - Gastrointestinal Gastrointestinal: Present: as per HPI - Constitutional Constitutional: as per HPI - EENT Eyes: as per HPI Ears: Present: as per HPI Nose, mouth and throat: Present: as per HPI - Cardiovascular Cardiovascular ROS: Present: as per HPI - Respiratory Respiratory IM: Present: as per HPI - Genitourinary Genitourinary: Absent: change in color, Urinary frequency - Neurological ROS Neurological GI: Present: as per HPI - Hematologic/Lymphatic Hematologic/Lymphatic pediatric: Present: as per HPI - Musculoskeletal Musculoskeletal ROS GI: Present: as per HPI - Integumentary Integumentary GI: Present: as per HPI - Psychiatric ROS Psychiatric GI: Present: as per HPI - Endocrine Endocrine IM: Present: as per HPI - Constitutional Vitals: Temp Pulse Resp BP Pulse Ox 98.6 F 86 16 160/88 97 07/26/16 10:55 07/26/16 10:55 07/26/16 10:55 07/26/16 10:55 07/26/16 10:55 General appearance: Present: cooperative, A&O X 3, no acute distress, answers questions appropriately - Head Head exam: Present: atraumatic, normocephalic - Eye Eye exam: Present: scleral icterus - ENT ENT exam: Present: mucous membranes moist - Neck Neck exam general surgery: Present: normal inspection, trachea midline - Respiratory Respiratory exam: Present: CTAB. Absent: rales, rhonchi - Cardiovascular Cardiovascular exam: Present: RRR, +S1, +S2 - GI/Abdominal GI/Abdominal exam: Present: guarding, soft, tenderness (RUQ), no peritoneal signs. Absent: distended, firm - Rectal Rectal exam: Present: deferred - Extremities Exam Extremities exam: Present: warm - Neurological Exam Neurological exam: Present: no focal deficits - Psychiatric Psychiatric exam: Present: normal affect, normal mood - Skin Skin exam: Present: dry, intact, warm. Absent: normal color (jaundiced) Additional comments: ecchymosis Results - Labs CBC & Chem 7: 07/26/16 05:20 07/26/16 05:20 Labs: Last Result Calcium 7.6 mg/dL (8.6-10.8) L 07/26/16 05:20 Troponin I 0.01 ng/mL (0-0.03) 07/24/16 11:34 C-Reactive Protein 109 mg/L (Less than 5) H 07/24/16 11:34 Entire Visit Hgb 7.5 g/dL (12.9-16.9) L 07/26/16 05:20 Hct 24.1 % (37.5-50.1) L 07/26/16 05:20 PT 11.7 Seconds (9.4-12.1) 07/24/16 11:34 Total Bilirubin 3.9 mg/dL (0.2-1.2) H 07/26/16 05:20 AST 86 Units/L (5-34) H 07/26/16 05:20 ALT 84 Units/L (0-55) H 07/26/16 05:20 Lipase 19 Units/L (8-78) 07/24/16 11:34 - ABG ABG results: PT/INR, D-dimer PT 11.7 Seconds (9.4-12.1) 07/24/16 11:34 Consult Discharge Plan - Plan Referrals: Mady Aparicio MD [Primary Care Provider] - <Marah Carbone - Last Filed: 07/26/16 20:30> Time of Encounter: 15:00 - Time Spent With Patient Total time spent is greater than 50% in coordination of care (as documented) at patient's floor/unit and/or counseling patient: GI History of Present Illness - Data of Consult Requesting Physician: Batsheva Trent - Consult Narrative History of present illness: Mr. Izquierdo is a 70 year old male - Constitutional Vitals: Temp Pulse Resp BP Pulse Ox 98.0 F 93 18 163/85 96 07/26/16 20:25 07/26/16 20:25 07/26/16 20:25 07/26/16 20:25 07/26/16 20:25 Results - Labs CBC & Chem 7: 07/26/16 05:20 07/26/16 05:20 Labs: Last Result Calcium 7.6 mg/dL (8.6-10.8) L 07/26/16 05:20 Troponin I 0.01 ng/mL (0-0.03) 07/24/16 11:34 C-Reactive Protein 109 mg/L (Less than 5) H 07/24/16 11:34 Entire Visit Hgb 7.5 g/dL (12.9-16.9) L 07/26/16 05:20 Hct 24.1 % (37.5-50.1) L 07/26/16 05:20 PT 11.7 Seconds (9.4-12.1) 07/24/16 11:34 Total Bilirubin 3.9 mg/dL (0.2-1.2) H 07/26/16 05:20 AST 86 Units/L (5-34) H 07/26/16 05:20 ALT 84 Units/L (0-55) H 07/26/16 05:20 Lipase 19 Units/L (8-78) 07/24/16 11:34 - ABG ABG results: PT/INR, D-dimer PT 11.7 Seconds (9.4-12.1) 07/24/16 11:34 - Attending Attestation I examined this patient and my medical decision-making was reviewed with the RELIGIOUS EDUCATION TEACHER/PA/Advanced Practice Nurse/Resident Physician. I agree with the documented findings, disposition and treatment plan as described except to the extent set forth below. Pt with poss obstruc of CBD plastic stent; For ERCP and metal stent placement in am
[2016-07-26] MEDS: 0.9 % Sodium Chloride 1,000 ML IVC SCH (17:44)
[2016-07-26] MEDS ORDERED: Magnesium Sulfate 1 GM in D5% in Water 100 ML IVPB ONE (18:00)
[2016-07-27] MEDS: Ampicillin/Sulbactam 3,000 MG in 0.9 % Sodium Chloride Mini Bag 100 ML IVPB SCH ×5 (00:10→23:38)
[2016-07-27] MEDS: *HR* Morphine 2 MG/ML SYRINGE IVP PRN ×2 (03:43→06:04)
[2016-07-27 04:03] LABS: Hematocrit 27.5 % (37.5-50.1); Hemoglobin 8.7 g/dL (12.9-16.9); Mean Corpuscular HGB Conc 31.6 g/dL (31.6-35.5); Mean Corpuscular Hemoglobin 28.7 pg (28.0-33.3); Mean Corpuscular Volume 90.8 fL (83.0-100.0); Mean Platelet Volume 10.1 fL (9.4-12.4); Nucleated Red Blood Cells 0.3 /100 WBC (0); Platelet Count 203 K/mcL (140-400); Red Blood Count 3.03 M/mcL (4.19-5.50)
[2016-07-27 04:16] LABS: INR 1.1; Prothrombin Time 12.3 Seconds (9.4-12.1)
[2016-07-27 04:19] LABS: Alanine Aminotransferase 92 Units/L (0-55); Albumin/Globulin Ratio 0.3 (1.1-2.2); Alkaline Phosphatase 695 Units/L (38-126); Aspartate Amino Transferase 81 Units/L (5-34); BUN/Creatinine Ratio 11 (6-26); Bilirubin,Indirect 1.1 mg/dL (0.0-1.2); Bilirubin,Total 5.7 mg/dL (0.2-1.2); Blood Urea Nitrogen 9 mg/dL (8-26); Calcium 7.7 mg/dL (8.6-10.8); Carbon Dioxide 26 mEq/L (19-29); Chloride 104 mEq/L (98-109); Globulin 4.9 g/dL (2.4-3.5); Glucose 100 mg/dL (70-99); Magnesium 1.9 mg/dL (1.6-2.6); Osmolality,Calculated 283 (280-300); Potassium 3.9 mEq/L (3.5-4.5); Sodium 137 mEq/L (136-145); Total Protein 6.4 g/dL (6.0-8.3); eGFR For African Americans > 60 (> 60); eGFR For Non-African Americans > 60 (> 60)
[2016-07-27 04:20] LABS: Albumin 1.5 g/dL (3.5-5.0); Bilirubin,Direct 4.6 mg/dL (0.0-0.5); Phosphorous 2.9 mg/dL (2.3-4.7)
[2016-07-27 04:44] LABS: Anisocytosis 2+ (Not Present); Basophils # 0.2 K/mcL (0.0-0.2); Lymphocytes # 3.6 K/mcL (0.6-4.6); Monocytes # 0.6 K/mcL (0.0-1.3); Neutrophils # 5.6 K/mcL (1.6-8.9); Platelet Estimate Normal (Normal); Reactive Lymphocytes Present (Not Present)
--- NOTE | 2016-07-27 07:18 | General Surgery Progress Note ---
Date of Encounter: 07/27/16 Time of Encounter: 06:55 - Assessment and Plan (1) Acute cholecystitis Current Visit: Yes Status: Suspected Pt. initially presented for fall on right side of chest/abdomen d/t lightheadedness He has a hx of colon cx with liver metastasis s/p biliary stents. Patient was scheduled to undergo permanent stent exchange on Tuesday. RUQ U/S revealed gallbladder sludge/nonshadowing stones with negative Wagner sign. There is mild gallbladder wall thickening and trace pericholecystic/ perihepatic fluid. These findings may be reactive vs. acute cholecystitis clinically patient is not having any nausea or vomiting, and right upper quadrant pain may be due to his recent fall onto his right side. We do not recommend any surgical interventions at this time. Spoke with his oncologist this morning who recommended a consultation to [facility]. Will follow along clinically. WBC 7.8 AST/ALT remains slightly elevated Alk Phos: 609 Total bili: 3.9, trending up Advance to full liquids IVF antiemetics abx: ampicllin pain control GI/DVT prophylaxis 07/27/2016 0718 The patient is just having a lot of pain today. He is not sure that he wants to undergo ERCP. I encouraged him to do so. I will increase his pain medicine. I will be glad to follow along with you. He does not clinically appear to have acute cholecystitis. His bilirubin is elevated. I think it is essential that he has ERCP today. 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 Schultz is his oncologist (3) Fall Current Visit: Yes Status: Acute CT head negative right sided abdominal pain s/p fall Qualifiers: Encounter type: initial encounter Qualified Code(s): W19.XXXA - Unspecified fall, initial encounter Subjective Narrative: The patient just had a miserable night and is complaining of back pain and left flank pain. He states that he is unsure if he will be able to undergo ERCP today. I have encouraged him to undergo ERCP to evaluate the stent and to see if there is filling into the gallbladder from the cholangiogram which were essentially rule out acute cholecystitis. We will arrange for him to have additional pain medicine today. We will continue to follow closely Objective Vital Signs - Last 8 Hours Temp Pulse Resp BP Pulse Ox 07/27/16 03:37 98.2 F 87 18 171/97 98 Intake and Output 07/26/16 07/26/16 07/27/16 15:59 23:59 07:59 Intake Total 340 / 340 240 / 240 100 / 100 Output Total 0 / 200 200 / 200 250 / 250 Balance 340 / 140 40 / 40 -150 / -150 Intake: IV Fluids 100 / 100 240 / 240 100 / 100 Unasyn 3,000 MG In 0.9 % 100 / 100 100 / 100 100 / 100 Sodium Chloride (Mini-Bag +) 100 ML @ 200 mls/hr IVPB Q6HR JOSELYN Rx#: [id number] Potassium Phosphate 44 140 / 140 MEQ In 0.9 % Sodium Chloride 250 ML @ 40 mls/ hr IVPB ONCE ONE Rx#: [id number] Oral 240 / 240 0 / 0 0 / 0 Output: Urine 0 / 200 200 / 200 250 / 250 Other: Meal Lunch Percent of Meal Consumed 50% Weight 48.9 kg Blood Glucose* 84 Patient Weight 07/27/16 23:59 Weight 48.9 kg - General physical appearance cachectic, chronically ill - Respiratory normal expansion, normal respiratory effort, clear to percussion, clear to auscultation - Cardiovascular Cardiovascular exam: Present: RRR, no murmurs/rubs/gallops - Abdomen Abdomen: Present: bowel sounds present, non tender (He does have pain with palpation but this seems to be abdominal wall and chest wall pain) - Psychiatric oriented to time, oriented to person, oriented to place, speech is normal, memory intact - Labs 07/27/16 Unknown 07/27/16 Unknown Diabetes panel 07/27/16 Range/Units Unknown Sodium 137 (136-145) mEq/L Potassium 3.9 (3.5-4.5) mEq/L Chloride 104 (98-109) mEq/L Carbon Dioxide 26 (19-29) mEq/L BUN 9 (8-26) mg/dL Creatinine 0.82 (0.72-1.25) mg/dL Glucose 100 H (70-99) mg/dL Calcium 7.7 L (8.6-10.8) mg/dL AST 81 H (5-34) Units/L ALT 92 H (0-55) Units/L Alkaline Phosphatase 695 H (38-126) Units/L Albumin 1.5 L (3.5-5.0) g/dL Calcium panel 07/27/16 Range/Units Unknown Calcium 7.7 L (8.6-10.8) mg/dL Phosphorus 2.9 D (2.3-4.7) mg/dL Albumin 1.5 L (3.5-5.0) g/dL Pituitary panel 07/27/16 Range/Units Unknown Sodium 137 (136-145) mEq/L Potassium 3.9 (3.5-4.5) mEq/L Chloride 104 (98-109) mEq/L Carbon Dioxide 26 (19-29) mEq/L BUN 9 (8-26) mg/dL Creatinine 0.82 (0.72-1.25) mg/dL Glucose 100 H (70-99) mg/dL Calcium 7.7 L (8.6-10.8) mg/dL Adrenal panel 07/27/16 Range/Units Unknown Sodium 137 (136-145) mEq/L Potassium 3.9 (3.5-4.5) mEq/L Chloride 104 (98-109) mEq/L Carbon Dioxide 26 (19-29) mEq/L BUN 9 (8-26) mg/dL Creatinine 0.82 (0.72-1.25) mg/dL Glucose 100 H (70-99) mg/dL Calcium 7.7 L (8.6-10.8) mg/dL Total Bilirubin 5.7 H (0.2-1.2) mg/dL AST 81 H (5-34) Units/L ALT 92 H (0-55) Units/L Alkaline Phosphatase 695 H (38-126) Units/L Albumin 1.5 L (3.5-5.0) g/dL - VTE Documentation of Mechanical Device: Graduated compression elastic hosiery Consult Discharge Plan - Plan Referrals: Mady Aparicio MD [Primary Care Provider] -
[2016-07-27] MEDS ORDERED: *HR* HYDROmorphone (PF) 1 MG/ML SYRINGE IVP PRN ×2 (07:19→11:26)
[2016-07-27] MEDS: Pantoprazole 40 MG VIAL IVP SCH (08:24)
[2016-07-27] MEDS: 0.9 % Sodium Chloride 1,000 ML IVC SCH ×2 (08:24→17:17)
[2016-07-27] MEDS ORDERED: *HR* Propofol 200 MG/20 ML VIAL IVP ONE (09:15)
[2016-07-27] MEDS ORDERED: *HR* Succinylcholine 200 MG/10 ML VIAL IVP ONE (09:15)
[2016-07-27] MEDS ORDERED: Lidocaine -MPF 2% 5 ML VIAL INFILT ONE (09:15)
[2016-07-27] MEDS ORDERED: Lidocaine -MPF 4% 5 ML AMPUL TP ONE (09:15)
[2016-07-27] MEDS ORDERED: Ondansetron 4 MG/2 ML VIAL IVP ONE (09:15)
--- NOTE | 2016-07-27 09:21 | Internal Med Progress Note ---
<Abiel Deutsch - Last Filed: 07/27/16 15:42> Date of Encounter: 07/27/16 Time of Encounter: 09:00 - Assessment and plan (1) Fall Current Visit: Yes Status: Acute Assessment and plan: Secondary to generalized weakness. Patient continues to have bilateral rib pain , improving. CXR was negative for any acute fractures. CT head was negative for any acute intracranial process. CT of the chest showed slight increase in size of lymph nodes. Mild emphysema. Imaging workup was negative for fracture or other acute process. Pain management. Qualifiers: Encounter type: initial encounter Qualified Code(s): W19.XXXA - Unspecified fall, initial encounter (2) RUQ abdominal pain Current Visit: Yes Status: Acute Assessment and plan: May be secondary to biliary tract obstruction from malignancy vs cholecystitis vs recent fall. Right upper quadrant ultrasound showed gallbladder sludge/non-shadowing stones with negative Wagner sign. There is mild gallbladder wall thickening, trace pericholecystic/perihepatic fluid. CT abdomen and pelvis revealed gallbladder distention and wall thickening with possible pericholecystic fluid, biliary stents present, intrahepatic biliary ductal dilation, right hepatic lobe mass increased in size, small volume ascites , central hepatic mass. Total bilirubin is trending up to 5.7, yesterday 3.9. ERCP stent placed per Dr. Carbone, overt pus noted. Will continue Unasyn and pain management. (3) Obstructive jaundice due to malignant neoplasm Current Visit: Yes Status: Acute Assessment and plan: Patient diagnosed with hyperbilirubinemia up to 10 in March 2016. He underwent ERCP showing a mass in his common bile duct and had temporary stent placed. Repeat bilirubin in June was normal. ERCP with stent placement, over pus noted per Dr. Carbone. (4) Acute cholangitis Current Visit: Yes Status: Acute Assessment and plan: 07/27: ERCP with stent placement, overt pus noted per Dr. Carbone. 07/24: negative blood cultures 06/10. urine culture negative. continue Unasyn. if pt tolerated full liquid diet, may discharge on oral antibiotics tomorrow. (5) Gallbladder disease Current Visit: Yes Status: Acute Assessment and plan: Based on ultrasound and CT imaging, may be acute cholecystitis. Surgery note reviewed, no surgery recommended at this time. (6) Anemia Current Visit: Yes Status: Chronic Assessment and plan: Chronic anemia. Multifactorial from metastatic cancer. Hb 8.7, increased from 7.5 yesterday. Continue to monitor. Qualifiers: Anemia type: other cause Other causes of anemia: chronic disease, neoplastic Qualified Code(s): D63.0 - Anemia in neoplastic disease (7) Colon cancer metastasized to liver Current Visit: Yes Status: Chronic Assessment and plan: Oncology note reviewed. Continue pain management. (8) COPD (chronic obstructive pulmonary disease) Current Visit: No Status: Chronic Assessment and plan: Continue Albuterol and Atrovent nebs. No active exacerbation. Qualifiers: COPD type: emphysema Emphysema type: centrilobular Qualified Code(s): J43.2 - Centrilobular emphysema (9) DVT prophylaxis Current Visit: Yes Status: Acute Assessment and plan: IPCD for dvt ppx. - Subjective Interval history: Hospital Day 3 for patient with history of colon cancer and liver metastasis, HTN, COPD who was admitted for generalized weakness and a fall. Patient was resting in bed comfortably sleeping upon entering the room. Patient states that he had a lot of back pain and flank pain last night but currently his pain is well controlled. He states that he has no new complaints and is awaiting his ERCP with Dr. Carbone this afternoon. Patient is still jaundiced and his bilirubin was elevated from 3.9 yesterday to 5.7 today. He denies fever, chills , sweats, nausea, vomting, headaches, chest pain, cough, shortness of breath, bowel movement, dysuria, weakness, or loss of sensation. - Constitutional Vitals: Temp Pulse Resp BP Pulse Ox 98.4 F 102 18 122/64 93 L 07/27/16 08:15 07/27/16 08:15 07/27/16 08:15 07/27/16 08:15 07/27/16 08:15 General appearance: Present: cachectic, cooperative, A&O X 3, pleasant, no acute distress, answers questions appropriately - Head Head exam: Present: atraumatic, normal inspection, normocephalic - Eye Eye exam: Present: EOMI, PERRL, scleral icterus - ENT ENT exam: Present: mucous membranes moist, normal exam, normal external ear exam , normal oropharynx - Neck Neck exam general surgery: Present: normal inspection, supple, trachea midline. Absent: lymphadenopathy - Respiratory Respiratory exam: Present: rhonchi (mild rhonchi bilaterally). Absent: rales, respiratory distress, stridor, wheezes - Cardiovascular Cardiovascular exam: Present: RRR, +S1, +S2. Absent: diastolic murmur, gallop, rubs, systolic murmur Additional comments: Right upper chest port noted. - GI/Abdominal GI/Abdominal exam: Present: normal bowel sounds, soft. Absent: distended, firm , guarding, tenderness Additional comments: Colostomy clean dry intact, no stool or gas noted. - Extremities Exam Extremities exam: Present: pedal edema (2+ pitting edema), warm. Absent: calf tenderness, tenderness - Back Exam Back exam: Present: normal inspection. Absent: rash noted - Neurological Exam Neurological exam: Present: alert, oriented X3, no focal deficits, strengths equal and symetr throughout. Absent: facial droop, speech deficit - Psychiatric Psychiatric exam: Present: normal affect, normal mood - Skin Skin exam: Present: dry, intact, normal color, warm. Absent: diaphoretic, erythema, pallor Internal Medicine: Result - Labs CBC & Chem 7: 07/27/16 Unknown 07/27/16 Unknown Labs: Short CBC 07/27/16 Range/Units Unknown WBC 10.0 (4.3-11.1) K/mcL Hgb 8.7 L (12.9-16.9) g/dL Hct 27.5 L (37.5-50.1) % Plt Count 203 (140-400) K/mcL Neutrophils # 5.6 (1.6-8.9) K/mcL BMP 07/27/16 Unknown Sodium 137 Potassium 3.9 Chloride 104 Carbon Dioxide 26 BUN 9 Creatinine 0.82 Glucose 100 H Calcium 7.7 L Liver Function 07/27/16 Range/Units Unknown Total Bilirubin 5.7 H (0.2-1.2) mg/dL Direct Bilirubin 4.6 H D (0.0-0.5) mg/dL AST 81 H (5-34) Units/L ALT 92 H (0-55) Units/L Alkaline Phosphatase 695 H (38-126) Units/L Albumin 1.5 L (3.5-5.0) g/dL - ABG Interpretation ABG results: PT/INR, D-dimer PT 12.3 Seconds (9.4-12.1) H 07/27/16 Unknown - VTE Documentation of Mechanical Device: Graduated compression elastic hosiery Consult Discharge Plan - Plan Referrals: Mady Aparicio MD [Primary Care Provider] - 08/06/16 10:20 am <Batsheva Trent E - Last Filed: 07/27/16 18:09> - Assessment and plan (1) Fall Current Visit: Yes Status: Acute Qualifiers: Encounter type: initial encounter Qualified Code(s): W19.XXXA - Unspecified fall, initial encounter (2) RUQ abdominal pain Current Visit: Yes Status: Acute (3) Obstructive jaundice due to malignant neoplasm Current Visit: Yes Status: Acute (4) Gallbladder disease Current Visit: Yes Status: Acute (5) Lactic acidosis Current Visit: Yes Status: Acute (6) Anemia Current Visit: Yes Status: Chronic Qualifiers: Anemia type: other cause Other causes of anemia: chronic disease, neoplastic Qualified Code(s): D63.0 - Anemia in neoplastic disease (7) Colon cancer metastasized to liver Current Visit: Yes Status: Chronic (8) COPD (chronic obstructive pulmonary disease) Current Visit: No Status: Chronic Qualifiers: COPD type: emphysema Emphysema type: centrilobular Qualified Code(s): J43.2 - Centrilobular emphysema - Constitutional Vitals: Temp Pulse Resp BP Pulse Ox 97.9 F 73 18 137/76 97 07/27/16 17:43 07/27/16 17:43 07/27/16 17:43 07/27/16 17:43 07/27/16 17:43 Internal Medicine: Result - Labs CBC & Chem 7: 07/27/16 Unknown 07/27/16 Unknown Labs: Short CBC 07/27/16 07/27/16 Range/Units 16:27 Unknown WBC 13.8 H 10.0 (4.3-11.1) K/mcL Hgb 8.4 L 8.7 L (12.9-16.9) g/dL Hct 26.7 L 27.5 L (37.5-50.1) % Plt Count 191 203 (140-400) K/mcL Neutrophils # 11.3 H 5.6 (1.6-8.9) K/mcL BMP 07/27/16 07/27/16 16:27 Unknown Sodium 137 137 Potassium 4.4 3.9 Chloride 105 104 Carbon Dioxide 27 26 BUN 13 9 Creatinine 0.86 0.82 Glucose 111 H 100 H Calcium 8.1 L 7.7 L Liver Function 07/27/16 07/27/16 Range/Units 16:27 Unknown Total Bilirubin 6.6 H 5.7 H (0.2-1.2) mg/dL Direct Bilirubin 5.2 H 4.6 H D (0.0-0.5) mg/dL AST 69 H 81 H (5-34) Units/L ALT 82 H 92 H (0-55) Units/L Alkaline Phosphatase 631 H 695 H (38-126) Units/L Albumin 1.4 L 1.5 L (3.5-5.0) g/dL - ABG Interpretation ABG results: PT/INR, D-dimer PT 12.3 Seconds (9.4-12.1) H 07/27/16 Unknown - Impressions Impressions Cath/Invasive Procedure 07/27/16 00:00 IMPRESSION: Filling defects high within the common bile duct and suspected within the cystic duct is well. These changes may be related to the areas of soft tissue identified on the recent CT examination given patient's underlying hepatic malignancy. A metallic stent was placed. No biliary leak is identified. D/ / Radu Lipscomb MD / Radu Lipscomb MD Interpreting Provider: Radu Lipscomb MD - Attending Attestation I examined this patient and reviewed laboratory, imaging and all diagnostic data. My medical decision-making was reviewed with Dr Deutsch - Resident Physician. I agree with the documented findings, disposition and treatment plan as described above.
[2016-07-27] MEDS ORDERED: *HR* OxyCODONE Immed Rel 5 MG TABLET PO PRN (10:00)
--- NOTE | 2016-07-27 12:30 | Anesthesia Evaluation PreOp ---
Date of Encounter: 07/27/16 Time of Encounter: 12:27 - Past History Planned Operation: ERCP Cardiac History: HTN Pulmonary History: Smoker, COPD (O2 at night (hx empyema)) PARTICIPANT ADMINISTRATOR History: Denies Any Significant HX Other Medical History: Hepatic (Colon CA with liver mets), Other Anesthesia History: Past Anesthesia (Colectomy) Alcohol Use: occasionally Drug use: none Medications and Allergies Atenolol [Tenormin] 25 mg PO DAILY 03/12/16 [History] Lisinopril-HCTZ 20-12.5 [Prinzide 20-12.5] 1 tab PO DAILY 03/12/16 [History] Omeprazole [PriLOSEC] 40 mg PO DAILY 03/12/16 [History] Ondansetron [Zofran] 4 mg PO Q8HR PRN #90 tablet 04/07/16 [Rx] Prochlorperazine Maleate [Compazine] 10 mg PO Q8HR PRN #90 tablet 04/07/16 [Rx] OxyCODONE Immed Rel [Roxicodone 5 MG] 10 mg PO Q8HR PRN #90 tablet 07/02/16 [Rx] Alprazolam [Xanax 0.25 MG Tablet] 0.25 mg PO BID PRN #60 tablet 07/16/16 [Rx] Allergies sulfamethoxazole Allergy (Verified 07/24/16 15:57) Rash trimethoprim Allergy (Verified 07/24/16 15:57) Rash - Meds/Allergy Pre-op Review Medications Reviewed: Yes Allergies Reviewed: Yes Beta Blockers on Current Med List: Yes If Beta Blockers taken, Date/Time (Last Dose taken): will give metoprolol pre- induction Anesthesia Results - Labs 07/27/16 Unknown 07/27/16 Unknown - Imaging EKG: image reviewed (SR, RBMICHEAL) Anesthesia Exam O2 Sat Weight 48.9 kg O2 Sat by Pulse Oximetry 96 O2 Sat by Pulse Oximetry 93 O2 Sat by Pulse Oximetry 98 O2 Sat by Pulse Oximetry 94 O2 Sat by Pulse Oximetry 96 O2 Sat by Pulse Oximetry 92 Vital Signs Temp Pulse Resp BP Pulse Ox 98.5 F 109 18 125/69 98 07/24/16 11:16 07/24/16 11:16 07/24/16 11:16 07/24/16 11:16 07/24/16 11:16 Vital Signs/O2 Sat, Most Current Temp Pulse Resp BP Pulse Ox 98.1 F 90 18 139/84 96 07/27/16 11:28 07/27/16 11:28 07/27/16 11:28 07/27/16 11:28 07/27/16 11:28 Height: 5'8'' Weight: 107# NPO (# of Hours): > 8 hrs Pain Scale: 0 Pain Scale Used: Numeric (1 - 10) - HEENT Pupil (Motor): Pupils equal, EOMI Mallampati: II Teeth: Normal Oral Opening: Greater than 3 - PARTICIPANT ADMINISTRATOR LOC: Oriented PARTICIPANT ADMINISTRATOR Motor: Normal RUE, Normal LUE, Normal RLE, Normal LLE, Normal Face PARTICIPANT ADMINISTRATOR Sensory: Normal: RUE, LUE, RLE, LLE, Face - Cardiac Rhythm: Regular Murmur: None JVD: No Carotid Bruit: No - Pulmonary Breath Sounds: bilateral Clear Respiratory Effort: Symmetrical Anesthesia Assess/Plan ASA Score: 3 Modified Aldrich Scale for Level of Consciousness: Cooperative, oriented, and tranquil Anesthetic Plan: General Autologous Blood: Yes Monitoring Plan: Standard Monitors Recovery Plan: PACU
[2016-07-27] MEDS ORDERED: Indomethacin 50 MG SUPP.RECT RC ONE (12:49)
[2016-07-27] MEDS ORDERED: Ringers Solution, Lactated 1,000 ML IVC SCH (13:45)
--- NOTE | 2016-07-27 14:26 | Procedure Note ---
Date of procedure: 07/27/16 Pre-op diagnosis: Stent occlusion Procedure: ERCP: Metal stent placed him. Pus seen coming out of the major papilla Recommendation: IV antibiotics
[2016-07-27 16:41] LABS: Hematocrit 26.7 % (37.5-50.1); Hemoglobin 8.4 g/dL (12.9-16.9); Mean Corpuscular HGB Conc 31.5 g/dL (31.6-35.5); Mean Corpuscular Hemoglobin 28.6 pg (28.0-33.3); Mean Corpuscular Volume 90.8 fL (83.0-100.0); Mean Platelet Volume 10.3 fL (9.4-12.4); Platelet Count 191 K/mcL (140-400); Red Blood Count 2.94 M/mcL (4.19-5.50); Red Cell Distribution Width 17.2 % (11.5-14.5)
[2016-07-27 16:58] LABS: Eosinophils # 0.1 K/mcL (0.0-0.6); Lymphocytes # 1.8 K/mcL (0.6-4.6); Monocytes # 0.6 K/mcL (0.0-1.3); Neutrophils # 11.3 K/mcL (1.6-8.9); Platelet Estimate Normal (Normal); Polychromasia 1+ (Not Present)
[2016-07-27 16:59] LABS: Alanine Aminotransferase 82 Units/L (0-55); Albumin/Globulin Ratio 0.3 (1.1-2.2); Alkaline Phosphatase 631 Units/L (38-126); Anisocytosis 1+ (Not Present); Aspartate Amino Transferase 69 Units/L (5-34); BUN/Creatinine Ratio 15 (6-26); Bilirubin,Direct 5.2 mg/dL (0.0-0.5); Bilirubin,Indirect 1.4 mg/dL (0.0-1.2); Blood Urea Nitrogen 13 mg/dL (8-26); Calcium 8.1 mg/dL (8.6-10.8); Carbon Dioxide 27 mEq/L (19-29); Chloride 105 mEq/L (98-109); Globulin 4.4 g/dL (2.4-3.5); Glucose 111 mg/dL (70-99); Osmolality,Calculated 285 (280-300); Potassium 4.4 mEq/L (3.5-4.5); Sodium 137 mEq/L (136-145); Total Protein 5.8 g/dL (6.0-8.3); eGFR For African Americans > 60 (> 60); eGFR For Non-African Americans > 60 (> 60)
[2016-07-27 17:00] LABS: Albumin 1.4 g/dL (3.5-5.0)
[2016-07-27 17:01] LABS: Bilirubin,Total 6.6 mg/dL (0.2-1.2)
[2016-07-28] MEDS: 0.9 % Sodium Chloride 1,000 ML IVC SCH (04:17)
[2016-07-28 04:36] LABS: Hematocrit 23.4 % (37.5-50.1); Hemoglobin 7.4 g/dL (12.9-16.9); Mean Corpuscular HGB Conc 31.6 g/dL (31.6-35.5); Mean Corpuscular Hemoglobin 29.1 pg (28.0-33.3); Mean Corpuscular Volume 92.1 fL (83.0-100.0); Mean Platelet Volume 10.7 fL (9.4-12.4); Platelet Count 157 K/mcL (140-400); Red Blood Count 2.54 M/mcL (4.19-5.50); Red Cell Distribution Width 17.2 % (11.5-14.5)
[2016-07-28 04:47] LABS: Alanine Aminotransferase 65 Units/L (0-55); Albumin/Globulin Ratio 0.3 (1.1-2.2); Alkaline Phosphatase 565 Units/L (38-126); Aspartate Amino Transferase 51 Units/L (5-34); BUN/Creatinine Ratio 18 (6-26); Bilirubin,Direct 4.4 mg/dL (0.0-0.5); Bilirubin,Indirect 0.9 mg/dL (0.0-1.2); Bilirubin,Total 5.3 mg/dL (0.2-1.2); Blood Urea Nitrogen 18 mg/dL (8-26); Calcium 7.5 mg/dL (8.6-10.8); Carbon Dioxide 26 mEq/L (19-29); Chloride 106 mEq/L (98-109); Globulin 4.4 g/dL (2.4-3.5); Glucose 157 mg/dL (70-99); Magnesium 1.6 mg/dL (1.6-2.6); Osmolality,Calculated 289 (280-300); Total Protein 5.6 g/dL (6.0-8.3); eGFR For African Americans > 60 (> 60); eGFR For Non-African Americans > 60 (> 60)
[2016-07-28 05:08] LABS: Albumin 1.2 g/dL (3.5-5.0); Sodium 137 mEq/L (136-145)
[2016-07-28 05:09] LABS: Lymphocytes # 1.9 K/mcL (0.6-4.6); Monocytes # 2.2 K/mcL (0.0-1.3); Polychromasia 1+ (Not Present); Reactive Lymphocytes Present (Not Present)
[2016-07-28 05:10] LABS: Anisocytosis 1+ (Not Present); Platelet Estimate Normal (Normal); Toxic Granulation Present (Not Present)
[2016-07-28] MEDS: Ampicillin/Sulbactam 3,000 MG in 0.9 % Sodium Chloride Mini Bag 100 ML IVPB SCH ×2 (05:32→13:14)
[2016-07-28 08:11] VITALS: BP 138/78
--- NOTE | 2016-07-28 08:51 | Discharge Summary ---
<Abiel Deutsch - Last Filed: 07/28/16 11:16> Date of Encounter: 07/28/16 Time of Encounter: 08:30 - Discharge Diagnosis (1) Fall Priority: Primary Status: Acute Comments: Patient presented to the ED after a fall which was due to generalized weakness. CXR was negative for any acute fracture. CT head was negative for any acute intracranial process. CT of the chest showed slight increase in size of lymph nodes. Mild emphysema. Patient was complaining of bilateral rib pain but states that his pain continues to improve and did not require any pain medication last night. Qualifiers: Encounter type: initial encounter Qualified Code(s): W19.XXXA - Unspecified fall, initial encounter (2) RUQ abdominal pain Priority: Primary Status: Acute Comments: May be secondary to biliary tract obstruction from malignancy vs. cholecystitis vs. recent fall. Rt upper quadrant ultrasound showed gallbladder sludge/non- shadowing stones with negative Wagner sign. There is mild glallbladder wall thickening, trace pericholecystic fluid/perhepatic fluid. CT abdomen and pelvis revealed glaabladder distension and wall thickening with possible percholecystic fluid, biliary stents present, intraheptic biliary ductal dilation, right hepatic lobe mass increased in size, small volume ascites, central hepatic mass. Patient received an ERCP from Dr. Carbone yesterday and the temporary stent was replaced with a permanent stent. Dr. Cabrone indicated that pus was drained from the CBD but no culture was obtained. Total bili was at 5.3 this morning which is improved from 6.6 yesterday. Direct bili was 4.4 today, improved from 5.7 yesterday. Indirect bili was 0.9 today, improved from 1.4 yesterday. AST is 51 today, improved from 69 yesterday. ALT is 65 today, improved from 82 yesterday. Alk Phos is 565 today , improved from 631 yesterday. Patient appears to be less jaundiced this morning and skin color looks a lot better than yesterday. Patient has been receiving Unasyn and will be switched to PO antibiotics (3) Obstructive jaundice due to malignant neoplasm Priority: Primary Status: Acute Comments: Patient diagnosed with hyperbiliruibinemia up to 10 in March 2016. He underwent ERCP showing a mass in his CBD and had temporary stent placement. Repeat bilirubin in June was normal. Patient had ERCP done yesterday and bilirubin is improving. (4) Acute cholangitis Priority: Primary Status: Acute Comments: Patient has been afebrile during his hospital stay but the obstruction in his CBD likely led to cholangitis. Patient may be afebrile due to diagnosis of colon cancer with liver mets. Dr. Carbone stated in his ERCP procedure note that pus was drained from the CBD. Patient is jaundiced but color has improved from yesterday. Liver chemistries are all trending down after getting ERCP WBC is 12.1 today, improved from 13.8 yesterday. Patient is receiving Unasyn and will be switched to PO antibiotics. (5) Gallbladder disease Priority: Primary Status: Acute Comments: CT abdomen findings were concerning for acute cholecystitis due to gall bladder distension and wall thickening with possible pericholecsystic fluid. Surgery was consulted and determined that surgery was not needed at this time (6) Anemia Priority: Primary Status: Chronic Comments: Chronic anemia. Multifactorial form metastatic cancer Patient denies hematochezia and melena. Hgb was 8.4 upon initial presentation to the ED. This morning Hgb is 7.4 which is decreased from 8.4 yesterday. It is recommended that patient follows up with PCP and oncologist. Qualifiers: Anemia type: other cause Other causes of anemia: chronic disease, neoplastic Qualified Code(s): D63.0 - Anemia in neoplastic disease (7) Colon cancer metastasized to liver Priority: Primary Status: Chronic Comments: Oncology was consulted and examined the patient. (8) COPD (chronic obstructive pulmonary disease) Priority: Secondary Status: Chronic Comments: No acute exacerbation during this visit. Qualifiers: COPD type: emphysema Emphysema type: centrilobular Qualified Code(s): J43.2 - Centrilobular emphysema - Discharge Medications Prescriptions: Amoxicillin/Clavulanate [Augmentin] 875 mg PO TIDWM #18 tablet Home Medications: Atenolol [Tenormin] 25 mg PO DAILY 03/12/16 [History] Omeprazole [PriLOSEC] 40 mg PO DAILY 03/12/16 [History] Ondansetron [Zofran] 4 mg PO Q8HR PRN #90 tablet 04/07/16 [Rx] Prochlorperazine Maleate [Compazine] 10 mg PO Q8HR PRN #90 tablet 04/07/16 [Rx] Alprazolam [Xanax 0.25 MG Tablet] 0.25 mg PO BID PRN #60 tablet 07/16/16 [Rx] Amoxicillin/Clavulanate [Augmentin] 875 mg PO TIDWM #18 tablet 07/28/16 [Rx] OxyCODONE Immed Rel [Roxicodone 5 MG] 10 mg PO Q6HR PRN #90 tablet 07/28/16 [Rx] Allergies/Adverse Reactions: Allergies sulfamethoxazole Allergy (Verified 07/24/16 15:57) Rash trimethoprim Allergy (Verified 07/24/16 15:57) Rash Date of admission: 07/26/16 11:12 Primary care physician: Mady Aparicio MD Consults: General Surgery, GI, Oncology, PT/OT, Nutrition Discharging clinician: Batsheva Trent (Abiel Deutsch) Anticipated date of discharge: 07/28/16 - Patient Status Disposition: Home Health Service Condition: Fair Functional capacity at discharge: uses cane/walker Overall status at discharge: patient is not back to baseline - Discharge Instructions Follow Up With: Jefry Moe Jr, CNP [Advanced Practice Nurse] - 08/03/16 9:00 am Mady Aparicio MD [Primary Care Provider] - 08/06/16 10:20 am Additional Instructions: CHECK YOUR BLOOD PRESSURE TWICE DAILY LAB TEST WILL BE DONE THIS TUESDAY and TUESDAY AT HOME BY HOME HEALTH NURSE ([facility]) DISCUSS WITH YOUR FAMILY OR CANCER DOCTOR ABOUT "DO NOT RESUSCITATE STATUS". - Diet and Activity Activity: as per physical therapy Diet: other (soft, no fat diet) Interval History: Patient states that he is feeling pretty good today. Reports having a good nights sleep and not needing to ask for his pain meds over night. Patient does still admit to being a little tender around his ribcage from his fall. Patient denies any new or worsening symptoms. He denies head ache, fever, chest pain, SOB, N/V/D, bladder symptoms, calf tenderness. Patient tolerated liquid diet breakfast well. Hospital course: Mr. Izquierdo is a 70 year old male with a PMH of colon cancer with mets to the liver , COPD, HTN who presented to the ED on 07/24/2016 after a fall for generalized weakness. Patient stated that he did not lose consciousness and there was no seizure activity suspected. Patient has a history of falls due to low blood pressure and generalized weakness. His complaints were for anterior chest pain , bilateral rib pain, and mid-sternal pain. Head CT, Chest CT, Chest xray were all negative. Abdomen/Pelvis CT showed gallbladder distension and wall thickening with possible pericholecystic fluid concerning for acute cholecystitis. Abdominal US showed gallbladder sludge/non-shadowing stones with a negative sonographic wagner's sign. Unasyn was started. Patient was admitted due to generalized weakness as well as acute cholecystitis. Upon admission to the inpatient service, Oncology, Surgery and GI were consulted. Surgery recommended conservative treatment at this time with no surgery indicated during this hospital stay. GI had placed a temporary stent in the CBD back in March 2016 and patient was scheduled to have a permanent stent placed on Wednesday 08/02. During his stay, the patient became increasingly more jaundiced and his bilirubin levels steadily increased each day. Dr. Carbone recommended an ERCP to place the permanent stent and clear the blockage caused by the obstructing neoplasm. ERCP was performed successfully on 07/27 and the stent was placed. Dr. Carbone's note states that pus was drained from the CBD and he recommends continued antibiotic treatment. On 07/28 patient states that his pain is much better and did not ask for pain meds over night and was still able to get a good nights rest. All hepatic lab values improved after ERCP including total bilirubin that is 5.3, improved from 6.6. WBC is also improved to 12.1 today from 13.8 yesterday. Patients rib pain from his fall has improved each day and his been well controlled with IV morphine, dilauded, and oxycodone. Patient will be sent home with PRN PO medications for pain. On physical exam today patient appears less jaundiced and skin color is much better. Patient states that he was able to tolerate his breakfast well - Time Spent with Patient Total time spent providing and/or coordinating discharge services: Greater than 30 minutes - Constitutional Vitals: Temp Pulse Resp BP Pulse Ox 98.2 F 66 16 138/78 97 07/28/16 08:10 07/28/16 08:10 07/28/16 08:10 07/28/16 08:10 07/28/16 08:10 General appearance: Present: cachectic, cooperative, A&O X 3, pleasant, no acute distress, answers questions appropriately - Head Head exam: Present: atraumatic, normocephalic - Eye Eye exam: Present: EOMI, scleral icterus. Absent: periorbital swelling - ENT ENT exam: Present: mucous membranes moist, normal exam, normal external ear exam - Neck Neck exam general surgery: Present: supple, trachea midline. Absent: lymphadenopathy - Respiratory Respiratory exam: Present: rhonchi (mild bilaterally). Absent: rales, respiratory distress, stridor, wheezes - Cardiovascular Cardiovascular exam: Present: RRR, +S1, +S2. Absent: diastolic murmur, gallop, rubs, systolic murmur Additional comments: right upper chest port - GI/Abdominal GI/Abdominal exam: Present: normal bowel sounds, soft. Absent: distended, firm , guarding, tenderness Additional comments: colostomy - Extremities Exam Extremities exam: Present: pedal edema (2+ pitting edema), warm. Absent: calf tenderness, tenderness - Neurological Exam Neurological exam: Present: alert, oriented X3, no focal deficits. Absent: facial droop - Skin Skin exam: Present: dry, intact. Absent: diaphoretic, erythema Additional comments: mildly jaundiced. Skin color is much improved from yesterday - VTE Documentation of Mechanical Device: Graduated compression elastic hosiery <Batsheva Trent E - Last Filed: 07/28/16 17:37> - Discharge Diagnosis (1) Fall Status: Acute Qualifiers: Encounter type: initial encounter Qualified Code(s): W19.XXXA - Unspecified fall, initial encounter (2) RUQ abdominal pain Status: Acute (3) Obstructive jaundice due to malignant neoplasm Status: Acute (4) Gallbladder disease Status: Acute (5) Lactic acidosis Status: Acute (6) Anemia Status: Chronic Qualifiers: Anemia type: other cause Other causes of anemia: chronic disease, neoplastic Qualified Code(s): D63.0 - Anemia in neoplastic disease (7) Colon cancer metastasized to liver Status: Chronic (8) COPD (chronic obstructive pulmonary disease) Status: Chronic Qualifiers: COPD type: emphysema Emphysema type: centrilobular Qualified Code(s): J43.2 - Centrilobular emphysema Date of admission: 07/26/16 11:12 Primary care physician: Mady Aparicio MD Hospital course: Mr. Izquierdo is a 70 year old male - Time Spent with Patient Total time spent providing and/or coordinating discharge services: - Constitutional Vitals: Temp Pulse Resp BP Pulse Ox 98.2 F 66 16 138/78 97 07/28/16 08:10 07/28/16 08:10 07/28/16 08:10 07/28/16 08:10 07/28/16 08:10 - Attending Attestation I examined this patient and reviewed laboratory, imaging and all diagnostic data. My medical decision-making was reviewed with Dr Deutsch - Resident Physician. I agree with the documented findings, disposition and treatment plan as described above.
[2016-07-28] MEDS: Pantoprazole 40 MG VIAL IVP SCH (09:18)
--- NOTE | 2016-07-28 10:24 | Physician Discharge Referral ---
Home Health/Hosp Referral Info Transfer to: Home Health Attending Provider: Dr. Nabeel Mchugh Provider in Charge Post Discharge: PCP - Diagnosis (1) Fall Priority: Primary Status: Acute (2) RUQ abdominal pain Priority: Primary Status: Acute (3) Obstructive jaundice due to malignant neoplasm Priority: Primary Status: Acute (4) Acute cholangitis Priority: Primary Status: Acute (5) Gallbladder disease Priority: Primary Status: Acute (6) Anemia Priority: Primary Status: Chronic (7) Colon cancer metastasized to liver Priority: Primary Status: Chronic (8) COPD (chronic obstructive pulmonary disease) Priority: Secondary Status: Chronic - Respiratory Orders Smoking Cessation: Smoking cessation has been advised. For more information, call the [place] Tobacco Quit Line at 1-095-FQOX-NOW. - Diet/Nutrition Diet/Nutrition Orders: Mechanical Soft (no fat), No Added Salt (LEESA) - Activity Activity Orders: Walker - Services Needed Following services are medically necessary services: Home Health Aide, Physical Therapy Other Treatments: check blood pressure, currently holding lisinopril/hctz due to hypotensive levels in hospital; though received hydralazine prn. - Transfer Medications Prescriptions: Amoxicillin/Clavulanate [Augmentin] 875 mg PO TIDWM #18 tablet Home Medications: Atenolol [Tenormin] 25 mg PO DAILY 03/12/16 [History] Omeprazole [PriLOSEC] 40 mg PO DAILY 03/12/16 [History] Ondansetron [Zofran] 4 mg PO Q8HR PRN #90 tablet 04/07/16 [Rx] Prochlorperazine Maleate [Compazine] 10 mg PO Q8HR PRN #90 tablet 04/07/16 [Rx] Alprazolam [Xanax 0.25 MG Tablet] 0.25 mg PO BID PRN #60 tablet 07/16/16 [Rx] Amoxicillin/Clavulanate [Augmentin] 875 mg PO TIDWM #18 tablet 07/28/16 [Rx] OxyCODONE Immed Rel [Roxicodone 5 MG] 10 mg PO Q6HR PRN #90 tablet 07/28/16 [Rx] Allergies/Adverse Reactions: Allergies sulfamethoxazole Allergy (Verified 07/24/16 15:57) Rash trimethoprim Allergy (Verified 07/24/16 15:57) Rash Certification: Further, I certify that my clinical findings support that this patient is homebound (i.e. absences from home require considerable and taxing effort and are for medical reasons or catholic services or infrequently or short duration when for other reasons) because: Homebound Reason: Patient requires assistance of a person or device to safely leave home Attestation: My signature below is to certify that this patient is under my care and that I, or nurse practitioner, or a physician's post production assistant working with me, has a face-to -face encounter with this patient.
--- NOTE | 2016-07-28 11:46 | General Surgery Progress Note ---
Date of Encounter: 07/28/16 Time of Encounter: 11:44 - Assessment and Plan (1) Acute cholecystitis Status: Ruled-out Underwent ERCP yesterday w/ Dr. Carbone. Biliary stent changed. Pus seen coming out of major papilla. He does not have acute cholecystits, rather cholangitis. He does not require any surgical interventions at this time. Surgery will sign off. Thank you for allowing us to participate in the care of Mr. Izquierdo. Please call with any questions. 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 Schultz is his oncologist (3) Fall Status: Acute CT head negative right sided abdominal pain s/p fall Qualifiers: Encounter type: initial encounter Qualified Code(s): W19.XXXA - Unspecified fall, initial encounter Subjective Patient reports: feels better, tolerating liquids well Narrative: Patient seen and examined at bedside. Underwent ERCP yesterday w/ Dr. Carbone. Biliary stent was replaced. Pus noted during procedure. Continue abx. Objective Vital Signs - Last 8 Hours Temp Pulse Resp BP Pulse Ox 07/28/16 08:10 98.2 F 66 16 138/78 97 07/28/16 05:00 97.9 F 62 17 100/58 99 Intake and Output 07/27/16 07/28/16 07/28/16 23:59 07:59 15:59 Intake Total 781 / 781 419 / 419 580 / 580 Output Total 850 / 850 Balance 781 / 781 -431 / -431 580 / 580 Intake: IV Fluids 781 / 781 419 / 419 100 / 100 0.9 % Sodium Chloride 1, 681 / 681 319 / 319 000 ML @ 75 mls/hr IVC . [id number] JOSELYN Rx#: [id number] Unasyn 3,000 MG In 0.9 % 100 / 100 100 / 100 100 / 100 Sodium Chloride (Mini-Bag +) 100 ML @ 200 mls/hr IVPB Q6HR JOSELYN Rx#: [id number] Oral 480 / 480 Output: Urine 850 / 850 Other: Meal NPO Blood Glucose* 185 149 - Additional Exam - General physical appearance cachectic, chronically ill - Respiratory normal expansion, normal respiratory effort, clear to percussion, clear to auscultation - Cardiovascular Cardiovascular exam: Present: RRR, no murmurs/rubs/gallops - Abdomen Abdomen: Present: bowel sounds present, non tender (He does have pain with palpation but this seems to be abdominal wall and chest wall pain) - Psychiatric oriented to time, oriented to person, oriented to place, speech is normal, memory intact - Labs 07/28/16 04:00 07/28/16 04:00 Diabetes panel 07/27/16 07/28/16 Range/Units 16:27 04:00 Sodium 137 137 (136-145) mEq/L Potassium 4.4 4.0 (3.5-4.5) mEq/L Chloride 105 106 (98-109) mEq/L Carbon Dioxide 27 26 (19-29) mEq/L BUN 13 18 (8-26) mg/dL Creatinine 0.86 1.02 (0.72-1.25) mg/dL Glucose 111 H 157 H (70-99) mg/dL Calcium 8.1 L 7.5 L (8.6-10.8) mg/dL AST 69 H 51 H (5-34) Units/L ALT 82 H 65 H (0-55) Units/L Alkaline Phosphatase 631 H 565 H (38-126) Units/L Albumin 1.4 L 1.2 L (3.5-5.0) g/dL Calcium panel 07/27/16 07/28/16 Range/Units 16:27 04:00 Calcium 8.1 L 7.5 L (8.6-10.8) mg/dL Albumin 1.4 L 1.2 L (3.5-5.0) g/dL Pituitary panel 07/27/16 07/28/16 Range/Units 16:27 04:00 Sodium 137 137 (136-145) mEq/L Potassium 4.4 4.0 (3.5-4.5) mEq/L Chloride 105 106 (98-109) mEq/L Carbon Dioxide 27 26 (19-29) mEq/L BUN 13 18 (8-26) mg/dL Creatinine 0.86 1.02 (0.72-1.25) mg/dL Glucose 111 H 157 H (70-99) mg/dL Calcium 8.1 L 7.5 L (8.6-10.8) mg/dL Adrenal panel 07/27/16 07/28/16 Range/Units 16:27 04:00 Sodium 137 137 (136-145) mEq/L Potassium 4.4 4.0 (3.5-4.5) mEq/L Chloride 105 106 (98-109) mEq/L Carbon Dioxide 27 26 (19-29) mEq/L BUN 13 18 (8-26) mg/dL Creatinine 0.86 1.02 (0.72-1.25) mg/dL Glucose 111 H 157 H (70-99) mg/dL Calcium 8.1 L 7.5 L (8.6-10.8) mg/dL Total Bilirubin 6.6 H 5.3 H (0.2-1.2) mg/dL AST 69 H 51 H (5-34) Units/L ALT 82 H 65 H (0-55) Units/L Alkaline Phosphatase 631 H 565 H (38-126) Units/L Albumin 1.4 L 1.2 L (3.5-5.0) g/dL - VTE Documentation of Mechanical Device: Graduated compression elastic hosiery Consult Discharge Plan - Plan Additional Instructions: CHECK YOUR BLOOD PRESSURE TWICE DAILY LAB TEST WILL BE DONE THIS TUESDAY and TUESDAY AT HOME BY HOME HEALTH NURSE ([facility]FT) DISCUSS WITH YOUR FAMILY OR CANCER DOCTOR ABOUT "DO NOT RESUSCITATE STATUS". Referrals: Jefry Moe Jr, CNP [Advanced Practice Nurse] - 08/03/16 9:00 am Mady Aparicio MD [Primary Care Provider] - 08/06/16 10:20 am Prescriptions: Amoxicillin/Clavulanate [Augmentin] 875 mg PO TIDWM #18 tablet - Attending Attestation I examined this patient and my medical decision-making was reviewed with the NEON SIGN ERECTOR/PA/Advanced Practice Nurse/Resident Physician. I agree with the documented findings, disposition and treatment plan as described except to the extent set forth below. The patient is seen and evaluated with the resident on morning rounds I had a conversation with gastroenterology. ERCP cholangiogram demonstrated filling of the gallbladder which essentially rules out acute cholecystitis. The patient had possible common bile duct consistent with ascending cholangitis. A stent change in the common bile duct will relieve his pressure and he should improve clinically. Surgery will sign off at this point we are certainly available for repeat consultation should the clinical situation change. Isra Ruiz MD FACS
--- NOTE | 2016-07-28 12:03 | Gastroenterology Progress Note ---
Date of Encounter: 07/28/16 Time of Encounter: 10:40 - Assessment and plan (1) Melena Current Visit: Yes Status: Acute Assessment and plan: Hgb in Jun 2015 was 13.6, on 05/07/16 Hgb was 13, then gradually went down to 8.4 on admission 07/24/16. (2) Colon cancer metastasized to liver Current Visit: Yes Status: Chronic Assessment and plan: ERCP completed yesterday, metal stent placed, purulent drainage noted coming out of major papilla. TB improved to 5.3 from 6.6, AST 51 from 69, and ALT 65 from 82. Continue IV antibiotics. (3) Obstructive jaundice due to malignant neoplasm Current Visit: Yes Status: Acute Assessment and plan: ERCP completed yesterday, metal stent placed, purulent drainage noted coming out of major papilla. Labs improving, recommend continuing IV antibiotics. - Time Spent With Patient Total time spent is greater than 50% in coordination of care (as documented) at patient's floor/unit and/or counseling patient: - Subjective Interval history: Pt is without acute complaint at this time. ERCP completed yesterday, metal stent placed, purulent drainage noted coming out of major papilla. - Constitutional Vitals: Temp Pulse Resp BP Pulse Ox 98.2 F 66 16 138/78 97 07/28/16 08:10 07/28/16 08:10 07/28/16 08:10 07/28/16 08:10 07/28/16 08:10 General appearance: Present: cooperative, A&O X 3, no acute distress, answers questions appropriately - Head Head exam: Present: atraumatic, normocephalic - Eye Eye exam: Present: scleral icterus. Absent: normal appearance, sclera anicteric - ENT ENT exam: Present: mucous membranes dry - Neck Neck exam general surgery: Present: normal inspection, trachea midline - Respiratory Respiratory exam: Present: CTAB. Absent: rales, rhonchi - Cardiovascular Cardiovascular exam: Present: RRR, +S1, +S2 - GI/Abdominal GI/Abdominal exam: Present: soft, no peritoneal signs. Absent: distended, firm , guarding - Rectal Rectal exam: Present: deferred - Extremities Exam Extremities exam: Present: warm - Neurological Exam Neurological exam: Present: no focal deficits - Psychiatric Psychiatric exam: Present: normal affect, normal mood - Skin Skin exam: Present: dry, intact, normal color, warm Results - Labs CBC & Chem 7: 07/28/16 04:00 07/28/16 04:00 Labs: Last Result Calcium 7.5 mg/dL (8.6-10.8) L 07/28/16 04:00 Troponin I 0.01 ng/mL (0-0.03) 07/24/16 11:34 C-Reactive Protein 109 mg/L (Less than 5) H 07/24/16 11:34 Entire Visit Hgb 7.4 g/dL (12.9-16.9) L 07/28/16 04:00 Hct 23.4 % (37.5-50.1) L 07/28/16 04:00 PT 12.3 Seconds (9.4-12.1) H 07/27/16 Unknown Total Bilirubin 5.3 mg/dL (0.2-1.2) H 07/28/16 04:00 AST 51 Units/L (5-34) H 07/28/16 04:00 ALT 65 Units/L (0-55) H 07/28/16 04:00 Lipase 19 Units/L (8-78) 07/24/16 11:34 - ABG ABG results: PT/INR, D-dimer PT 12.3 Seconds (9.4-12.1) H 07/27/16 Unknown - Impressions Impressions Cath/Invasive Procedure 07/27/16 00:00 IMPRESSION: Filling defects high within the common bile duct and suspected within the cystic duct is well. These changes may be related to the areas of soft tissue identified on the recent CT examination given patient's underlying hepatic malignancy. A metallic stent was placed. No biliary leak is identified. D/ / Radu Lipscomb MD / Radu Lipscomb MD Interpreting Provider: Radu Lipscomb MD - VTE Documentation of Mechanical Device: Graduated compression elastic hosiery Consult Discharge Plan - Plan Additional Instructions: CHECK YOUR BLOOD PRESSURE TWICE DAILY LAB TEST WILL BE DONE THIS TUESDAY AT HOME BY HOME HEALTH NURSE DISCUSS WITH YOUR FAMILY OR CANCER DOCTOR ABOUT "DO NOT RESUSCITATE STATUS". Referrals: Mady Aparicio MD [Primary Care Provider] - 08/06/16 10:20 am Prescriptions: Amoxicillin/Clavulanate [Augmentin] 875 mg PO TIDWM #18 tablet
--- NOTE | 2016-07-28 14:31 | Oncology Inp Progress Note ---
Date of Encounter: 07/28/16 Time of Encounter: 12:00 (1) Colon cancer Status: Chronic Assessment and plan: stage IV with mets in the liver-admitted with hyperbilirubinemia leucocytosis, s /p ERCP stent placement. Purulent drianage with stent change. On IV abx. Bilirubin trend improving. Imaging CT abd 07/24/16 reviewed-discussed with family F/U in clinic upon discharge , on 08/03/16 to recheck labs. Image with Ct abd for f/u before chemotherapy. Patient nad family stated understanding of above plan Qualifiers: Colon location: unspecified part of colon Qualified Code(s): C18.9 - Malignant neoplasm of colon, unspecified Oncology: Subj Interval history: Feels well, denies abd pian. Swollen ext+ - Constitutional Vitals: Vital Signs Temp Pulse Resp BP Pulse Ox 07/28/16 08:10 98.2 F 66 16 138/78 97 07/28/16 05:00 97.9 F 62 17 100/58 99 07/28/16 01:53 98.4 F 82 16 134/77 96 07/27/16 23:40 97.7 F 73 18 147/83 07/27/16 20:28 98.2 F 73 18 134/75 97 07/27/16 17:43 97.9 F 73 18 137/76 97 07/27/16 15:36 97.5 F L 70 14 175/88 98 07/27/16 15:00 97.3 F L 71 14 196/98 98 07/27/16 14:49 70 18 171/89 98 07/27/16 14:39 70 18 171/89 100 07/27/16 14:29 73 18 167/91 100 Intake and Output 07/27/16 07/28/16 07/28/16 23:59 07:59 15:59 Intake Total 781 / 781 419 / 419 1207 / 1207 Output Total 850 / 850 Balance 781 / 781 -431 / -431 1207 / 1207 Intake: IV Fluids 781 / 781 419 / 419 727 / 727 0.9 % Sodium Chloride 1, 681 / 681 319 / 319 627 / 627 000 ML @ 75 mls/hr IVC . [id number] [facility] Rx#: [id number] Unasyn 3,000 MG In 0.9 % 100 / 100 100 / 100 100 / 100 Sodium Chloride (Mini-Bag +) 100 ML @ 200 mls/hr IVPB Q6HR [facility] Rx#: [id number] Oral 480 / 480 Output: Urine 850 / 850 Other: Meal NPO Blood Glucose* 185 149 General appearance: disheveled, thin - Head Head exam: Present: atraumatic - Eye Eye exam: Present: scleral icterus - ENT ENT exam: Present: mucous membranes moist - Respiratory Respiratory exam: Present: CTAB - Cardiovascular Cardiovascular exam: Present: +S1, +S2 - GI/Abdominal GI/Abdominal exam: Present: normal bowel sounds, soft - Extremities Exam Additional comments: upper ext edema, brusing, skin excoriation Davi - Neurological Exam Neurological exam: Present: alert, CN II-XII intact Oncology: Obj Data - Labs CBC & Chem 7: 07/28/16 04:00 07/28/16 04:00 Labs: Laboratory Results - last 24 hr 07/27/16 07/27/16 07/27/16 00:28 05:47 16:27 WBC 13.8 H RBC 2.94 L Hgb 8.4 L Hct 26.7 L MCV 90.8 MCH 28.6 MCHC 31.5 L RDW 17.2 H Plt Count 191 MPV 10.3 Seg Neutrophils % 78.0 Band Neutrophils % 4.0 Lymphocytes % 13.0 Monocytes % 4.0 Eosinophils % 1.0 Neutrophils # 11.3 H Lymphocytes # 1.8 Monocytes # 0.6 Eosinophils # 0.1 Reactive Lymphocytes Toxic Granulation Platelet Estimate Normal Polychromasia 1+ A Anisocytosis 1+ A Sodium Potassium Chloride Carbon Dioxide BUN Creatinine Est GFR ( Amer) Est GFR (Non-Af Amer) BUN/Creatinine Ratio Glucose POC Glucose 124 H 84 Calculated Osmolality Calcium Magnesium Total Bilirubin Direct Bilirubin Indirect Bilirubin AST ALT Alkaline Phosphatase Serum Total Protein Albumin Globulin Albumin/Globulin Ratio 07/27/16 07/28/16 07/28/16 16:27 01:56 04:00 WBC 12.1 H RBC 2.54 L Hgb 7.4 L Hct 23.4 L MCV 92.1 MCH 29.1 MCHC 31.6 RDW 17.2 H Plt Count 157 MPV 10.7 Seg Neutrophils % 64.0 Band Neutrophils % 2.0 Lymphocytes % 16.0 Monocytes % 18.0 Eosinophils % Neutrophils # 8.0 Lymphocytes # 1.9 Monocytes # 2.2 H Eosinophils # Reactive Lymphocytes Present A Toxic Granulation Present A Platelet Estimate Normal Polychromasia 1+ A Anisocytosis 1+ A Sodium 137 Potassium 4.4 Chloride 105 Carbon Dioxide 27 BUN 13 Creatinine 0.86 Est GFR ( Amer) > 60 Est GFR (Non-Af Amer) > 60 BUN/Creatinine Ratio 15 Glucose 111 H POC Glucose 185 H Calculated Osmolality 285 Calcium 8.1 L Magnesium Total Bilirubin 6.6 H Direct Bilirubin 5.2 H Indirect Bilirubin 1.4 H AST 69 H ALT 82 H Alkaline Phosphatase 631 H Serum Total Protein 5.8 L Albumin 1.4 L Globulin 4.4 H Albumin/Globulin Ratio 0.3 L 07/28/16 07/28/16 07/28/16 04:00 05:47 08:07 WBC RBC Hgb Hct MCV MCH MCHC RDW Plt Count MPV Seg Neutrophils % Band Neutrophils % Lymphocytes % Monocytes % Eosinophils % Neutrophils # Lymphocytes # Monocytes # Eosinophils # Reactive Lymphocytes Toxic Granulation Platelet Estimate Polychromasia Anisocytosis Sodium 137 Potassium 4.0 Chloride 106 Carbon Dioxide 26 BUN 18 Creatinine 1.02 Est GFR ( Amer) > 60 Est GFR (Non-Af Amer) > 60 BUN/Creatinine Ratio 18 Glucose 157 H POC Glucose 152 H 149 H Calculated Osmolality 289 Calcium 7.5 L Magnesium 1.6 Total Bilirubin 5.3 H Direct Bilirubin 4.4 H Indirect Bilirubin 0.9 AST 51 H ALT 65 H Alkaline Phosphatase 565 H Serum Total Protein 5.6 L Albumin 1.2 L Globulin 4.4 H Albumin/Globulin Ratio 0.3 L - Impressions Impressions Cath/Invasive Procedure 07/27/16 00:00 IMPRESSION: Filling defects high within the common bile duct and suspected within the cystic duct is well. These changes may be related to the areas of soft tissue identified on the recent CT examination given patient's underlying hepatic malignancy. A metallic stent was placed. No biliary leak is identified. D/ / Radu Lipscomb MD / Radu Lipscomb MD Interpreting Provider: Radu Lipscomb MD - ABG Interpretation ABG results: PT/INR, D-dimer PT 12.3 Seconds (9.4-12.1) H 07/27/16 Unknown Consult Discharge Plan - Plan Additional Instructions: CHECK YOUR BLOOD PRESSURE TWICE DAILY LAB TEST WILL BE DONE THIS TUESDAY and TUESDAY AT HOME BY HOME HEALTH NURSE (LFT) DISCUSS WITH YOUR FAMILY OR CANCER DOCTOR ABOUT "DO NOT RESUSCITATE STATUS". Referrals: Jefry Moe Jr, CNP [Advanced Practice Nurse] - 08/03/16 9:00 am Mady Aparicio MD [Primary Care Provider] - 08/06/16 10:20 am Prescriptions: Amoxicillin/Clavulanate [Augmentin] 875 mg PO TIDWM #18 tablet
== END 2016-07-28 13:58 | disposition home health service (06) | DRG 444 ==
LOC: EMEROO 11:11 → 3ANU 11:11 → SUATTDRO 16:37 → 3ANU 17:04
PROVIDERS: ADMIT Internal Medicine; ATTEND Internal Medicine

== ENCOUNTER 2016-08-24 10:17 | Inpatient (IN) ==
[2016-08-24] MEDS ORDERED: 0.9 % Sodium Chloride 500 ML IVC ONE (10:50)
[2016-08-24 11:12] LABS: Hematocrit 29.5 % (37.5-50.1); Hemoglobin 9.2 g/dL (12.9-16.9); Immature Granulocytes % 0.8 % (0-4); Lymphocytes # 0.3 K/mcL (0.6-4.6); Lymphocytes % 1.5 %; Mean Corpuscular HGB Conc 31.2 g/dL (31.6-35.5); Mean Corpuscular Hemoglobin 29.3 pg (28.0-33.3); Mean Corpuscular Volume 93.9 fL (83.0-100.0); Mean Platelet Volume 9.2 fL (9.4-12.4); Monocytes # 1.2 K/mcL (0.0-1.3); Monocytes % 5.3 %; Neutrophils # 21.1 K/mcL (1.6-8.9); Platelet Count 257 K/mcL (140-400); Red Blood Count 3.14 M/mcL (4.19-5.50); Red Cell Distribution Width 17.9 % (11.5-14.5); Segmented Neutrophils % 92.4 %
[2016-08-24 11:21] LABS: INR 1.2; Prothrombin Time 12.9 Seconds (9.4-12.1)
[2016-08-24 11:28] LABS: Alanine Aminotransferase 87 Units/L (0-55); Albumin/Globulin Ratio 0.3 (1.1-2.2); Alkaline Phosphatase 819 Units/L (38-126); Aspartate Amino Transferase 93 Units/L (5-34); BUN/Creatinine Ratio 16 (6-26); Blood Urea Nitrogen 13 mg/dL (8-26); Calcium 8.3 mg/dL (8.6-10.8); Carbon Dioxide 27 mEq/L (19-29); Chloride 99 mEq/L (98-109); Globulin 5.7 g/dL (2.4-3.5); Glucose 157 mg/dL (70-99); Lipase 29 Units/L (8-78); Osmolality,Calculated 279 (280-300); Potassium 3.4 mEq/L (3.5-4.5); Sodium 133 mEq/L (136-145); Total Protein 7.3 g/dL (6.0-8.3); eGFR For African Americans > 60 (> 60); eGFR For Non-African Americans > 60 (> 60)
[2016-08-24 11:29] LABS: Albumin 1.6 g/dL (3.5-5.0)
[2016-08-24 11:49] LABS: Platelet Estimate Normal (Normal)
[2016-08-24] MEDS ORDERED: *HR* Morphine 2 MG/ML SYRINGE IV ONE (12:27)
[2016-08-24] MEDS ORDERED: Ondansetron 4 MG/2 ML VIAL IVP ONE (12:27)
[2016-08-24] MEDS ORDERED: Meropenem 1,000 MG in 0.9 % Sodium Chloride Mini Bag 100 ML IVPB ONE (13:06)
--- NOTE | 2016-08-24 13:15 | Emergency Department Note ---
Disposition Clinical Impression: Colon cancer metastasized to liver, Obstructive jaundice due to malignant neoplasm Disposition: Admitted As Inpatient Condition: Good General Adult HPI - General Chief complaint: ED Recheck/Abnormal Lab/Rx Stated complaint: abnormal labs Time Seen by Provider: 08/24/16 10:38 Source: family Limitations: no limitations Nursing Notes Reviewed: Yes Vital Signs Reviewed: Yes - History of Present Illness HPI Narrative: Patient presents complaining abnormal labs. Per report patient had blood work done at his oncologist office today no today there was some abnormalities. Patient noted he is been feeling more weak and dizzy. Patient denies shortness of breath he has had no cough patient has had fever at home. His oncologist started him on Augmentin for his fever and due to blood work. Patient denies numbness and tingling associated with this. Pain Scale: 5 - Related Data Home Medications Medication Instructions Recorded Confirmed Ondansetron HCl 4 mg PO Q8H PRN 08/11/16 08/24/16 Prochlorperazine Maleate 10 mg PO Q8HR PRN 08/11/16 08/24/16 [Compazine] Atenolol [Tenormin] 25 mg PO DAILY 08/24/16 08/24/16 Lactose-Reduced Food [Ensure 1 bottle PO TID 08/24/16 08/24/16 Liquid] Lisinopril/Hydrochlorothiazide 1 tab PO DAILY 08/24/16 08/24/16 [Zestoretic 20-12.5 mg Tablet] OxyCODONE Immed Rel [Roxicodone 5 5 mg PO Q6HR PRN 08/24/16 08/24/16 MG] Previous Rx's Medication Instructions Recorded Amoxicillin/Clavulanate [Augmentin] 875 mg PO BIDWM #14 tablet MDD FOR 08/23/16 10 DAYS Allergies Allergy/AdvReac Type Severity Reaction Status Date / Time sulfamethoxazole Allergy Rash Verified 08/24/16 10:34 trimethoprim Allergy Rash Verified 08/24/16 10:34 All systems ED: reviewed and negative except as stated. Past Medical History - Past Medical History Source: patient Medical history: Reports: cancer, COPD, hypertension Surgical history: Reports: cancer surgery, colectomy Psychiatric history: Reports: depression - Social History Smoking Status: Heavy tobacco smoker Smokeless Tobacco Status: No Alcohol use: Reports: none Drug use: Reports: none Physical Exam - General Limitations: no limitations General appearance: alert, in no apparent distress, cachectic - Head Head exam: atraumatic, normocephalic, normal inspection - Eye Eye exam: Present: normal appearance, PERRL, EOMI - ENT ENT exam: normal exam, normal oropharynx, mucous membranes moist - Neck Neck exam: Present: normal inspection, full ROM, trachea midline - Chest Chest inspection: Present: normal inspection, symmetric chest wall rise - Respiratory Respiratory exam: Present: normal lung sounds bilaterally - Cardiovascular Cardiovascular exam: Present: regular rate, normal rhythm, normal heart sounds - Abdominal Exam Abdominal exam: Present: soft, Non-Tender. Absent: tenderness, distention, guarding, rebound, rigidity - Back Exam Back exam: Present: normal inspection, full ROM. Absent: tenderness - Neurological Exam Neurological exam: Present: alert, oriented X3 - Psychiatric Psychiatric exam: Present: normal affect, normal mood - Skin Skin exam: Present: warm, other (Jaundice) Course Vital Signs Temperature 100.0 F H 08/24/16 10:27 Pulse Rate 115 08/24/16 10:27 Respiratory Rate 20 08/24/16 10:27 Blood Pressure 131/73 08/24/16 10:27 O2 Sat by Pulse Oximetry 96 08/24/16 10:27 Temperature 100.0 F H 08/24/16 10:27 Pulse Rate 95 08/24/16 12:56 Respiratory Rate 18 08/24/16 12:56 Blood Pressure 124/76 08/24/16 12:56 O2 Sat by Pulse Oximetry 96 08/24/16 12:56 Oxygen Delivery Oxygen Delivery Room Air Medical Decision Making - Differential Diagnosis Sepsis, liver dysfunction, urinary tract infection, pneumonia - Lab Data Result diagrams: 08/24/16 11:00 08/24/16 11:00 Lab Results 08/24/16 08/24/16 08/24/16 Range/Units 11:00 11:00 11:00 WBC 22.8 H D (4.3-11.1) K/mcL RBC 3.14 L (4.19-5.50) M/mcL Hgb 9.2 L (12.9-16.9) g/dL Hct 29.5 L (37.5-50.1) % MCV 93.9 (83.0-100.0) fL MCH 29.3 (28.0-33.3) pg MCHC 31.2 L (31.6-35.5) g/dL RDW 17.9 H (11.5-14.5) % Plt Count 257 (140-400) K/mcL MPV 9.2 L (9.4-12.4) fL Immature Gran % 0.8 (0-4) % Seg Neutrophils % 92.4 % Lymphocytes % 1.5 % Monocytes % 5.3 % Eosinophils % 0.0 % Basophils % 0.0 % Neutrophils # 21.1 H (1.6-8.9) K/mcL Lymphocytes # 0.3 L (0.6-4.6) K/mcL Monocytes # 1.2 (0.0-1.3) K/mcL Eosinophils # 0.0 (0.0-0.6) K/mcL Basophils # 0.0 (0.0-0.2) K/mcL Platelet Estimate Normal (Normal) PT 12.9 H (9.4-12.1) Seconds INR 1.2 APTT 31.0 (26.0-36.0) Seconds Sodium 133 L (136-145) mEq/L Potassium 3.4 L (3.5-4.5) mEq/L Chloride 99 (98-109) mEq/L Carbon Dioxide 27 (19-29) mEq/L BUN 13 (8-26) mg/dL Creatinine 0.83 (0.72-1.25) mg/dL Est GFR ( Amer) > 60 (> 60) Est GFR (Non-Af Amer) > 60 (> 60) BUN/Creatinine Ratio 16 (6-26) Glucose 157 H (70-99) mg/dL Calculated Osmolality 279 L (280-300) Lactic Acid (0.5-2.2) mmol/L Calcium 8.3 L (8.6-10.8) mg/dL Total Bilirubin 12.0 H (0.2-1.2) mg/dL AST 93 H (5-34) Units/L ALT 87 H (0-55) Units/L Alkaline Phosphatase 819 H (38-126) Units/L Troponin I (0-0.03) ng/mL Serum Total Protein 7.3 (6.0-8.3) g/dL Albumin 1.6 L (3.5-5.0) g/dL Globulin 5.7 H (2.4-3.5) g/dL Albumin/Globulin Ratio 0.3 L (1.1-2.2) Lipase 29 (8-78) Units/L 08/24/16 08/24/16 Range/Units 11:00 11:02 WBC (4.3-11.1) K/mcL RBC (4.19-5.50) M/mcL Hgb (12.9-16.9) g/dL Hct (37.5-50.1) % MCV (83.0-100.0) fL MCH (28.0-33.3) pg MCHC (31.6-35.5) g/dL RDW (11.5-14.5) % Plt Count (140-400) K/mcL MPV (9.4-12.4) fL Immature Gran % (0-4) % Seg Neutrophils % % Lymphocytes % % Monocytes % % Eosinophils % % Basophils % % Neutrophils # (1.6-8.9) K/mcL Lymphocytes # (0.6-4.6) K/mcL Monocytes # (0.0-1.3) K/mcL Eosinophils # (0.0-0.6) K/mcL Basophils # (0.0-0.2) K/mcL Platelet Estimate (Normal) PT (9.4-12.1) Seconds INR APTT (26.0-36.0) Seconds Sodium (136-145) mEq/L Potassium (3.5-4.5) mEq/L Chloride (98-109) mEq/L Carbon Dioxide (19-29) mEq/L BUN (8-26) mg/dL Creatinine (0.72-1.25) mg/dL Est GFR ( Amer) (> 60) Est GFR (Non-Af Amer) (> 60) BUN/Creatinine Ratio (6-26) Glucose (70-99) mg/dL Calculated Osmolality (280-300) Lactic Acid 2.1 (0.5-2.2) mmol/L Calcium (8.6-10.8) mg/dL Total Bilirubin (0.2-1.2) mg/dL AST (5-34) Units/L ALT (0-55) Units/L Alkaline Phosphatase (38-126) Units/L Troponin I 0.01 (0-0.03) ng/mL Serum Total Protein (6.0-8.3) g/dL Albumin (3.5-5.0) g/dL Globulin (2.4-3.5) g/dL Albumin/Globulin Ratio (1.1-2.2) Lipase (8-78) Units/L - Radiology Data Radiology results reviewed: Yes I reviewed the patient's radiology results. Abdomen/Pelvis CT 08/24/16 10:50 IMPRESSION: Interval placement of metallic stents, and removal of the previously identified plastic stents. Increased intrahepatic biliary dilation compared to the previous examination on 07/24/2016. Some fluid, and gas is noted within the metallic stent. There is also question of possible soft tissue density seen within the intrahepatic portion of the metallic stent, similar to the abnormal filling defects seen within the intrahepatic ducts related to the central hepatic mass which may be related to intrastent extension. The focal right hepatic lobe mass appears lower in attenuation on today's examination which could be related to central necrosis, possibly related to treatment response. The central hepatic mass also appears mildly increased in size as well with filling of multiple central hepatic ducts. Small volume of ascites. Stable bilateral adrenal nodules. D/ / 08/24/2016 12:07:58 Radu Lipscomb MD / Britta Ulloa Interpreting Provider: Radu Lipscomb MD Critical Care Time Total Critical Care Time: 60 Attestation: Critical care performed: Time is exclusive of separately billable procedures. Time includes: direct patient care, patient reassessment, coordination of patient care, interpretation of data (laboratory data, radiology data, and respiratory data), review of patient's medical records, medical consultation and documentation of patient care. Procedures included in critical care time: Procedures excluded from critical care time:
[2016-08-24] MEDS ORDERED: Naloxone 0.4 MG/ML INJ IVP PRN (13:41)
[2016-08-24] MEDS ORDERED: Acetaminophen 325 MG TABLET PO PRN (13:42)
[2016-08-24] MEDS ORDERED: *HR* HYDROcodone/Acet 5/325 mg TABLET PO PRN (13:42)
[2016-08-24] MEDS: 0.9 % Sodium Chloride 1,000 ML IVC SCH (14:28)
--- NOTE | 2016-08-24 14:29 | Internal Med History&Physical ---
Date of Encounter: 08/24/16 Time of Encounter: 13:00 Assessment and Plan (1) Acute cholangitis Current visit: Yes Status: Acute 1 patient underwent soon changes 07/23 was hospitalized. Experiencing low-grade fevers weakness falls to T. He saw his oncologist / TIBC was 14 at that time labs were rechecked daily after meals was 22 this a.m. patient was started on Augmentin for low-grade fever per oncology. CT of abdomen did reveal some fluid and gas within the metallic stent questionable possible soft tissue density seen within the intrahepatic portion of the metallic symptoms similar to the abnormal filling defects seen with and the intrahepatic ducts. Dr. Carbone has been consulted per ER physician 2 blood cultures have been obtained-continue with meropenem 3 continue with IV fluids-patient was tachycardic as well as experiencing low- grade temperature 4 we will make nothing by mouth for now until seen by GI 5 lactate was 2.1 we will recheck (2) Obstructive jaundice due to malignant neoplasm Current visit: Yes Status: Acute 1 GI has been consulted (3) Colon cancer metastasized to liver Current visit: Yes Status: Chronic 1 continue with oncology as outpatient in consult as needed (4) Anemia Current visit: Yes Status: Chronic 1 patient denies any melena hematochezia hematemesis, presently hemoglobin stable at 9.2 we will continue to monitor cbc and transfuse as needed Qualifiers: Anemia type: other cause Other causes of anemia: chronic disease, neoplastic Qualified Code(s): D63.0 - Anemia in neoplastic disease (5) COPD (chronic obstructive pulmonary disease) Current visit: No Status: Chronic 1 oxygen as needed to maintain SPO2 greater than 92% 2 bronchodilators as needed Qualifiers: COPD type: emphysema Emphysema type: centrilobular Qualified Code(s): J43.2 - Centrilobular emphysema (6) DVT prophylaxis Current visit: Yes Status: Acute 1 we will hold Lovenox for now until seen by GI, will place on SCDs Internal Medicine - H&P: HPI Chief complaint: Abnormal labs Admitted From: Emergency Dept Plans for Post Hospital Care: Home History of present illness: Mr. 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 Approximately a month ago the patient was admitted to this hospital for hyperbilirubin anemia leukocytosis possible infection and fall he had some questionable melena GI had seen the patient at that time. Patient did have temporary biliary stents, which were replacement with metallic stents. GI did do a workup did not find any bleeding patient was discharged home and was to follow up with oncology. Patient has been experiencing fevers and chills as well as dizzy spells and weakness. 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 He denies any loss of appetite N/V melena hematochezia or hematemesis. He denies any chest pain or shortness of breath cough however does admit to some urinary incontinence as well as urinary dribbling which he states is new he denies any dysuria. He saw his oncologist yesterday who did order some lab work. His total bili was 12 wbc's 20 to. He was advised to come to the ER for evaluation. According to the records patient' s lactic acid was 2.[address] of abdomen did reveal increased intrahepatic biliary dilatation compared to previous exam as well as some fluid and gas within the metallic stent. There is questionable central necrosis to right hepatic lobe mass. Dr. Carbone was notified per ER physician and he will see patient on consult. Blood cultures were obtained patient was given meropenem and has been admitted for further work up evaluation. [place] patient denies any pain or discomfort he is alert and appropriate following simple commands. He does appear jaundiced abdomen soft nontender. Colostomy stoma is beefy red with no surrounding breakdown. Presently patient is hemodynamic stable I reviewed CODE STATUS with patient, he requested to be a DNR CCA no intubation I reviewed this case with who agrees with plan. Past Med Surg Social Fam HX - Past Medical History Medical history: cancer, COPD, hypertension Psychiatric history: depression - Past Surgical History Surgical History: cancer surgery, colectomy, colostomy - Social History Smoking Status: Current every day smoker Smokeless Tobacco Status: No Alcohol use: none Drug use: none - Family History Mother Living Status: Hx Family Cardiac Disorders: Yes Internal Medicine - H&P: Meds Ondansetron HCl 4 mg PO Q8H PRN 08/11/16 [History] Prochlorperazine Maleate [Compazine] 10 mg PO Q8HR PRN 08/11/16 [History] Amoxicillin/Clavulanate [Augmentin] 875 mg PO BIDWM #14 tablet MDD FOR 10 DAYS 08/23/16 [Rx] Atenolol [Tenormin] 25 mg PO DAILY 08/24/16 [History] Lactose-Reduced Food [Ensure Liquid] 1 bottle PO TID 08/24/16 [History] Lisinopril/Hydrochlorothiazide [Zestoretic 20-12.5 mg Tablet] 1 tab PO DAILY [History] OxyCODONE Immed Rel [Roxicodone 5 MG] 5 mg PO Q6HR PRN 08/24/16 [History] Allergies sulfamethoxazole Allergy (Verified 08/24/16 10:34) Rash trimethoprim Allergy (Verified 08/24/16 10:34) Rash All Systems PM: A 10-system review of systems was performed and is negative for pertinent findings except as documented above in the HPI. - Constitutional Constitutional: fever(s), falls, weakness - Cardiovascular Cardiovascular ROS IM: no chest pain, no diaphoresis, no dyspnea, no lightheadedness, no palpitations, no syncope - Respiratory Respiratory: no cough, no dyspnea, no wheezing, no excessive phlegm production - Gastrointestinal Gastrointestinal: no abdominal pain, no diarrhea, no hematemesis, no hematochezia, no melena, no nausea, no vomiting - Genitourinary Genitourinary ROS male: urinary frequency, urinary incontinence - Musculoskeletal Musculoskeletal ROS IM: no numbness, no tingling - Integumentary Integumentary IM: no rash, no unusual bruising - Neurological Neurological ROS: no confusion, no convulsions, no focal weakness, no numbness, no tingling, no tremor(s) - Hematologic/Lymphatic Hematologic/Lymphatic: easy bruising - Constitutional Vitals: Temp Pulse Resp BP Pulse Ox 99.3 F 96 16 128/73 94 08/24/16 13:56 08/24/16 13:56 08/24/16 13:56 08/24/16 13:56 08/24/16 14:04 General appearance: Present: A&O X 3, underweight, answers questions appropriately - Head Head exam: Present: atraumatic, normocephalic - Eye Eye exam: Present: PERRL, scleral icterus, conjuntiva pink Pupils: Present: PERRL - Neck Neck exam general surgery: Present: supple, trachea midline. Absent: lymphadenopathy - Respiratory Respiratory exam: Absent: accessory muscle use, rales, rhonchi, wheezes Additional comments: Crackles in bases bilaterally - Cardiovascular Cardiovascular exam: Present: RRR, +S1, +S2. Absent: diastolic murmur, gallop, rubs, systolic murmur - GI/Abdominal GI/Abdominal exam: Present: normal bowel sounds, soft, no peritoneal signs. Absent: distended, tenderness Additional comments: Colostomy to the left upper quadrant - Extremities Exam Extremities exam: Present: pedal edema, warm, radial pulses palpable and symetrical. Absent: calf tenderness, cyanotic - Neurological Exam Neurological exam: Present: CN II-XII intact, oriented X3, no focal deficits. Absent: pronater drift, facial droop, speech deficit - Skin Skin exam: Present: dry, intact Internal Med - H&P Results - Labs CBC & Chem 7: 08/24/16 11:00 08/24/16 11:00 - Diagnostic Studies Other Images Additional comments: Abdomen/Pelvis CT 08/24/16 10:50 IMPRESSION: Interval placement of metallic stents, and removal of the previously identified plastic stents. Increased intrahepatic biliary dilation compared to the previous examination on 07/24/2016. Some fluid, and gas is noted within the metallic stent. There is also question of possible soft tissue density seen within the intrahepatic portion of the metallic stent, similar to the abnormal filling defects seen within the intrahepatic ducts related to the central hepatic mass which may be related to intrastent extension. The focal right hepatic lobe mass appears lower in attenuation on today's examination which could be related to central necrosis, possibly related to treatment response. The central hepatic mass also appears mildly increased in size as well with filling of multiple central hepatic ducts. Small volume of ascites. Stable bilateral adrenal nodules. D/ / 08/24/2016 12:07:58 Radu Lipscomb MD / Britta Ulloa Interpreting Provider: Radu Lipscomb MD
[2016-08-24 15:13] LABS: Bilirubin,Urine Large (Negative); Blood,Urine Negative (Negative); Clarity,Urine Clear (Clear); Glucose,Urine (UA) Normal (Normal); Ketones,Urine Negative (Negative); Leukocyte Esterase,Urine Small (Negative); Nitrite,Urine Positive (Negative); Protein,Urine Negative (Neg-Trace); Specific Gravity,Urine > 1.030 (1.010-1.025); Urobilinogen,Urine Normal (Normal)
[2016-08-24 15:16] LABS: Hyaline Casts,Urine None Seen per lpf (None-Few); Squamous Epithelial Cell,Urine Few per lpf (None-Few); WBC,Urine 0-3 per hpf (0-3)
[2016-08-24 15:20] LABS: Color,Urine Orange (Yellow)
[2016-08-24 15:30] LABS: Bacteria,Urine Few per hpf (None-Few)
[2016-08-24] MEDS ORDERED: Albuterol 2.5 MG/3 ML NEBULIZER IH PRN (15:37)
[2016-08-24] MEDS ORDERED: Piperacillin/Tazobactam 3.375 GM in D5% in Water (Mini-Bag+) 100 ML IVPB SCH (16:00)
--- NOTE | 2016-08-24 17:59 | Oncology Inp Consult Note ---
Date of Encounter: 08/24/16 Time of Encounter: 16:00 Assessment and Plan (1) Colon cancer metastasized to liver Status: Chronic Assessment and plan: On treatment with 5-FU, panitumumab oxaliplatin low dose-treatment held since hospitalization discharge 07/23 due to gen wkness and patient had clinically improved until recently. Hyperbilirubinemia-stent occlusion/dil ducts, possible GI re-evaluation for ERCP/drainage. BC, continue abx, leucocytosis febrile, r/o sepsis. Imaging discussed with him briefly. Concern for progression CEA upto 20-will try to resume chemotherapy once stable. On oxycodone prn for back discomfort as outpatient. On morphine prn for pain control. NPO if procedure is planned. Discussed with nursing staff. - Data of Consult Requesting Physician: Jamar Alejandra DO Primary Care Provider: Mady Aparicio MD - Consult Narrative Reason for consult: colon cancer liver mets History of present illness: Metastatic moderately differentiated adenocarcinoma of the sigmoid colon with liver lesions, medical history also significant for COPD, not on home oxygen, hypertension, who had exploratory laparotomy with sigmoid colectomy with end descending colostomy, Mariela pouch, en bloc resection of small bowel (with adherence), liver biopsies (3 lesions felt)--, Path showed moderately differentiated adenocarcinoma invading serosa ,0/14 LN positive, biopsy of liver lesion positive. [id number] stage MIKA...meaghan unmutated. S/P oxaliplatin on day 1 and xeloda 500mg PO BID Days 1-14 with 7 days off for every 21 day cycle CYCLE 1 on 08/02/14. PET after 2 months of treatment-decrease uptake in multiple liver lesions He took his last Rx around 07/22, and did not follow up Seen by PCP 02/21 and labs showed elevated LFTs. CEA was increased at 9.3 He returned for f/u with concern of progression of cancer CT CAP--liver lesions 2 inferior (new lesions noted). Progressive increase in the central lesion Bilirubin was upto 10--he had ERCP and stent placed. Path necrotic debri-benign vs malignant on 03/24 Rpt bilirubin 3.2 03/24 He started 5FU with inf pump and oxaliplatin after this. He underwent stent change 07/23--was hospitalized around this time with hyperbilirubinemia, leucocytosis, possible infection (purulent drainage at time of stent change) and fall. Was seen in the clinic with labs showing some improvement. He had some ally/? GI bleed at the time of fall. s/p injectafer 07/23 Seen on 08/23/16 obtained labs, bilirubin again elevated upto 11. He had mild fever, no pain. Hospitalized for further evaluation and to r/o cholangitis/stent occlysion. He has some biliary dilatation possibly from tumor growth obstruction in the liver. c/p min pain today in the upper abd area. General wkness. Has not restarted chemotherapy since 07/23. Past Med Surg Social Fam HX - Past Medical History Medical history: cancer, COPD, hypertension Psychiatric history: depression - Past Surgical History Surgical History: cancer surgery, colectomy, colostomy - Social History Smoking Status: Current every day smoker Smokeless Tobacco Status: No Alcohol use: none Drug use: none - Family History Mother Living Status: Hx Family Cardiac Disorders: Yes Medications and Allergies Ondansetron HCl 4 mg PO Q8H PRN 08/11/16 [History] Prochlorperazine Maleate [Compazine] 10 mg PO Q8HR PRN 08/11/16 [History] Amoxicillin/Clavulanate [Augmentin] 875 mg PO BIDWM #14 tablet MDD FOR 10 DAYS 08/23/16 [Rx] Atenolol [Tenormin] 25 mg PO DAILY 08/24/16 [History] Lactose-Reduced Food [Ensure Liquid] 1 bottle PO TID 08/24/16 [History] Lisinopril/Hydrochlorothiazide [Zestoretic 20-12.5 mg Tablet] 1 tab PO DAILY [History] OxyCODONE Immed Rel [Roxicodone 5 MG] 5 mg PO Q6HR PRN 08/24/16 [History] Allergies sulfamethoxazole Allergy (Verified 08/24/16 10:34) Rash trimethoprim Allergy (Verified 08/24/16 10:34) Rash Review of systems: as in HPI Oncology - Exam - Constitutional Vitals: Temp Pulse Resp BP Pulse Ox 98.7 F 78 16 115/70 99 08/24/16 15:53 08/24/16 15:53 08/24/16 15:53 08/24/16 15:53 08/24/16 15:53 General appearance: thin - Head Head exam: Present: atraumatic, normal inspection - Eye Eye exam: Present: scleral icterus - ENT ENT exam: Present: mucous membranes dry - Respiratory Respiratory exam: Present: CTAB - Cardiovascular Cardiovascular exam: Present: +S1, +S2 - GI/Abdominal GI/Abdominal exam: Present: soft Additional comments: non tender, left ostomy+stool - Extremities Exam Extremities exam: Present: normal inspection - Neurological Exam Neurological exam: Present: alert, oriented X3, no focal deficits - Skin Additional comments: multiple brusing abrasion Oncology - Results - Labs Labs: Urine 08/24/16 Range/Units 14:55 Urine Color Dickens A (Yellow) Urine Clarity Clear (Clear) Urine pH 6.0 (5.0-8.0) pH Units Ur Specific [place] > 1.030 H (1.010-1.025) Urine Protein Negative (Neg-Trace) mg/dL Urine Glucose (UA) Normal (Normal) mg/dL - Imaging and Cardiology CT scan - abdomen Status: image reviewed by me Consult Discharge Plan - Plan Referrals: Mady Aparicio MD [Primary Care Provider] -
[2016-08-24] MEDS ORDERED: Meropenem 1,000 MG in 0.9 % Sodium Chloride Mini Bag 100 ML IVPB SCH (18:00)
[2016-08-24] MEDS: *HR* Morphine 2 MG/ML SYRINGE IVP PRN (20:03)
[2016-08-25] MEDS: 0.9 % Sodium Chloride 1,000 ML IVC SCH (01:18)
[2016-08-25] MEDS: *HR* Morphine 2 MG/ML SYRINGE IVP PRN ×2 (01:19→23:51)
[2016-08-25 02:34] LABS: Acinetobacter baumannii by PCR Not Detected (Not Detect); Candida albicans by PCR Not Detected (Not Detect); Candida glabrata by PCR Not Detected (Not Detect); Candida krusei by PCR Not Detected (Not Detect); Candida parapsilosis by PCR Not Detected (Not Detect); Candida tropicalis by PCR Not Detected (Not Detect); Enterococcus by PCR Not Detected (Not Detect); Escherichia coli by PCR ***DETECTED*** (Not Detect); Klebsiella oxytoca by PCR Not Detected (Not Detect); Klebsiella pneumoniae by PCR Not Detected (Not Detect); Pseudomonas aeruginosa by PCR Not Detected (Not Detect); Serratia marcescens by PCR Not Detected (Not Detect); Staphylococcus aureus by PCR Not Detected (Not Detect); Streptococcus agalactiae(B)PCR Not Detected (Not Detect); Streptococcus by PCR Not Detected (Not Detect); Streptococcus pneumoniae PCR Not Detected (Not Detect); Streptococcus pyogenes (A) PCR Not Detected (Not Detect); blaKPC Carbapenem-Resist Gene Not Detected (Not Detect)
[2016-08-25] MEDS ORDERED: Piperacillin/Tazobactam 3.375 GM in D5% in Water (Mini-Bag+) 100 ML IVPB SCH (04:00)
[2016-08-25 04:43] LABS: Hematocrit 25.7 % (37.5-50.1); Hemoglobin 8.1 g/dL (12.9-16.9); Immature Granulocytes % 0.6 % (0-4); Lymphocytes # 1.7 K/mcL (0.6-4.6); Mean Corpuscular HGB Conc 31.5 g/dL (31.6-35.5); Mean Corpuscular Volume 95.2 fL (83.0-100.0); Mean Platelet Volume 10.1 fL (9.4-12.4); Monocytes % 4.9 %; Neutrophils # 18.2 K/mcL (1.6-8.9); Platelet Count 210 K/mcL (140-400); Red Cell Distribution Width 18.2 % (11.5-14.5); Segmented Neutrophils % 86.5 %
[2016-08-25 04:55] LABS: BUN/Creatinine Ratio 15 (6-26); Blood Urea Nitrogen 11 mg/dL (8-26); Calcium 7.9 mg/dL (8.6-10.8); Carbon Dioxide 27 mEq/L (19-29); Chloride 103 mEq/L (98-109); Glucose 96 mg/dL (70-99); Osmolality,Calculated 281 (280-300); Potassium 3.7 mEq/L (3.5-4.5); eGFR For African Americans > 60 (> 60); eGFR For Non-African Americans > 60 (> 60)
[2016-08-25 05:00] LABS: Sodium 136 mEq/L (136-145)
[2016-08-25] MEDS ORDERED: *HR* Enoxaparin 40 MG/0.4 ML SYRINGE SQ SCH (07:00)
[2016-08-25 09:27] LABS: Alanine Aminotransferase 75 Units/L (0-55); Albumin/Globulin Ratio 0.3 (1.1-2.2); Alkaline Phosphatase 712 Units/L (38-126); Aspartate Amino Transferase 81 Units/L (5-34); Bilirubin,Direct 8.4 mg/dL (0.0-0.5); Bilirubin,Indirect 2.4 mg/dL (0.0-1.2); Bilirubin,Total 10.8 mg/dL (0.2-1.2); Globulin 4.9 g/dL (2.4-3.5); Total Protein 6.3 g/dL (6.0-8.3)
[2016-08-25 09:44] LABS: Albumin 1.4 g/dL (3.5-5.0)
--- NOTE | 2016-08-25 11:44 | Gastroenterology Consult Note ---
<Russell Miller - Last Filed: 08/25/16 11:41> Date of Encounter: 08/25/16 Time of Encounter: 10:25 - Assessment and plan (1) Anemia Current Visit: No Status: Chronic Assessment and plan: Continue to monitor CBC and transfuse PRBC as indicated. Qualifiers: Anemia type: other cause Other causes of anemia: chronic disease, neoplastic Qualified Code(s): D63.0 - Anemia in neoplastic disease (2) Colon cancer metastasized to liver Current Visit: Yes Status: Chronic Assessment and plan: CT A/P concern for tumor extension into metal stent. On admission, TB 12, AST 93 , ALT 87, and alk phos 819. Today TB 10.8, AST 81, ALT 75, Alk phos 712. Plan for ERCP today with possible plastic stent insertion. Keep NPO. (3) Obstructive jaundice due to malignant neoplasm Current Visit: Yes Status: Acute (4) Acute cholangitis Current Visit: Yes Status: Acute Assessment and plan: He was started on Augmentin by Oncologist for low grade fever on 08/23/16. Blood cultures positive for E.coli. Continue Zosyn. Pt has been afebrile since admission with Tmax of 100.2. - Time Spent With Patient Total time spent is greater than 50% in coordination of care (as documented) at patient's floor/unit and/or counseling patient: GI History of Present Illness - Data of Consult Patient: known to practice within the last 3 years Consult date: 08/25/16 Requesting Physician: Dean Ott - Consult Narrative Reason for consult: Hepatic stent evaluation History of present illness: Mr. Izquierdo is a 71 year old male with PMHx of colon cancer with liver metastases, a previous ERCP with stent placement, COPD, and HTN. Patient has been experiencing fevers and chills as well as dizzy spells and weakness. He denies any loss of appetite, N/V, melena, hematochezia, or hematemesis. He denies any chest pain, SOB, or cough. CT A/P showed increased intrahepatic biliary dilation compared to previous exam, some fluid and gas noted within the metallic stent, possible soft tissue density seen within the intrahepatic portion of the metallic symptoms similar to the abnormal filling defects seen within the intrahepatic ducts. Previous ERCP in March showed the middle third of the main bile duct just above the take off of cystic duct was completely obstructed by a possible mass, an 8 mm sphincterotomy was performed. Dilation of the upper third of the main bile duct was successful. Sweeps done with 8.5 mm balloon and some sludge possible tissue like material was pulled from the bile duct. One temporary plastic stent was placed in the CBD. He had repeat ERCP July 2016 with metal stent placed, purulent drainage coming from major papilla. Procedures: ERCP 07/27/2016 with metal stent placed, purulent drainage coming from major papilla. ERCP 03/24/2016 NSAIDs: None Anticoagulation: None Past Med Surg Social Fam HX - Past Medical History Medical history: cancer, COPD, hypertension Psychiatric history: depression - Past Surgical History Surgical History: cancer surgery, colectomy, colostomy - Social History Smoking Status: Current every day smoker Smokeless Tobacco Status: No Alcohol use: none Drug use: none - Family History Mother Living Status: Hx Family Cardiac Disorders: Yes - Gastrointestinal Gastrointestinal: Present: as per HPI - Constitutional Constitutional: as per HPI - EENT Eyes: as per HPI Ears: Present: as per HPI Nose, mouth and throat: Present: as per HPI - Cardiovascular Cardiovascular ROS: Present: as per HPI - Respiratory Respiratory IM: Present: as per HPI - Genitourinary Genitourinary: Absent: change in color, Urinary frequency - Neurological ROS Neurological GI: Present: as per HPI - Hematologic/Lymphatic Hematologic/Lymphatic pediatric: Present: as per HPI - Musculoskeletal Musculoskeletal ROS GI: Present: as per HPI - Integumentary Integumentary GI: Present: as per HPI - Psychiatric ROS Psychiatric GI: Present: as per HPI - Endocrine Endocrine IM: Present: as per HPI - Constitutional Vitals: Temp Pulse Resp BP Pulse Ox 98.5 F 75 16 120/77 98 08/25/16 07:02 08/25/16 07:02 08/25/16 07:02 08/25/16 07:02 08/25/16 10:08 General appearance: Present: cooperative, A&O X 3, no acute distress, thin, answers questions appropriately - Head Head exam: Present: atraumatic, normocephalic - Eye Eye exam: Present: scleral icterus - Neck Neck exam general surgery: Present: normal inspection, trachea midline - Respiratory Respiratory exam: Present: CTAB - Cardiovascular Cardiovascular exam: Present: RRR, +S1, +S2 - GI/Abdominal GI/Abdominal exam: Present: normal bowel sounds, soft, no peritoneal signs. Absent: distended, firm, guarding, tenderness Additional comments: ostomy LUQ - Rectal Rectal exam: Present: deferred - Extremities Exam Extremities exam: Present: warm - Neurological Exam Neurological exam: Present: no focal deficits - Psychiatric Psychiatric exam: Present: normal affect, normal mood - Skin Skin exam: Present: dry, intact, warm. Absent: normal color (Jaundiced) Results - Labs CBC & Chem 7: 08/25/16 04:15 08/25/16 04:15 Labs: Last Result Calcium 7.9 mg/dL (8.6-10.8) L 08/25/16 04:15 Troponin I 0.01 ng/mL (0-0.03) 08/24/16 11:00 Entire Visit Hgb 8.1 g/dL (12.9-16.9) L 08/25/16 04:15 Hct 25.7 % (37.5-50.1) L 08/25/16 04:15 PT 12.9 Seconds (9.4-12.1) H 08/24/16 11:00 Total Bilirubin 10.8 mg/dL (0.2-1.2) H 08/25/16 04:15 AST 81 Units/L (5-34) H 08/25/16 04:15 ALT 75 Units/L (0-55) H 08/25/16 04:15 Lipase 29 Units/L (8-78) 08/24/16 11:00 E. coli (PCR) DETECTED (Not Detect) A 08/24/16 11:00 - ABG ABG results: PT/INR, D-dimer PT 12.9 Seconds (9.4-12.1) H 08/24/16 11:00 Consult Discharge Plan - Plan Referrals: Mady Aparicio MD [Primary Care Provider] - 09/03/16 10:20 am <Marah Carbone - Last Filed: 08/25/16 17:28> Date of Encounter: 08/25/16 Time of Encounter: 14:00 - Time Spent With Patient Total time spent is greater than 50% in coordination of care (as documented) at patient's floor/unit and/or counseling patient: GI History of Present Illness - Data of Consult Requesting Physician: Dean Ott - Consult Narrative History of present illness: Mr. Izquierdo is a 71 year old male - Constitutional Vitals: Temp Pulse Resp BP Pulse Ox 97.4 F L 61 16 136/75 98 08/25/16 15:54 08/25/16 15:54 08/25/16 15:54 08/25/16 15:54 08/25/16 15:54 Results - Labs CBC & Chem 7: 08/25/16 04:15 08/25/16 04:15 Labs: Last Result Calcium 7.9 mg/dL (8.6-10.8) L 08/25/16 04:15 Troponin I 0.01 ng/mL (0-0.03) 08/24/16 11:00 Entire Visit Hgb 8.1 g/dL (12.9-16.9) L 08/25/16 04:15 Hct 25.7 % (37.5-50.1) L 08/25/16 04:15 PT 12.9 Seconds (9.4-12.1) H 08/24/16 11:00 Total Bilirubin 10.8 mg/dL (0.2-1.2) H 08/25/16 04:15 AST 81 Units/L (5-34) H 08/25/16 04:15 ALT 75 Units/L (0-55) H 08/25/16 04:15 Lipase 29 Units/L (8-78) 08/24/16 11:00 E. coli (PCR) DETECTED (Not Detect) A 08/24/16 11:00 - ABG ABG results: PT/INR, D-dimer PT 12.9 Seconds (9.4-12.1) H 08/24/16 11:00 - Impressions Impressions Cath/Invasive Procedure 08/25/16 15:10 IMPRESSION: ERCP images from successful cannulation of an existing metallic biliary stent, with placement of a plastic stent through the metallic stent as above. Please see surgical report for complete details. D/ / Radu Lipscomb MD / Radu Lipscomb MD Interpreting Provider: Radu Lipscomb MD - Attending Attestation I examined this patient and my medical decision-making was reviewed with the FARM CROPS TEACHER/PA/Advanced Practice Nurse/Resident Physician. I agree with the documented findings, disposition and treatment plan as described except to the extent set forth below. Patient with metastatic colon cancer. CT scan reviewed there is large hilar tumor due to metastasis. There is concern that the tumor has grown into the metal stent. Patient does has cholangitis. Recommendation continue IV antibiotics. ERCP with the possible placement of plastic stent inside a metal stent
[2016-08-25] MEDS ORDERED: *HR* Propofol 200 MG/20 ML VIAL IVP ONE (12:39)
[2016-08-25] MEDS ORDERED: *HR* Succinylcholine 200 MG/10 ML VIAL IVP ONE (12:39)
[2016-08-25] MEDS ORDERED: Lidocaine -MPF 2% 5 ML VIAL INFILT ONE (12:39)
--- NOTE | 2016-08-25 13:18 | Anesthesia Evaluation PreOp ---
Date of Encounter: 08/25/16 Time of Encounter: 13:18 - Past History Planned Operation: ERCP Cardiac History: HTN Pulmonary History: Smoker, COPD (Home O2) DEAN OF GRADUATE STUDIES History: Denies Any Significant HX Other Medical History: Hepatic (Liver mets from colon CA) Anesthesia History: No Prior Anesthetic Complications, Past Anesthesia ( Colectomt, ERCP 07/27/2016) Alcohol Use: none Drug use: none Medications and Allergies Ondansetron HCl 4 mg PO Q8H PRN 08/11/16 [History] Prochlorperazine Maleate [Compazine] 10 mg PO Q8HR PRN 08/11/16 [History] Amoxicillin/Clavulanate [Augmentin] 875 mg PO BIDWM #14 tablet MDD FOR 10 DAYS 08/23/16 [Rx] Atenolol [Tenormin] 25 mg PO DAILY 08/24/16 [History] Lactose-Reduced Food [Ensure Liquid] 1 bottle PO TID 08/24/16 [History] Lisinopril/Hydrochlorothiazide [Zestoretic 20-12.5 mg Tablet] 1 tab PO DAILY [History] OxyCODONE Immed Rel [Roxicodone 5 MG] 5 mg PO Q6HR PRN 08/24/16 [History] Allergies sulfamethoxazole Allergy (Verified 08/24/16 10:34) Rash trimethoprim Allergy (Verified 08/24/16 10:34) Rash - Meds/Allergy Pre-op Review Medications Reviewed: Yes Allergies Reviewed: Yes Beta Blockers on Current Med List: Yes If Beta Blockers taken, Date/Time (Last Dose taken): 09:42 08/25/2016 Anesthesia Results - Labs 08/25/16 04:15 08/25/16 04:15 - Imaging EKG: image reviewed (SR, RBBB, LAFB) Anesthesia Exam O2 Sat Weight 50.2 kg Weight 51.7 kg O2 Sat by Pulse Oximetry 98 O2 Sat by Pulse Oximetry 98 O2 Sat by Pulse Oximetry 98 O2 Sat by Pulse Oximetry 97 O2 Sat by Pulse Oximetry 91 O2 Sat by Pulse Oximetry 91 O2 Sat by Pulse Oximetry 99 O2 Sat by Pulse Oximetry 94 O2 Sat by Pulse Oximetry 99 Vital Signs Temp Pulse Resp BP Pulse Ox 100.0 F H 115 20 131/73 96 08/24/16 10:27 08/24/16 10:27 08/24/16 10:27 08/24/16 10:27 08/24/16 10:27 Vital Signs/O2 Sat, Most Current Temp Pulse Resp BP Pulse Ox 98.4 F 62 16 108/67 98 08/25/16 11:51 08/25/16 11:51 08/25/16 11:51 08/25/16 11:51 08/25/16 11:51 Height: 5'8" Weight: 110# NPO (# of Hours): > 8 hrs Pain Scale: 0 Pain Scale Used: Numeric (1 - 10) - HEENT Pupil (Motor): Pupils equal, EOMI Mallampati: II Teeth: Edentulous Oral Opening: Greater than 3 - DEAN OF [employer]UD[employer] LOC: Oriented DEAN OF [employer]UD[employer] Motor: Normal RUE, Normal LUE, Normal RLE, Normal LLE, Normal Face DEAN OF GRADU[employer]UDIES Sensory: Normal: RUE, LUE, RLE, LLE, Face - Cardiac Rhythm: Regular Murmur: None JVD: No Carotid Bruit: No - Pulmonary Breath Sounds: bilateral Clear Respiratory Effort: Symmetrical Anesthesia Assess/Plan ASA Score: 3 Modified Pradip Scale for Level of Consciousness: Cooperative, oriented, and tranquil Anesthetic Plan: General Autologous Blood: Yes Monitoring Plan: Standard Monitors Recovery Plan: PACU
[2016-08-25] MEDS ORDERED: *HR* Morphine 2 MG/ML SYRINGE IVP PRN (14:39)
[2016-08-25] MEDS ORDERED: Dexamethasone 4 MG/ML VIAL IVP PRN (14:39)
[2016-08-25] MEDS ORDERED: Ondansetron 4 MG/2 ML VIAL IVP PRN (14:39)
[2016-08-25] MEDS ORDERED: *HR* Labetalol 100 MG/20 ML MDV IVP PRN (14:39)
[2016-08-25] MEDS ORDERED: Ringers Solution, Lactated 1,000 ML IVC SCH (15:30)
--- NOTE | 2016-08-25 15:39 | Anesthesia Evaluation Post Op ---
Date of Encounter: 08/25/16 Time of Encounter: 15:39 - Vital Signs Vital Signs: Vital Signs/O2 Sat, Most Current Temp Pulse Resp BP Pulse Ox 98.1 F 60 14 148/73 95 08/25/16 15:33 08/25/16 15:33 08/25/16 15:33 08/25/16 15:33 08/25/16 15:33 - Lungs Lungs: Clear Ascult./Percussion - Airway Airway: Non-obstructed - Cardiovascular Regular Rate - Mental Status Mental Status: Alert & Oriented, Answers Appropriately - Pain Pain Scale: 0 Pain Scale used: Numeric (1 - 10) - Nausea Vomiting Nausea Vomiting: Not Present - Hydration Hydration: NPO, Has not voided - Discharge PostOp Status: Transfer Patient to floor
[2016-08-25] MEDS: Piperacillin/Tazobactam 3.375 GM in D5% in Water (Mini-Bag+) 100 ML IVPB SCH ×2 (16:15→23:51)
--- NOTE | 2016-08-25 17:02 | Internal Med Progress Note ---
Date of Encounter: 08/25/16 Time of Encounter: 17:00 - Assessment and plan (1) Acute cholangitis Current Visit: Yes Status: Acute Assessment and plan: Continue with zosyn. history of recent biliary stent placed, however presented jaundiced, with fever and leukocytosis in the setting of underlying malignancy. repeat blood culture. bacteremia noted. echo ordered. D/w patient. ERCP today. D/W GI/ (2) DVT prophylaxis Current Visit: Yes Status: Acute (3) Obstructive jaundice due to malignant neoplasm Current Visit: Yes Status: Acute Assessment and plan: See above. (4) Anemia Current Visit: Yes Status: Chronic Qualifiers: Anemia type: other cause Other causes of anemia: chronic disease, neoplastic Qualified Code(s): D63.0 - Anemia in neoplastic disease (5) Colon cancer metastasized to liver Current Visit: Yes Status: Chronic Assessment and plan: Management as per oncology. - Subjective Interval history: denies shortness of breath, feels fatigued, his family at bedside. - Constitutional Vitals: Temp Pulse Resp BP Pulse Ox 97.4 F L 61 16 136/75 98 08/25/16 15:54 08/25/16 15:54 08/25/16 15:54 08/25/16 15:54 08/25/16 15:54 General appearance: Present: mild distress, A&O X 3, underweight, loss of weight , answers questions appropriately Exam: jaundiced - Head Head exam: Present: atraumatic, normocephalic - Eye Eye exam: Present: PERRL, conjuntiva pink, sclera anicteric Pupils: Present: PERRL - Neck Neck exam general surgery: Present: supple, trachea midline. Absent: lymphadenopathy - Respiratory Respiratory exam: Present: CTAB. Absent: accessory muscle use, rales, rhonchi, wheezes - Cardiovascular Cardiovascular exam: Present: RRR, +S1, +S2. Absent: diastolic murmur, gallop, rubs, systolic murmur - GI/Abdominal GI/Abdominal exam: Present: normal bowel sounds, soft, no peritoneal signs. Absent: distended, tenderness - Extremities Exam Extremities exam: Present: warm, radial pulses palpable and symetrical. Absent : calf tenderness, cyanotic, pedal edema - Neurological Exam Neurological exam: Present: CN II-XII intact, oriented X3, no focal deficits. Absent: pronater drift, facial droop, speech deficit - Skin Skin exam: Present: dry, intact Internal Medicine: Result - Labs CBC & Chem 7: 08/25/16 04:15 08/25/16 04:15 Labs: Short CBC 08/25/16 Range/Units 04:15 WBC 21.1 H (4.3-11.1) K/mcL Hgb 8.1 L (12.9-16.9) g/dL Hct 25.7 L (37.5-50.1) % Plt Count 210 (140-400) K/mcL Neutrophils # 18.2 H (1.6-8.9) K/mcL BMP 08/25/16 04:15 Sodium 136 Potassium 3.7 Chloride 103 Carbon Dioxide 27 BUN 11 Creatinine 0.75 Glucose 96 Calcium 7.9 L Liver Function 08/25/16 Range/Units 04:15 Total Bilirubin 10.8 H (0.2-1.2) mg/dL Direct Bilirubin 8.4 H (0.0-0.5) mg/dL AST 81 H (5-34) Units/L ALT 75 H (0-55) Units/L Alkaline Phosphatase 712 H (38-126) Units/L Albumin 1.4 L (3.5-5.0) g/dL - ABG Interpretation ABG results: PT/INR, D-dimer PT 12.9 Seconds (9.4-12.1) H 08/24/16 11:00 - Impressions Impressions Cath/Invasive Procedure 08/25/16 15:10 IMPRESSION: ERCP images from successful cannulation of an existing metallic biliary stent, with placement of a plastic stent through the metallic stent as above. Please see surgical report for complete details. D/ / Radu Lipscomb MD / Radu Lipscomb MD Interpreting Provider: Radu Lipscomb MD - VTE Documentation of Mechanical Device: Graduated compression elastic hosiery Consult Discharge Plan - Plan Referrals: Mady Aparicio MD [Primary Care Provider] - 09/03/16 10:20 am
[2016-08-26] MEDS: *HR* Morphine 2 MG/ML SYRINGE IVP PRN ×3 (03:59→22:59)
[2016-08-26 05:53] LABS: Basophils % 0.1 %; Eosinophils % 0.1 %; Hematocrit 26.8 % (37.5-50.1); Hemoglobin 8.4 g/dL (12.9-16.9); Immature Granulocytes % 0.8 % (0-4); Lymphocytes # 1.7 K/mcL (0.6-4.6); Lymphocytes % 11.5 %; Mean Corpuscular HGB Conc 31.3 g/dL (31.6-35.5); Mean Corpuscular Hemoglobin 29.7 pg (28.0-33.3); Mean Corpuscular Volume 94.7 fL (83.0-100.0); Mean Platelet Volume 9.8 fL (9.4-12.4); Monocytes # 0.9 K/mcL (0.0-1.3); Monocytes % 6.4 %; Neutrophils # 11.7 K/mcL (1.6-8.9); Platelet Count 230 K/mcL (140-400); Red Blood Count 2.83 M/mcL (4.19-5.50); Red Cell Distribution Width 17.6 % (11.5-14.5); Segmented Neutrophils % 81.1 %
[2016-08-26 06:09] LABS: Alanine Aminotransferase 83 Units/L (0-55); Albumin/Globulin Ratio 0.3 (1.1-2.2); Alkaline Phosphatase 783 Units/L (38-126); Aspartate Amino Transferase 108 Units/L (5-34); BUN/Creatinine Ratio 18 (6-26); Bilirubin,Direct 7.7 mg/dL (0.0-0.5); Bilirubin,Total 9.7 mg/dL (0.2-1.2); Blood Urea Nitrogen 15 mg/dL (8-26); Calcium 8.2 mg/dL (8.6-10.8); Carbon Dioxide 28 mEq/L (19-29); Chloride 105 mEq/L (98-109); Globulin 4.9 g/dL (2.4-3.5); Glucose 99 mg/dL (70-99); Magnesium 1.2 mg/dL (1.6-2.6); Osmolality,Calculated 283 (280-300); Potassium 3.6 mEq/L (3.5-4.5); Sodium 136 mEq/L (136-145); Total Protein 6.2 g/dL (6.0-8.3); eGFR For African Americans > 60 (> 60); eGFR For Non-African Americans > 60 (> 60)
[2016-08-26 06:10] LABS: Albumin 1.3 g/dL (3.5-5.0)
--- NOTE | 2016-08-26 09:24 | ECHO - Doppler Report ---
Echocardiogram Name: Constantin Izquierdo Date of Study: 08/25/2016 Date: 1945 Ht: 68.0 in Medical Record#: [id number] Age: 71 Wt: 110.0 lb Gender: Male BSA: 1.59 Order #: [id number] [facility] Room #: [id number] Reading Physician: Russell Fish MD, [facility] Field Kiln Burner: Tracey Diamond Ordering Physician: Daen Ott MD Primary Physician: Mady Aparicio MD Indications: Bacteremia Impressions: Technically sub-optimal due to poor echocardiographic windows. Normal LV systolic function, LVEF 60-65%. Not all myocardial segments were well visualized. Normal left ventricular diastolic function. Normal right ventricular size and function. No significant valvular dysfunction. No evidence of pulmonary hypertension. Left Ventricular Wall Motion: Rest Echo Findings All wall segments showed normal motion. Findings: Study Quality * Technically sub-optimal due to poor echocardiographic windows. ECG Findings * Normal sinus rhythm. Left Ventricle * Normal LV systolic function, LVEF 60-65%. Not all myocardial segments were well visualized. * Normal LV chamber size, wall thickness and function. * Normal left ventricular diastolic function. Right Ventricle * Normal right ventricular size and function. Left Atrium * Normal left atrial size. Right Atrium * Normal right atrial size. Aorta * Normally sized aortic root. Pericardium * There is no pericardial effusion present. IVC * The IVC is not dilated. Aortic Valve * Trileaflet aortic valve. * Mildly sclerotic aortic valve leaflets. * No aortic stenosis. * No aortic regurgitation. Mitral Valve * Mild mitral annular calcification * No mitral stenosis. * Trace mitral regurgitation. Tricuspid Valve * Normal tricuspid valve structure. * No tricuspid stenosis. * Trace tricuspid regurgitation. * No evidence of pulmonary hypertension. Pulmonic Valve * Pulmonic valve not well visualized. * No pulmonic stenosis. * No pulmonic regurgitation. History Hypertension History of Smoking Years 30 Packs 0.5 136 a was performed. Measurements: BP: 136 / 75 2D Normal Values RVIDd: 3.50 cm IVSd: .90 cm 0.6 - 1.0 cm LVIDd: 4.60 cm 3.7 - 5.6 cm LVPWd: .70 cm 0.6 - 1.1 cm LVIDs: 2.80 cm 1.5 - 3.6 cm AO: 3.20 cm < 4.0 cm %FS: 39.10 cm >25 % LA volume: 36 Mitral Valve Peak E:1.05 m/sec Peak A:.91 m/sec E/A Ratio:1.2 Tricuspid Valve TV Regurg Peak Grad: 27.00mmHg TV Regurg Peak [place]: 2.58m/sec Updated by Russell Fish MD, [facility] on 08/26/2016 9:17:29 AM electronically signed on 08/26/2016 9:18:32 AM with status of Final Wall Motion [place]: 1=Normal, 2=Hypokinesis, 3=Akinesis, 4=Dyskinesis, 5=Aneurysmal, 6=Hyperkinetic, X=Not Visualized (Blank)=Missing
[2016-08-26] MEDS: Piperacillin/Tazobactam 3.375 GM in D5% in Water (Mini-Bag+) 100 ML IVPB SCH ×3 (10:58→22:58)
[2016-08-26] MEDS: Magnesium Sulfate 2 GM in D5% in Water 100 ML IVPB SCH ×2 (11:01→12:29)
--- NOTE | 2016-08-26 18:11 | Internal Med Progress Note ---
Date of Encounter: 08/26/16 Time of Encounter: 18:06 - Assessment and plan (1) Acute cholangitis Current Visit: Yes Status: Acute Assessment and plan: Continue with zosyn. history of recent biliary stent placed, however presented jaundiced, with fever and leukocytosis in the setting of underlying malignancy. repeat blood culture. bacteremia noted, gram negative, on zosyn leukocytosis trending down.. echo: no vegettions. D/W patient. ERCP done yesterday, D/W GI Hypomagnesemia, will supplement. D/W patint and his in the morning during rounds. I was called to see the patient again in the afternoon, I D/W family members in detail about treatment given while inpatient, antibiotics, bacteremia and echo results, they expressed understanding. Follow trend of LFTs. Follow cultures. Follow Second set of BC. (2) DVT prophylaxis Current Visit: Yes Status: Acute (3) Obstructive jaundice due to malignant neoplasm Current Visit: Yes Status: Acute Assessment and plan: See above. (4) Anemia Current Visit: Yes Status: Chronic Qualifiers: Anemia type: other cause Other causes of anemia: chronic disease, neoplastic Qualified Code(s): D63.0 - Anemia in neoplastic disease (5) Colon cancer metastasized to liver Current Visit: Yes Status: Chronic Assessment and plan: Management as per oncology. - Subjective Interval history: denies shortness of breath, feels fatigued, his was at bedside. - Constitutional Vitals: Temp Pulse Resp BP Pulse Ox 98.5 F 78 16 131/78 97 08/26/16 16:01 08/26/16 16:01 08/26/16 16:01 08/26/16 16:01 08/26/16 16:01 General appearance: Present: mild distress, A&O X 3, underweight, loss of weight , answers questions appropriately Exam: jaundiced. colostomy bag noted. - Head Head exam: Present: atraumatic, normocephalic - Eye Eye exam: Present: PERRL, conjuntiva pink, sclera anicteric Pupils: Present: PERRL - Neck Neck exam general surgery: Present: supple, trachea midline. Absent: lymphadenopathy - Respiratory Respiratory exam: Present: CTAB. Absent: accessory muscle use, rales, rhonchi, wheezes - Cardiovascular Cardiovascular exam: Present: RRR, +S1, +S2. Absent: diastolic murmur, gallop, rubs, systolic murmur - GI/Abdominal GI/Abdominal exam: Present: normal bowel sounds, soft, no peritoneal signs. Absent: distended, tenderness - Extremities Exam Extremities exam: Present: warm, radial pulses palpable and symetrical. Absent : calf tenderness, cyanotic, pedal edema - Neurological Exam Neurological exam: Present: CN II-XII intact, oriented X3, no focal deficits. Absent: pronater drift, facial droop, speech deficit - Skin Skin exam: Present: dry, intact Internal Medicine: Result - Labs CBC & Chem 7: 08/26/16 05:40 08/26/16 05:40 Labs: Short CBC 08/26/16 Range/Units 05:40 WBC 14.4 H (4.3-11.1) K/mcL Hgb 8.4 L (12.9-16.9) g/dL Hct 26.8 L (37.5-50.1) % Plt Count 230 (140-400) K/mcL Neutrophils # 11.7 H (1.6-8.9) K/mcL BMP 08/26/16 05:40 Sodium 136 Potassium 3.6 Chloride 105 Carbon Dioxide 28 BUN 15 Creatinine 0.82 Glucose 99 Calcium 8.2 L Liver Function 08/26/16 Range/Units 05:40 Total Bilirubin 9.7 H (0.2-1.2) mg/dL Direct Bilirubin 7.7 H (0.0-0.5) mg/dL AST 108 H (5-34) Units/L ALT 83 H (0-55) Units/L Alkaline Phosphatase 783 H (38-126) Units/L Albumin 1.3 L (3.5-5.0) g/dL - ABG Interpretation ABG results: PT/INR, D-dimer PT 12.9 Seconds (9.4-12.1) H 08/24/16 11:00 - VTE Documentation of Mechanical Device: Graduated compression elastic hosiery Consult Discharge Plan - Plan Referrals: Mady Aparicio MD [Primary Care Provider] - 09/03/16 10:20 am
[2016-08-27] MEDS: *HR* Morphine 2 MG/ML SYRINGE IVP PRN ×3 (03:31→19:23)
[2016-08-27 03:35] LABS: Basophils % 0.1 %; Eosinophils % 0.2 %; Hematocrit 25.7 % (37.5-50.1); Hemoglobin 8.2 g/dL (12.9-16.9); Immature Granulocytes % 0.6 % (0-4); Immature Platelets 2.9 % (1.1-6.1); Lymphocytes # 1.7 K/mcL (0.6-4.6); Lymphocytes % 13.9 %; Mean Corpuscular HGB Conc 31.9 g/dL (31.6-35.5); Mean Corpuscular Hemoglobin 29.9 pg (28.0-33.3); Mean Corpuscular Volume 93.8 fL (83.0-100.0); Mean Platelet Volume 9.8 fL (9.4-12.4); Monocytes # 0.9 K/mcL (0.0-1.3); Monocytes % 6.9 %; Neutrophils # 9.7 K/mcL (1.6-8.9); Platelet Count 240 K/mcL (140-400); Red Blood Count 2.74 M/mcL (4.19-5.50); Red Cell Distribution Width 17.5 % (11.5-14.5); Segmented Neutrophils % 78.3 %
[2016-08-27 03:52] LABS: Alanine Aminotransferase 88 Units/L (0-55); Albumin/Globulin Ratio 0.3 (1.1-2.2); Alkaline Phosphatase 903 Units/L (38-126); Aspartate Amino Transferase 107 Units/L (5-34); BUN/Creatinine Ratio 20 (6-26); Bilirubin,Direct 7.4 mg/dL (0.0-0.5); Bilirubin,Indirect 1.7 mg/dL (0.0-1.2); Bilirubin,Total 9.1 mg/dL (0.2-1.2); Blood Urea Nitrogen 17 mg/dL (8-26); Calcium 7.7 mg/dL (8.6-10.8); Carbon Dioxide 29 mEq/L (19-29); Chloride 104 mEq/L (98-109); Globulin 4.9 g/dL (2.4-3.5); Glucose 109 mg/dL (70-99); Magnesium 1.8 mg/dL (1.6-2.6); Osmolality,Calculated 284 (280-300); Potassium 3.5 mEq/L (3.5-4.5); Sodium 136 mEq/L (136-145); Total Protein 6.2 g/dL (6.0-8.3); eGFR For African Americans > 60 (> 60); eGFR For Non-African Americans > 60 (> 60)
[2016-08-27 03:56] LABS: Albumin 1.3 g/dL (3.5-5.0)
[2016-08-27] MEDS ORDERED: Magnesium Sulfate 2 GM in D5% in Water 100 ML IVPB ONE (08:35)
[2016-08-27] MEDS: 0.9 % Sodium Chloride 1,000 ML IVC SCH ×2 (09:02→20:14)
[2016-08-27] MEDS: Magnesium Oxide 400 MG TABLET PO SCH ×2 (09:03→20:13)
--- NOTE | 2016-08-27 11:17 | Gastroenterology Progress Note ---
<PaulRussell Martinez - Last Filed: 08/27/16 11:14> Date of Encounter: 08/27/16 Time of Encounter: 10:10 - Assessment and plan (1) Acute cholangitis Current Visit: Yes Status: Acute Assessment and plan: Blood cultures positive for E.coli. Continue ceftriaxone. (2) Colon cancer metastasized to liver Current Visit: Yes Status: Chronic Assessment and plan: CT A/P concern for tumor extension into metal stent. On admission, TB 12, AST 93 , ALT 87, and alk phos 819. Today TB 9.1, AST 107, ALT 88, Alk phos 903. ERCP completed. Consult IR on Tuesday to see if they can assist in relieving obstruction since LFT have not significantly improved. (3) Anemia Current Visit: No Status: Chronic Assessment and plan: Continue to monitor CBC and transfuse PRBC as indicated. 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 Continues to deny abdominal pain. - Constitutional Vitals: Temp Pulse Resp BP Pulse Ox 98.4 F 61 15 134/81 96 08/27/16 06:38 08/27/16 06:38 08/27/16 06:38 08/27/16 06:38 08/27/16 09:15 General appearance: Present: cooperative, A&O X 3, no acute distress, thin, answers questions appropriately - Head Head exam: Present: atraumatic, normocephalic - Eye Eye exam: Present: scleral icterus - ENT ENT exam: Present: mucous membranes dry - Neck Neck exam general surgery: Present: normal inspection, trachea midline - Respiratory Respiratory exam: Present: decreased breath sounds, CTAB. Absent: rales, rhonchi - Cardiovascular Cardiovascular exam: Present: RRR, +S1, +S2 - GI/Abdominal GI/Abdominal exam: Present: normal bowel sounds, soft, no peritoneal signs. Absent: distended, firm, guarding Additional comments: LUQ ostomy - Rectal Rectal exam: Present: deferred - Extremities Exam Extremities exam: Present: warm - Neurological Exam Neurological exam: Present: no focal deficits - Psychiatric Psychiatric exam: Present: normal affect, normal mood - Skin Skin exam: Present: dry, intact, warm. Absent: normal color Additional comments: Jaundice Results - Labs CBC & Chem 7: 08/27/16 03:00 08/27/16 03:00 Labs: Last Result Calcium 7.7 mg/dL (8.6-10.8) L 08/27/16 03:00 Troponin I 0.01 ng/mL (0-0.03) 08/24/16 11:00 Entire Visit Hgb 8.2 g/dL (12.9-16.9) L 08/27/16 03:00 Hct 25.7 % (37.5-50.1) L 08/27/16 03:00 PT 12.9 Seconds (9.4-12.1) H 08/24/16 11:00 Total Bilirubin 9.1 mg/dL (0.2-1.2) H 08/27/16 03:00 AST 107 Units/L (5-34) H 08/27/16 03:00 ALT 88 Units/L (0-55) H 08/27/16 03:00 Lipase 29 Units/L (8-78) 08/24/16 11:00 E. coli (PCR) DETECTED (Not Detect) A 08/24/16 11:00 - ABG ABG results: PT/INR, D-dimer PT 12.9 Seconds (9.4-12.1) H 08/24/16 11:00 - VTE Documentation of Mechanical Device: Graduated compression elastic hosiery Consult Discharge Plan - Plan Referrals: Mady Aparicio MD [Primary Care Provider] - 09/03/16 10:20 am <Marah Carbone - Last Filed: 08/27/16 13:58> Date of Encounter: 08/27/16 Time of Encounter: 13:00 - Time Spent With Patient Total time spent is greater than 50% in coordination of care (as documented) at patient's floor/unit and/or counseling patient: - Constitutional Vitals: Temp Pulse Resp BP Pulse Ox 98.8 F 63 16 117/70 96 08/27/16 11:45 08/27/16 11:45 08/27/16 11:45 08/27/16 11:45 08/27/16 11:45 Results - Labs CBC & Chem 7: 08/27/16 03:00 08/27/16 03:00 Labs: Last Result Calcium 7.7 mg/dL (8.6-10.8) L 08/27/16 03:00 Troponin I 0.01 ng/mL (0-0.03) 08/24/16 11:00 Entire Visit Hgb 8.2 g/dL (12.9-16.9) L 08/27/16 03:00 Hct 25.7 % (37.5-50.1) L 08/27/16 03:00 PT 12.9 Seconds (9.4-12.1) H 08/24/16 11:00 Total Bilirubin 9.1 mg/dL (0.2-1.2) H 08/27/16 03:00 AST 107 Units/L (5-34) H 08/27/16 03:00 ALT 88 Units/L (0-55) H 08/27/16 03:00 Lipase 29 Units/L (8-78) 08/24/16 11:00 E. coli (PCR) DETECTED (Not Detect) A 08/24/16 11:00 - ABG ABG results: PT/INR, D-dimer PT 12.9 Seconds (9.4-12.1) H 08/24/16 11:00 - Attending Attestation I examined this patient and my medical decision-making was reviewed with the ELEVATOR CONSTRUCTOR/PA/Advanced Practice Nurse/Resident Physician. I agree with the documented findings, disposition and treatment plan as described except to the extent set forth below.
--- NOTE | 2016-08-27 15:54 | Internal Med Progress Note ---
Date of Encounter: 08/27/16 Time of Encounter: 15:50 - Assessment and plan (1) Acute cholangitis Current Visit: Yes Status: Acute Assessment and plan: d/c zosyn, will switch to rocephin based on cultures, e coli siolated in blood culture sensitive to rocephin. history of recent biliary stent placed, however presented jaundiced, with fever and leukocytosis in the setting of underlying malignancy. ERCP done the day before yesterday, no significant improvement in lfts and jaundice, d/w gi, will get an evaluation by interventional radiology, i called [facility] for possible PTC on tuesday. repeat blood culture shows no growth. echo: no vegetations. Hypomagnesemia, improved, will continue monitoring and supplement accordingly D/W patient and his in the morning during rounds. Follow trend of LFTs. Follow cultures. (2) DVT prophylaxis Current Visit: Yes Status: Acute (3) Obstructive jaundice due to malignant neoplasm Current Visit: Yes Status: Acute Assessment and plan: See above. (4) Anemia Current Visit: Yes Status: Chronic Qualifiers: Anemia type: other cause Other causes of anemia: chronic disease, neoplastic Qualified Code(s): D63.0 - Anemia in neoplastic disease (5) Colon cancer metastasized to liver Current Visit: Yes Status: Chronic Assessment and plan: Management as per oncology. - Subjective Interval history: denies shortness of breath, feels fatigued, his was at bedside. had breakfast. - Constitutional Vitals: Temp Pulse Resp BP Pulse Ox 98.6 F 64 15 128/76 96 08/27/16 15:00 08/27/16 15:00 08/27/16 15:00 08/27/16 15:00 08/27/16 15:00 General appearance: Present: mild distress, A&O X 3, underweight, loss of weight , answers questions appropriately Exam: jaundiced - Head Head exam: Present: atraumatic, normocephalic - Eye Eye exam: Present: PERRL, conjuntiva pink, sclera anicteric Pupils: Present: PERRL - Neck Neck exam general surgery: Present: supple, trachea midline. Absent: lymphadenopathy - Respiratory Respiratory exam: Present: CTAB. Absent: accessory muscle use, rales, rhonchi, wheezes - Cardiovascular Cardiovascular exam: Present: RRR, +S1, +S2. Absent: diastolic murmur, gallop, rubs, systolic murmur - GI/Abdominal GI/Abdominal exam: Present: normal bowel sounds, soft, no peritoneal signs. Absent: distended, tenderness Additional comments: colostomy bag noted. - Extremities Exam Extremities exam: Present: warm, radial pulses palpable and symetrical. Absent : calf tenderness, cyanotic, pedal edema - Neurological Exam Neurological exam: Present: CN II-XII intact, oriented X3, no focal deficits. Absent: pronater drift, facial droop, speech deficit - Skin Skin exam: Present: dry, intact Internal Medicine: Result - Labs CBC & Chem 7: 08/27/16 03:00 08/27/16 03:00 Labs: Short CBC 08/27/16 Range/Units 03:00 WBC 12.4 H (4.3-11.1) K/mcL Hgb 8.2 L (12.9-16.9) g/dL Hct 25.7 L (37.5-50.1) % Plt Count 240 (140-400) K/mcL Neutrophils # 9.7 H (1.6-8.9) K/mcL BMP 08/27/16 03:00 Sodium 136 Potassium 3.5 Chloride 104 Carbon Dioxide 29 BUN 17 Creatinine 0.83 Glucose 109 H Calcium 7.7 L Liver Function 08/27/16 Range/Units 03:00 Total Bilirubin 9.1 H (0.2-1.2) mg/dL Direct Bilirubin 7.4 H (0.0-0.5) mg/dL AST 107 H (5-34) Units/L ALT 88 H (0-55) Units/L Alkaline Phosphatase 903 H (38-126) Units/L Albumin 1.3 L (3.5-5.0) g/dL - ABG Interpretation ABG results: PT/INR, D-dimer PT 12.9 Seconds (9.4-12.1) H 08/24/16 11:00 - VTE Documentation of Mechanical Device: Graduated compression elastic hosiery Consult Discharge Plan - Plan Referrals: Mady Aparicio MD [Primary Care Provider] - 09/03/16 10:20 am
[2016-08-27] MEDS: Ondansetron 4 MG/2 ML VIAL IVP PRN (18:00)
[2016-08-28] MEDS: *HR* Morphine 2 MG/ML SYRINGE IVP PRN ×4 (00:11→21:40)
[2016-08-28 04:45] LABS: Basophils % 0.1 %; Eosinophils % 0.2 %; Hematocrit 26.8 % (37.5-50.1); Hemoglobin 8.5 g/dL (12.9-16.9); Immature Granulocytes % 0.6 % (0-4); Lymphocytes # 2.1 K/mcL (0.6-4.6); Mean Corpuscular HGB Conc 31.7 g/dL (31.6-35.5); Mean Corpuscular Hemoglobin 29.6 pg (28.0-33.3); Mean Corpuscular Volume 93.4 fL (83.0-100.0); Mean Platelet Volume 9.8 fL (9.4-12.4); Neutrophils # 10.7 K/mcL (1.6-8.9); Platelet Count 247 K/mcL (140-400); Red Blood Count 2.87 M/mcL (4.19-5.50); Red Cell Distribution Width 17.5 % (11.5-14.5); Segmented Neutrophils % 77.1 %
[2016-08-28 04:55] LABS: Alanine Aminotransferase 96 Units/L (0-55); Albumin/Globulin Ratio 0.3 (1.1-2.2); Alkaline Phosphatase 939 Units/L (38-126); Aspartate Amino Transferase 103 Units/L (5-34); BUN/Creatinine Ratio 18 (6-26); Bilirubin,Direct 7.8 mg/dL (0.0-0.5); Bilirubin,Indirect 1.9 mg/dL (0.0-1.2); Bilirubin,Total 9.7 mg/dL (0.2-1.2); Blood Urea Nitrogen 13 mg/dL (8-26); Calcium 7.7 mg/dL (8.6-10.8); Carbon Dioxide 30 mEq/L (19-29); Chloride 104 mEq/L (98-109); Globulin 5.1 g/dL (2.4-3.5); Glucose 94 mg/dL (70-99); Magnesium 1.8 mg/dL (1.6-2.6); Osmolality,Calculated 286 (280-300); Potassium 3.7 mEq/L (3.5-4.5); Sodium 138 mEq/L (136-145); Total Protein 6.4 g/dL (6.0-8.3); eGFR For African Americans > 60 (> 60); eGFR For Non-African Americans > 60 (> 60)
[2016-08-28 04:56] LABS: Albumin 1.3 g/dL (3.5-5.0)
[2016-08-28] MEDS: Magnesium Oxide 400 MG TABLET PO SCH ×2 (08:36→21:40)
--- NOTE | 2016-08-28 08:38 | Internal Med Progress Note ---
<Pura García - Last Filed: 08/28/16 13:00> Date of Encounter: 08/28/16 Time of Encounter: 08:30 - Assessment and plan (1) Acute cholangitis Current Visit: Yes Status: Acute Assessment and plan: 2* E coli per BC on 08/24, likely causative organism. Echo Technically sub-optimal, EF 60%, no signfiicant VHD, no evidence PAH 08/25 Repeat BC negative. Port draw BC negative. Cont Rocephin (2) Obstructive jaundice due to malignant neoplasm Current Visit: Yes Status: Acute Assessment and plan: Per above. 08/25 Underwent ERCP with biliary stent placement Monitor LFTs (3) Colon cancer metastasized to liver Current Visit: Yes Status: Chronic Assessment and plan: Management per oncology - per note they are considering restarting chemo when he is stable. Appears advanced CRC s/p colon resection Mariela pouch, now with obstructive jaundice. I had extensive discussion with patient and family member at bedside. Offered discussion of palliative options, including inpatient evaluation and HH with hospice. At this juncture, the patient declines any palliative evaluation and also declines HH hospice on discharge. (4) DVT prophylaxis Current Visit: Yes Status: Acute Assessment and plan: Lovenox 40mg SC QD - Subjective Interval history: Pt seen/eval, interval events reviewed. Currently lying in bed, Lakisha at bedside, pt consents to discussion of medical issues with her present. 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 Schultz at [facility]. He affirms his code status DNR-CCA DNI. We discussed transitioning to palliative measures and for home health hospice. He does not want to see Palliative or have HH palliative services at this time. He affirms some nausea, poor appetite, and poor sleep overnight. No fever, chills, chest pain/pressure. No vomiting. - Constitutional Vitals: Temp Pulse Resp BP Pulse Ox 98.5 F 72 16 116/70 95 08/28/16 06:38 08/28/16 06:38 08/28/16 06:38 08/28/16 06:38 08/28/16 06:38 General appearance: Present: A&O X 3, underweight, answers questions appropriately - Head Head exam: Present: atraumatic, normocephalic - Eye Eye exam: Present: EOMI, scleral icterus - ENT ENT exam: Present: mucous membranes dry (slightly dry) - Neck Neck exam general surgery: Present: supple, trachea midline - Respiratory Respiratory exam: Present: rhonchi (scant all barba, no wheeze). Absent: prolonged expiratory phase, wheezes - Cardiovascular Cardiovascular exam: Present: +S1, +S2. Absent: JVD Additional comments: Right-sided A-port in place, no fluctuance - GI/Abdominal GI/Abdominal exam: Present: soft, no peritoneal signs. Absent: tenderness Additional comments: Mariela pouch, with brown solid output, no bloody streaks noted - Extremities Exam Extremities exam: Present: warm, radial pulses palpable and symetrical. Absent : pedal edema - Neurological Exam Neurological exam: Present: strengths equal and symetr throughout. Absent: speech deficit Internal Medicine: Result - Labs CBC & Chem 7: 08/28/16 04:35 08/28/16 04:35 Labs: Short CBC 08/28/16 Range/Units 04:35 WBC 13.9 H (4.3-11.1) K/mcL Hgb 8.5 L (12.9-16.9) g/dL Hct 26.8 L (37.5-50.1) % Plt Count 247 (140-400) K/mcL Neutrophils # 10.7 H (1.6-8.9) K/mcL BMP 08/28/16 04:35 Sodium 138 Potassium 3.7 Chloride 104 Carbon Dioxide 30 H BUN 13 Creatinine 0.74 Glucose 94 Calcium 7.7 L Liver Function 08/28/16 Range/Units 04:35 Total Bilirubin 9.7 H (0.2-1.2) mg/dL Direct Bilirubin 7.8 H (0.0-0.5) mg/dL AST 103 H (5-34) Units/L ALT 96 H (0-55) Units/L Alkaline Phosphatase 939 H (38-126) Units/L Albumin 1.3 L (3.5-5.0) g/dL - ABG Interpretation ABG results: PT/INR, D-dimer PT 12.9 Seconds (9.4-12.1) H 08/24/16 11:00 - VTE Documentation of Mechanical Device: Graduated compression elastic hosiery Consult Discharge Plan - Plan Referrals: Mady Aparicio MD [Primary Care Provider] - 09/03/16 10:20 am <Jamar Alejandra - Last Filed: 08/28/16 18:03> Date of Encounter: 08/28/16 - Assessment and plan (1) Acute cholangitis Current Visit: Yes Status: Acute (2) Obstructive jaundice due to malignant neoplasm Current Visit: Yes Status: Acute (3) Colon cancer metastasized to liver Current Visit: Yes Status: Chronic (4) Anemia Current Visit: Yes Status: Chronic Qualifiers: Anemia type: other cause Other causes of anemia: chronic disease, neoplastic Qualified Code(s): D63.0 - Anemia in neoplastic disease (5) COPD (chronic obstructive pulmonary disease) Current Visit: No Status: Chronic Assessment and plan: Appears stable, no exacerbation. Cont edison alan Qualifiers: COPD type: emphysema Emphysema type: centrilobular Qualified Code(s): J43.2 - Centrilobular emphysema - Constitutional Vitals: Temp Pulse Resp BP Pulse Ox 98.2 F 66 14 128/72 95 08/28/16 16:01 08/28/16 16:01 08/28/16 16:01 08/28/16 16:01 08/28/16 06:38 Internal Medicine: Result - Labs CBC & Chem 7: 08/28/16 04:35 08/28/16 04:35 Labs: Short CBC 08/28/16 Range/Units 04:35 WBC 13.9 H (4.3-11.1) K/mcL Hgb 8.5 L (12.9-16.9) g/dL Hct 26.8 L (37.5-50.1) % Plt Count 247 (140-400) K/mcL Neutrophils # 10.7 H (1.6-8.9) K/mcL BMP 08/28/16 04:35 Sodium 138 Potassium 3.7 Chloride 104 Carbon Dioxide 30 H BUN 13 Creatinine 0.74 Glucose 94 Calcium 7.7 L Liver Function 08/28/16 Range/Units 04:35 Total Bilirubin 9.7 H (0.2-1.2) mg/dL Direct Bilirubin 7.8 H (0.0-0.5) mg/dL AST 103 H (5-34) Units/L ALT 96 H (0-55) Units/L Alkaline Phosphatase 939 H (38-126) Units/L Albumin 1.3 L (3.5-5.0) g/dL - ABG Interpretation ABG results: PT/INR, D-dimer PT 12.9 Seconds (9.4-12.1) H 08/24/16 11:00 - Attending Attestation I examined this patient and my medical decision-making was reviewed with the Resident Physician on 08/28/16. I agree with the documented findings, disposition and treatment plan as described except to the extent set forth below. Mr. Izquierdo is currently admitted for acute cholangitis and obstructive jaundice. He is high risk due to potential for worsening clinical status. Mr. Izquierdo says he feels OK. Denies nausea. at bedside. No fever or chills. To have drain placed on Tuesday. Exam Alert. Comfortable Jaundice and icterus Abd soft No wheeze Heart reg I/p 1. Acute cholangitis 2. Obstructive jaundice 3 Metastatic colon cancer Further diagnoses and plan as above I did approach the subject of palliative seeing him for help with future plans and they agree.
[2016-08-28] MEDS ORDERED: Melatonin 3 MG TABLET PO ONE (08:40)
[2016-08-28] MEDS: 0.9 % Sodium Chloride 1,000 ML IVC SCH ×2 (09:17→21:51)
[2016-08-29] MEDS: *HR* Morphine 2 MG/ML SYRINGE IVP PRN ×3 (03:27→16:46)
[2016-08-29 03:55] LABS: Hematocrit 27.1 % (37.5-50.1); Hemoglobin 8.4 g/dL (12.9-16.9); Mean Corpuscular Hemoglobin 29.5 pg (28.0-33.3); Mean Corpuscular Volume 95.1 fL (83.0-100.0); Mean Platelet Volume 9.8 fL (9.4-12.4); Platelet Count 264 K/mcL (140-400); Red Blood Count 2.85 M/mcL (4.19-5.50); Red Cell Distribution Width 17.5 % (11.5-14.5)
[2016-08-29 04:10] LABS: Alanine Aminotransferase 102 Units/L (0-55); Albumin/Globulin Ratio 0.2 (1.1-2.2); Alkaline Phosphatase 907 Units/L (38-126); Aspartate Amino Transferase 106 Units/L (5-34); BUN/Creatinine Ratio 15 (6-26); Bilirubin,Direct 7.8 mg/dL (0.0-0.5); Bilirubin,Indirect 2.1 mg/dL (0.0-1.2); Bilirubin,Total 9.9 mg/dL (0.2-1.2); Blood Urea Nitrogen 11 mg/dL (8-26); Calcium 7.6 mg/dL (8.6-10.8); Carbon Dioxide 25 mEq/L (19-29); Chloride 105 mEq/L (98-109); Globulin 5.1 g/dL (2.4-3.5); Glucose 109 mg/dL (70-99); Magnesium 1.6 mg/dL (1.6-2.6); Osmolality,Calculated 282 (280-300); Potassium 3.7 mEq/L (3.5-4.5); Sodium 136 mEq/L (136-145); Total Protein 6.3 g/dL (6.0-8.3); eGFR For African Americans > 60 (> 60); eGFR For Non-African Americans > 60 (> 60)
[2016-08-29 04:13] LABS: Albumin 1.2 g/dL (3.5-5.0)
[2016-08-29 05:35] LABS: Hypochromasia Present (Not Present); Monocytes # 0.6 K/mcL (0.0-1.3); Neutrophils # 11.6 K/mcL (1.6-8.9); Platelet Estimate Normal (Normal)
[2016-08-29 05:36] LABS: Large Platelets Present (Not Present)
[2016-08-29] MEDS: *HR* Enoxaparin 40 MG/0.4 ML SYRINGE SQ SCH (05:48)
[2016-08-29] MEDS: Magnesium Oxide 400 MG TABLET PO SCH ×2 (08:40→22:16)
--- NOTE | 2016-08-29 11:20 | Internal Med Progress Note ---
<Pura García - Last Filed: 08/29/16 11:17> Date of Encounter: 08/29/16 Time of Encounter: 10:15 - Assessment and plan (1) Acute cholangitis Current Visit: Yes Status: Acute Assessment and plan: 2* E coli per BC on 08/24, likely causative organism. Pansensitive, on Rocephin. Echo Technically sub-optimal, EF 60%, no signfiicant VHD, no evidence PAH 08/25 Repeat BC negative. Port draw BC negative. Cont Rocephin 08/28 Repeated BC, likely negative. (2) Obstructive jaundice due to malignant neoplasm Current Visit: Yes Status: Acute Assessment and plan: Per above. 08/25 Underwent ERCP with biliary stent placement Monitor LFTs, steady Anticipate Percutaneous Transhepatic Cholangiogram And Percutaneous Biliary Drainage (PTC/PBD) on Tuesday. NPO mn (3) Colon cancer metastasized to liver Current Visit: Yes Status: Chronic Assessment and plan: Management per oncology - per note they are considering restarting chemo when he is stable. Appears advanced CRC s/p colon resection Mariela pouch, now with obstructive jaundice. I had extensive discussion with patient and family member at bedside. Offered discussion of palliative options, including inpatient evaluation and HH with hospice. At this juncture, the patient declines any palliative evaluation and also declines HH hospice on discharge. (4) DVT prophylaxis Current Visit: Yes Status: Acute Assessment and plan: Lovenox 40mg SC QD - Subjective Interval history: Pt seen/eval, reports his appetite has improved slightly. Still has poor sleep. Denies chest pain/abd pain or other concerns. - Constitutional Vitals: Temp Pulse Resp BP Pulse Ox 98.8 F 69 16 137/78 97 08/29/16 07:52 08/29/16 07:52 08/29/16 07:52 08/29/16 07:52 08/29/16 09:02 General appearance: Present: A&O X 3, underweight, answers questions appropriately - Head Head exam: Present: atraumatic, normocephalic - Eye Eye exam: Present: EOMI, scleral icterus - ENT ENT exam: Present: mucous membranes moist - Neck Neck exam general surgery: Present: supple, trachea midline - Respiratory Respiratory exam: Present: rhonchi. Absent: accessory muscle use, wheezes - Cardiovascular Cardiovascular exam: Present: +S1, +S2. Absent: JVD Additional comments: Right port - GI/Abdominal GI/Abdominal exam: Present: soft, no peritoneal signs. Absent: tenderness Additional comments: Colostomy bag, residual output, no blood - Extremities Exam Extremities exam: Present: warm, radial pulses palpable and symetrical. Absent : pedal edema Internal Medicine: Result - Labs CBC & Chem 7: 08/29/16 03:30 08/29/16 03:30 Labs: Short CBC 08/29/16 Range/Units 03:30 WBC 14.2 H (4.3-11.1) K/mcL Hgb 8.4 L (12.9-16.9) g/dL Hct 27.1 L (37.5-50.1) % Plt Count 264 (140-400) K/mcL Neutrophils # 11.6 H (1.6-8.9) K/mcL BMP 08/29/16 03:30 Sodium 136 Potassium 3.7 Chloride 105 Carbon Dioxide 25 BUN 11 Creatinine 0.71 L Glucose 109 H Calcium 7.6 L Liver Function 08/29/16 Range/Units 03:30 Total Bilirubin 9.9 H (0.2-1.2) mg/dL Direct Bilirubin 7.8 H (0.0-0.5) mg/dL AST 106 H (5-34) Units/L ALT 102 H (0-55) Units/L Alkaline Phosphatase 907 H (38-126) Units/L Albumin 1.2 L (3.5-5.0) g/dL - ABG Interpretation ABG results: PT/INR, D-dimer PT 12.9 Seconds (9.4-12.1) H 08/24/16 11:00 - VTE Documentation of Mechanical Device: Graduated compression elastic hosiery Consult Discharge Plan - Plan Referrals: Mady Aparicio MD [Primary Care Provider] - 09/03/16 10:20 am <Jamar Alejandra - Last Filed: 08/29/16 17:45> Date of Encounter: 08/29/16 - Assessment and plan (1) Acute cholangitis Current Visit: Yes Status: Acute (2) Obstructive jaundice due to malignant neoplasm Current Visit: Yes Status: Acute (3) Colon cancer metastasized to liver Current Visit: Yes Status: Chronic (4) Anemia Current Visit: Yes Status: Chronic Qualifiers: Anemia type: other cause Other causes of anemia: chronic disease, neoplastic Qualified Code(s): D63.0 - Anemia in neoplastic disease (5) COPD (chronic obstructive pulmonary disease) Current Visit: No Status: Chronic Qualifiers: COPD type: emphysema Emphysema type: centrilobular Qualified Code(s): J43.2 - Centrilobular emphysema - Constitutional Vitals: Temp Pulse Resp BP Pulse Ox 98.6 F 65 14 144/85 97 08/29/16 17:39 08/29/16 16:36 08/29/16 16:36 08/29/16 16:36 08/29/16 16:36 Internal Medicine: Result - Labs CBC & Chem 7: 08/29/16 03:30 08/29/16 03:30 Labs: Short CBC 08/29/16 Range/Units 03:30 WBC 14.2 H (4.3-11.1) K/mcL Hgb 8.4 L (12.9-16.9) g/dL Hct 27.1 L (37.5-50.1) % Plt Count 264 (140-400) K/mcL Neutrophils # 11.6 H (1.6-8.9) K/mcL BMP 08/29/16 03:30 Sodium 136 Potassium 3.7 Chloride 105 Carbon Dioxide 25 BUN 11 Creatinine 0.71 L Glucose 109 H Calcium 7.6 L Liver Function 08/29/16 Range/Units 03:30 Total Bilirubin 9.9 H (0.2-1.2) mg/dL Direct Bilirubin 7.8 H (0.0-0.5) mg/dL AST 106 H (5-34) Units/L ALT 102 H (0-55) Units/L Alkaline Phosphatase 907 H (38-126) Units/L Albumin 1.2 L (3.5-5.0) g/dL - ABG Interpretation ABG results: PT/INR, D-dimer PT 12.9 Seconds (9.4-12.1) H 08/24/16 11:00 - Attending Attestation I examined this patient and my medical decision-making was reviewed with the Resident Physician on 08/29/16. I agree with the documented findings, disposition and treatment plan as described except to the extent set forth below. Mr. Izquierdo is currently admitted for acute cholangitis and obstructive jaundice. He is moderate to high risk due to potential for worsening infectious status. Mr Izquierdo is resting comfortably. His is at bedside. No fever or chills. Pain appears to be controlled. No nausea or other GI issues. Exam Alert. Comfortable Heart reg Jaundice present No wheeze I/P 1. Acute cholangitis 2. Obstructive jaundice Further diagnoses and plan as above.
[2016-08-29] MEDS: 0.9 % Sodium Chloride 1,000 ML IVC SCH ×2 (11:25→23:50)
[2016-08-29] MEDS: Ondansetron 4 MG/2 ML VIAL IVP PRN (17:49)
[2016-08-30] MEDS: *HR* Morphine 2 MG/ML SYRINGE IVP PRN ×2 (00:41→04:50)
[2016-08-30 05:17] LABS: INR 1.4; Prothrombin Time 14.7 Seconds (9.4-12.1)
[2016-08-30 05:26] LABS: Alanine Aminotransferase 99 Units/L (0-55); Albumin/Globulin Ratio 0.2 (1.1-2.2); Alkaline Phosphatase 1022 Units/L (38-126); Aspartate Amino Transferase 101 Units/L (5-34); BUN/Creatinine Ratio 14 (6-26); Bilirubin,Direct 8.7 mg/dL (0.0-0.5); Bilirubin,Indirect 1.7 mg/dL (0.0-1.2); Bilirubin,Total 10.4 mg/dL (0.2-1.2); Blood Urea Nitrogen 10 mg/dL (8-26); Calcium 7.7 mg/dL (8.6-10.8); Carbon Dioxide 29 mEq/L (19-29); Chloride 104 mEq/L (98-109); Glucose 84 mg/dL (70-99); Osmolality,Calculated 280 (280-300); Potassium 3.6 mEq/L (3.5-4.5); Sodium 136 mEq/L (136-145); Total Protein 6.2 g/dL (6.0-8.3); eGFR For African Americans > 60 (> 60); eGFR For Non-African Americans > 60 (> 60)
[2016-08-30 05:27] LABS: Albumin 1.2 g/dL (3.5-5.0)
[2016-08-30] MEDS: *HR* Enoxaparin 40 MG/0.4 ML SYRINGE SQ SCH (05:29)
[2016-08-30 06:09] LABS: Hematocrit 26.6 % (37.5-50.1); Hemoglobin 8.2 g/dL (12.9-16.9); Immature Platelets 3.5 % (1.1-6.1); Mean Corpuscular HGB Conc 30.8 g/dL (31.6-35.5); Mean Corpuscular Hemoglobin 29.5 pg (28.0-33.3); Mean Corpuscular Volume 95.7 fL (83.0-100.0); Mean Platelet Volume 10.1 fL (9.4-12.4); Platelet Count 312 K/mcL (140-400); Red Blood Count 2.78 M/mcL (4.19-5.50); Red Cell Distribution Width 17.9 % (11.5-14.5)
[2016-08-30 07:22] VITALS: BP 131/76
[2016-08-30 07:33] LABS: Monocytes # 0.3 K/mcL (0.0-1.3); Neutrophils # 11.7 K/mcL (1.6-8.9)
[2016-08-30 07:34] LABS: Platelet Estimate Normal (Normal)
--- NOTE | 2016-08-30 08:29 | Internal Med Progress Note ---
<Pura García - Last Filed: 08/30/16 09:23> Date of Encounter: 08/30/16 Time of Encounter: 08:30 - Assessment and plan (1) Acute cholangitis Status: Acute Assessment and plan: 2* E coli per BC on 08/24, likely causative organism. Pansensitive, on Rocephin. Echo Technically sub-optimal, EF 60%, no signfiicant VHD, no evidence PAH 08/25 Repeat BC negative. Port draw BC negative. Cont Rocephin 08/28 Repeated BC, negative Discussed with IR - Dr. Alfredo, Percutaneous Transhepatic Cholangiogram And Percutaneous Biliary Drainage (PTC/PBD) Not a candidate. He has nonremovable metal biliary stents in peripheral sites which block access for percutaneous drainage. The patient has advanced metastatic disease, would be appropriate candidate for considering hospice. He is agreeable to discussion of palliative options. Informed palliative team, appreciate recs. (2) Obstructive jaundice due to malignant neoplasm Status: Acute Assessment and plan: Per above. 08/25 Underwent ERCP with biliary stent placement Monitor LFTs, steady Per above. (3) Colon cancer metastasized to liver Status: Chronic Assessment and plan: Management per oncology - per note they are considering restarting chemo when he is stable. Appears advanced CRC s/p colon resection Mariela pouch, now with obstructive jaundice. I had extensive discussion with patient and family member at bedside. Offered discussion of palliative options, including inpatient evaluation and HH with hospice. At this juncture, the patient declines any palliative evaluation and also declines HH hospice on discharge. (4) DVT prophylaxis Status: Acute Assessment and plan: Lovenox 40mg SC QD - Subjective Interval history: Pt seen/eval, reports he slept better overnight. Interval would have colostomy bag changed, no abd pain, chest pain or other concerns at this time. - Constitutional Vitals: Temp Pulse Resp BP Pulse Ox 98.3 F 73 15 131/76 95 08/30/16 07:21 08/30/16 07:21 08/30/16 07:21 08/30/16 07:21 08/30/16 07:21 General appearance: Present: A&O X 3, underweight, answers questions appropriately - Head Head exam: Present: atraumatic, normocephalic - Eye Eye exam: Present: EOMI, scleral icterus - ENT ENT exam: Present: mucous membranes moist - Neck Neck exam general surgery: Present: supple, trachea midline - Respiratory Respiratory exam: Absent: accessory muscle use, rhonchi, wheezes - Cardiovascular Cardiovascular exam: Present: +S1, +S2. Absent: JVD - GI/Abdominal GI/Abdominal exam: Present: soft, no peritoneal signs. Absent: tenderness Additional comments: Colostomy bag, cdi - Extremities Exam Extremities exam: Present: warm, radial pulses palpable and symetrical - Neurological Exam Neurological exam: Present: strengths equal and symetr throughout Internal Medicine: Result - Labs CBC & Chem 7: 08/30/16 04:45 08/30/16 04:45 Labs: Short CBC 08/30/16 Range/Units 04:45 WBC 15.0 H (4.3-11.1) K/mcL Hgb 8.2 L (12.9-16.9) g/dL Hct 26.6 L (37.5-50.1) % Plt Count 312 (140-400) K/mcL Neutrophils # 11.7 H (1.6-8.9) K/mcL BMP 08/30/16 04:45 Sodium 136 Potassium 3.6 Chloride 104 Carbon Dioxide 29 BUN 10 Creatinine 0.69 L Glucose 84 Calcium 7.7 L Liver Function 08/30/16 Range/Units 04:45 Total Bilirubin 10.4 H (0.2-1.2) mg/dL Direct Bilirubin 8.7 H (0.0-0.5) mg/dL AST 101 H (5-34) Units/L ALT 99 H (0-55) Units/L Alkaline Phosphatase 1022 H (38-126) Units/L Albumin 1.2 L (3.5-5.0) g/dL - ABG Interpretation ABG results: PT/INR, D-dimer PT 14.7 Seconds (9.4-12.1) H 08/30/16 04:45 - VTE Documentation of Mechanical Device: Graduated compression elastic hosiery Consult Discharge Plan - Plan Instructions: Dronabinol (By mouth), Oxycodone, Rapid Release (By mouth), Cefdinir (By mouth), Chronic Obstructive Pulmonary Disease (DC) Referrals: Mady Aparicio MD [Primary Care Provider] - 09/03/16 10:20 am Prescriptions: OxyCODONE Immed Rel [Roxicodone 5 MG] 5 mg PO Q6HR PRN #20 tablet PRN Reason: Pain Cefdinir [Omnicef] 300 mg PO BID #8 capsule Dronabinol [Marinol] 5 mg PO BIDLS #40 capsule <Jamar Alejandra - Last Filed: 08/30/16 20:06> Date of Encounter: 08/30/16 - Assessment and plan (1) Acute cholangitis Status: Acute (2) Obstructive jaundice due to malignant neoplasm Status: Acute (3) Colon cancer metastasized to liver Status: Chronic (4) Anemia Status: Chronic Qualifiers: Anemia type: other cause Other causes of anemia: chronic disease, neoplastic Qualified Code(s): D63.0 - Anemia in neoplastic disease (5) COPD (chronic obstructive pulmonary disease) Status: Chronic Qualifiers: COPD type: emphysema Emphysema type: centrilobular Qualified Code(s): J43.2 - Centrilobular emphysema - Constitutional Vitals: Temp Pulse Resp BP Pulse Ox 98.3 F 73 15 131/76 95 08/30/16 07:21 08/30/16 07:21 08/30/16 07:21 08/30/16 07:21 08/30/16 09:00 Internal Medicine: Result - Labs CBC & Chem 7: 08/30/16 04:45 08/30/16 04:45 Labs: Short CBC 08/30/16 Range/Units 04:45 WBC 15.0 H (4.3-11.1) K/mcL Hgb 8.2 L (12.9-16.9) g/dL Hct 26.6 L (37.5-50.1) % Plt Count 312 (140-400) K/mcL Neutrophils # 11.7 H (1.6-8.9) K/mcL BMP 08/30/16 04:45 Sodium 136 Potassium 3.6 Chloride 104 Carbon Dioxide 29 BUN 10 Creatinine 0.69 L Glucose 84 Calcium 7.7 L Liver Function 08/30/16 Range/Units 04:45 Total Bilirubin 10.4 H (0.2-1.2) mg/dL Direct Bilirubin 8.7 H (0.0-0.5) mg/dL AST 101 H (5-34) Units/L ALT 99 H (0-55) Units/L Alkaline Phosphatase 1022 H (38-126) Units/L Albumin 1.2 L (3.5-5.0) g/dL - ABG Interpretation ABG results: PT/INR, D-dimer PT 14.7 Seconds (9.4-12.1) H 08/30/16 04:45 - Attending Attestation See discharge summary of this date.
[2016-08-30] MEDS: Magnesium Oxide 400 MG TABLET PO SCH (08:53)
--- NOTE | 2016-08-30 09:59 | Palliative - Consult Note ---
Date of Encounter: 08/30/16 Time of Encounter: 09:51 - Assessment and Plan (1) Goals of care, counseling/discussion Current Visit: Yes Status: Acute Assessment and plan: Patient confirmed to me that he would remain a DNR-CCA/DNI CODE STATUS IR was consulted for possible placement of drain, but he has been determined to not be a candidate At this time, patient would not like to pursue any other aggressive treatment for his obstructive jaundice and prefers to go home back with home health Hospice was briefly discussed and he clearly denied interest at this moment Lakisha is at bedside and states there is no durable power of production cell leader in place yet; social work has been consulted Palliative-CN HPI - Data of Consult Patient: new to practice Consult date: 08/30/16 Requesting Physician: Jamar Alejandra DO Primary Care Provider: Mady Aparicio MD - Consult Narrative Palliative Care/Comfort Measures: Palliative care Reason for consult: discuss goals of care History of present illness: Mr. Izquierdo is a 71 year old male who presented from his oncologist office for obstructive jaundice secondary to colon cancer metastasis. He sees Dr. Schultz as his oncologist and has had a colectomy and has a colostomy for the past several years. He states the jaundice has been going on for months and he had an ERCP with stent placement 03/24 and was re-stented 5 days ago. He has been having poor appetite for some time that he thinks is related to him not moving much and does report nausea without vomiting. He has intermittent abdominal pain but has no issues with urinating and has no problems with his colostomy. His Lakisha lives at home with the patient. He states he gets around pretty well and relies minimally on walker/cane to get around. He already has home health setup , and is anxious to go home today. CC: Jamar Alejandra DO Past Med Surg Social Fam HX - Past Medical History Medical history: cancer, COPD, hypertension Psychiatric history: depression - Past Surgical History Surgical History: cancer surgery, colectomy, colostomy - Social History Smoking Status: Current every day smoker Smokeless Tobacco Status: No Alcohol use: none Drug use: none - Family History Mother Living Status: Hx Family Cardiac Disorders: Yes Medications and Allergies Ondansetron HCl 4 mg PO Q8H PRN 08/11/16 [History] Prochlorperazine Maleate [Compazine] 10 mg PO Q8HR PRN 08/11/16 [History] Amoxicillin/Clavulanate [Augmentin] 875 mg PO BIDWM #14 tablet MDD FOR 10 DAYS 08/23/16 [Rx] Atenolol [Tenormin] 25 mg PO DAILY 08/24/16 [History] Lactose-Reduced Food [Ensure Liquid] 1 bottle PO TID 08/24/16 [History] Lisinopril/Hydrochlorothiazide [Zestoretic 20-12.5 mg Tablet] 1 tab PO DAILY [History] OxyCODONE Immed Rel [Roxicodone 5 MG] 5 mg PO Q6HR PRN 08/24/16 [History] Allergies sulfamethoxazole Allergy (Verified 08/24/16 10:34) Rash trimethoprim Allergy (Verified 08/24/16 10:34) Rash - Constitutional Constitutional ROS PAL: decreased appetite, no frequent falls - Cardiovascular Cardiovascular ROS: no chest pain, no edema, no irregular heart rhythm, no leg edema, no syncope - Respiratory Respiratory: no cough, no hemoptysis, no dyspnea on exertion, no wheezing - Gastrointestinal Gastrointestinal: abdominal pain, nausea, no constipation, no diarrhea, no vomiting - Genitourinary Genitourinary ROS male: no difficulty urinating, no urinary hesitancy, no urinary incontinence - Integumentary ROS Integumentary: jaundice - Neurological Neurological ROS: weakness, no headache(s) Palliative Care-Exam - Constitutional Vitals: Temp Pulse Resp BP Pulse Ox 98.3 F 73 15 131/76 95 08/30/16 07:21 08/30/16 07:21 08/30/16 07:21 08/30/16 07:21 08/30/16 07:21 General appearance: Present: cooperative, no acute distress, thin - Head Head Exam: Present: atraumatic, normal inspection, normocephalic - Eye Eye exam: Present: EOMI, PERRL, scleral icterus - Respiratory Respiratory exam: Present: CTAB - Cardiovascular Cardiovascular exam: Present: +S1, +S2 - GI/Abdominal Exam GI/Abdominal exam: Present: normal bowel sounds, soft. Absent: distended, tenderness additional comments: colostomy seen in LUQ, no drainage or erythema noted - Neurological Exam Neurological exam: Present: alert, oriented X3. Absent: facial droop, speech deficit Internal Medicine - CN: Reslt - Labs CBC & Chem 7: 08/30/16 04:45 08/30/16 04:45 Labs: Short CBC 08/30/16 Range/Units 04:45 WBC 15.0 H (4.3-11.1) K/mcL Hgb 8.2 L (12.9-16.9) g/dL Hct 26.6 L (37.5-50.1) % Plt Count 312 (140-400) K/mcL Neutrophils # 11.7 H (1.6-8.9) K/mcL BMP 08/30/16 04:45 Sodium 136 Potassium 3.6 Chloride 104 Carbon Dioxide 29 BUN 10 Creatinine 0.69 L Glucose 84 Calcium 7.7 L Liver Function 08/30/16 Range/Units 04:45 Total Bilirubin 10.4 H (0.2-1.2) mg/dL Direct Bilirubin 8.7 H (0.0-0.5) mg/dL AST 101 H (5-34) Units/L ALT 99 H (0-55) Units/L Alkaline Phosphatase 1022 H (38-126) Units/L Albumin 1.2 L (3.5-5.0) g/dL - ABG Interpretation ABG results: PT/INR, D-dimer PT 14.7 Seconds (9.4-12.1) H 08/30/16 04:45 Consult Discharge Plan - Plan Referrals: Mady Aparicio MD [Primary Care Provider] - 09/03/16 10:20 am Palliative Quality Palliative Quality: Screen for Code Status: Yes, Screen for Goals of Care: Yes, Screen for Pain: Yes, If Pain Regimen Started, Initiate Bowel Regimen: No, Screen for Nausea/Vomitting: Yes
--- NOTE | 2016-08-30 11:39 | Discharge Summary ---
<Pura García - Last Filed: 08/30/16 11:43> Date of Encounter: 08/30/16 Time of Encounter: 11:30 - Discharge Diagnosis (1) Acute cholangitis Priority: Primary Status: Acute (2) Obstructive jaundice due to malignant neoplasm Priority: Secondary Status: Acute (3) Colon cancer metastasized to liver Priority: Primary Status: Chronic (4) DVT prophylaxis Priority: Secondary Status: Acute - Discharge Medications Prescriptions: OxyCODONE Immed Rel [Roxicodone 5 MG] 5 mg PO Q6HR PRN #20 tablet PRN Reason: Pain Cefdinir [Omnicef] 300 mg PO BID #8 capsule Dronabinol [Marinol] 5 mg PO BIDLS #40 capsule Home Medications: Ondansetron HCl 4 mg PO Q8H PRN 08/11/16 [History] Prochlorperazine Maleate [Compazine] 10 mg PO Q8HR PRN 08/11/16 [History] Atenolol [Tenormin] 25 mg PO DAILY 08/24/16 [History] Lactose-Reduced Food [Ensure Liquid] 1 bottle PO TID 08/24/16 [History] Lisinopril/Hydrochlorothiazide [Zestoretic 20-12.5 mg Tablet] 1 tab PO DAILY [History] Cefdinir [Omnicef] 300 mg PO BID #8 capsule 08/30/16 [Rx] Dronabinol [Marinol] 5 mg PO BIDLS #40 capsule 08/30/16 [Rx] OxyCODONE Immed Rel [Roxicodone 5 MG] 5 mg PO Q6HR PRN #20 tablet 08/30/16 [Rx] Allergies/Adverse Reactions: Allergies sulfamethoxazole Allergy (Verified 08/24/16 10:34) Rash trimethoprim Allergy (Verified 08/24/16 10:34) Rash Date of admission: 08/24/16 13:58 Primary care physician: Mady Aparicio MD Consults: 08/27/16 15:55 Consult to Interventional Radiology [CONS] Routine Consulting Provider: Radiology Interventional Cols Reason for Consult: evaluation for possible PTC on tuesday, patient with colon cancer with liver mets, ercp with placement of biliary stents have failed and still no improvement in jaundice and lfts. Call Completed: No 08/30/16 07:00 Consult to Interventional Radiology [CONS] Routine Consulting Provider: Radiology Interventional Cols Reason for Consult: known Colon cancer mets to liver, with obstructive cholangitis and jaundice. No improvement in LFTs after biliary stent. Eval for PCT Call Completed: No 08/30/16 09:21 Consult to Palliative Care [CONS] Routine Comment: met colon ca, invading bile duct Consulting Provider: Palliative Care Pe Ell 08/30/16 10:06 Consult to Partition Making Machine Operator [CONS] Routine Reason for SW Consult: has home health, setup POA Discharging clinician: Jamar Alejandra Anticipated date of discharge: 08/30/16 - Patient Status Disposition: Home Health Service Condition: Fair Functional capacity at discharge: independent ambulation Overall status at discharge: patient is progressing back to baseline - Discharge Instructions Instructions: Dronabinol (By mouth), Oxycodone, Rapid Release (By mouth), Cefdinir (By mouth), Chronic Obstructive Pulmonary Disease (DC) Follow Up With: Mady Aparicio MD [Primary Care Provider] - 09/03/16 10:20 am Forms: ED Satisfaction Letter - Diet and Activity Activity: increase activity as tolerated Diet: advance to your usual diet Hospital course: Mr. Izquierdo is a 71 year old male Presented with abdominal pain. Has significant history including metastatic CRC s/p resection with Mariela pouch, known mets to liver, followed by Dr. Schultz at [facility]. He affirms his code status DNR-CCA DNI. Would have elevated LFTs, suggestive of obstructive cholangitis. BC x 2 noted pansensitive E. Coli. He would receive antibiotics, then tailored to Rocephin, monitored LFTs. GI consult for stent placement in biliary system to relieve obstructive jaundice. CT A/P concern for tumor extension into metal stent. On admission, TB 12, AST 93 , ALT 87, and alk phos 819. Today TB 10.8, AST 81, ALT 75, Alk phos 712. Plan for ERCP. Oncology was consulted and concurred with treatment plan. Echo Technically sub-optimal, EF 60%, no signfiicant VHD, no evidence PAH 08/25 Repeat BC negative. Port draw BC negative. Cont Rocephin 08/28 Repeated BC, negative Following stent placement, patient would have LFTs monitored, continued to be elevated. He would inquire for percutaneous biliary drainage. Discussed with IR - Dr. Alfredo, Percutaneous Transhepatic Cholangiogram And Percutaneous Biliary Drainage (PTC/PBD) Not a candidate. He has nonremovable metal biliary stents in peripheral sites which block access for percutaneous drainage. The patient has advanced metastatic disease, would be appropriate candidate for considering hospice. He is agreeable to discussion of palliative options. Palliative consulted to discuss options. At this time, patient would not like to pursue any other aggressive treatment for his obstructive jaundice and prefers to go home back with home health Hospice was briefly discussed and he clearly denied interest at this moment Lakisha is at bedside and states there is no durable power of hydrate control tender in place yet; social work has been consulted Patient opted to return home with his current HH. At time of discharge, patient was hemodynamically stable and agreeable with plan of care. Patient was advised to seek immediate medical attention for any new or worsening symptoms including but not limited to fever, chills, chest pain, chest pressure, dyspnea, cough, abdominal pain, nausea, vomiting, diarrhea, bloody stool, urine and the patient voiced understanding. Patient will follow-up with oncologist Dr. Garcia. OARRS reviewed. Due to significant pain from large tumor burden, appropriate to continue oxycodone 5mg Q6H prn pain. #20 Will complete 4 more days of cefdinir for e. coli bacteremia. - Time Spent with Patient Total time spent providing and/or coordinating discharge services: Greater than 30 minutes - Constitutional Vitals: Temp Pulse Resp BP Pulse Ox 98.3 F 73 15 131/76 95 08/30/16 07:21 08/30/16 07:21 08/30/16 07:21 08/30/16 07:21 08/30/16 07:21 General appearance: Present: A&O X 3, underweight, answers questions appropriately - Head Head exam: Present: atraumatic, normocephalic - Eye Eye exam: Present: EOMI, scleral icterus - ENT ENT exam: Present: mucous membranes moist - Neck Neck exam general surgery: Present: supple, trachea midline - Respiratory Respiratory exam: Absent: rhonchi, wheezes - Cardiovascular Cardiovascular exam: Present: +S1, +S2. Absent: JVD - GI/Abdominal GI/Abdominal exam: Present: no peritoneal signs. Absent: tenderness Additional comments: colostomy in place - Extremities Exam Extremities exam: Present: warm, radial pulses palpable and symetrical. Absent : pedal edema - VTE Documentation of Mechanical Device: Graduated compression elastic hosiery <Jamar Alejandra - Last Filed: 08/30/16 20:10> Date of Encounter: 08/30/16 - Discharge Diagnosis (1) Acute cholangitis Status: Acute (2) Obstructive jaundice due to malignant neoplasm Status: Acute (3) Colon cancer metastasized to liver Status: Chronic (4) Anemia Priority: Secondary Status: Chronic Qualifiers: Anemia type: other cause Other causes of anemia: chronic disease, neoplastic Qualified Code(s): D63.0 - Anemia in neoplastic disease (5) COPD (chronic obstructive pulmonary disease) Priority: Secondary Status: Chronic Qualifiers: COPD type: emphysema Emphysema type: centrilobular Qualified Code(s): J43.2 - Centrilobular emphysema Date of admission: 08/24/16 13:58 Primary care physician: Mady Aparicio MD Consults: 08/27/16 15:55 Consult to Interventional Radiology [CONS] Routine Consulting Provider: Radiology Interventional Cols Reason for Consult: evaluation for possible PTC on tuesday, patient with colon cancer with liver mets, ercp with placement of biliary stents have failed and still no improvement in jaundice and lfts. Call Completed: No 08/30/16 07:00 Consult to Interventional Radiology [CONS] Routine Consulting Provider: Radiology Interventional Cols Reason for Consult: known Colon cancer mets to liver, with obstructive cholangitis and jaundice. No improvement in LFTs after biliary stent. Eval for PCT Call Completed: No 08/30/16 09:21 Consult to Palliative Care [CONS] Routine Comment: met colon ca, invading bile duct Consulting Provider: Palliative Care Mari 08/30/16 10:06 Consult to Partition Making Machine Operator [CONS] Routine Reason for SW Consult: has home health, setup POA Hospital course: Mr. Izquierdo is a 71 year old male - Time Spent with Patient Total time spent providing and/or coordinating discharge services: 38min - Constitutional Vitals: Temp Pulse Resp BP Pulse Ox 98.3 F 73 15 131/76 95 08/30/16 07:21 08/30/16 07:21 08/30/16 07:21 08/30/16 07:21 08/30/16 09:00 - Attending Attestation I examined this patient and my medical decision-making was reviewed with the Resident Physician on 08/30/16. I agree with the documented findings, disposition and treatment plan as described except to the extent set forth below. Mr. Izquierdo cannot have IR procedure. He wants to go home at this time. He is afebrile and vitals stable. Exam Alert. Frustrated Heart reg No wheeze Plan D/C home with [facility]
--- NOTE | 2016-08-30 13:15 | Physician Discharge Referral ---
Home Health/Hosp Referral Info Transfer to: Home Health Attending Provider: Dr. Jamar Alejandra Provider in Charge Post Discharge: PCP - Diagnosis (1) Acute cholangitis Priority: Primary Status: Acute (2) Obstructive jaundice due to malignant neoplasm Priority: Secondary Status: Acute (3) Colon cancer metastasized to liver Priority: Primary Status: Chronic (4) DVT prophylaxis Priority: Secondary Status: Acute - Respiratory Orders Oxygen / L per min (2) Smoking Cessation: Smoking cessation has been advised. For more information, call the [place] Tobacco Quit Line at 7-967-MCGU-NOW. - Diet/Nutrition Diet/Nutrition Orders: Regular - Activity Activity Orders: Up ad augustin - Services Needed Following services are medically necessary services: Nursing, Home Health Aide - Transfer Medications Prescriptions: OxyCODONE Immed Rel [Roxicodone 5 MG] 5 mg PO Q6HR PRN #20 tablet PRN Reason: Pain Cefdinir [Omnicef] 300 mg PO BID #8 capsule Dronabinol [Marinol] 5 mg PO BIDLS #40 capsule Home Medications: Ondansetron HCl 4 mg PO Q8H PRN 08/11/16 [History] Prochlorperazine Maleate [Compazine] 10 mg PO Q8HR PRN 08/11/16 [History] Atenolol [Tenormin] 25 mg PO DAILY 08/24/16 [History] Lactose-Reduced Food [Ensure Liquid] 1 bottle PO TID 08/24/16 [History] Lisinopril/Hydrochlorothiazide [Zestoretic 20-12.5 mg Tablet] 1 tab PO DAILY [History] Cefdinir [Omnicef] 300 mg PO BID #8 capsule 08/30/16 [Rx] Dronabinol [Marinol] 5 mg PO BIDLS #40 capsule 08/30/16 [Rx] OxyCODONE Immed Rel [Roxicodone 5 MG] 5 mg PO Q6HR PRN #20 tablet 08/30/16 [Rx] Allergies/Adverse Reactions: Allergies sulfamethoxazole Allergy (Verified 08/24/16 10:34) Rash trimethoprim Allergy (Verified 08/24/16 10:34) Rash Certification: Further, I certify that my clinical findings support that this patient is homebound (i.e. absences from home require considerable and taxing effort and are for medical reasons or advent services or infrequently or short duration when for other reasons) because: Homebound Reason: Patient requires assistance of a person or device to safely leave home, Absences from home are contraindicated except to recieve medical care, Post-surgery restriction and or conditions limit ability to leave home, Leaving home requires considerable and taxing effort due to condition, Altered mental status requiring supervision when leaving home, Severity of cardiac or pulmonary status limits activity tolerance Attestation: My signature below is to certify that this patient is under my care and that I, or nurse practitioner, or a physician's support assistant working with me, has a face-to -face encounter with this patient.
== END 2016-08-30 13:42 | disposition home health service (06) | DRG 444 ==
LOC: EMEROO 10:17 → 2NENU 10:17 → SUATTDRO 13:58
PROVIDERS: ADMIT Internal Medicine; ATTEND Internal Medicine